=== PATIENT | female | born 1945 | race American Indian/Alaskan Native ===

== ENCOUNTER 2017-08-16 11:35 | Emergency (ER) | payer OTHER, MEDICARE ==
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
[2017-08-16 12:22] LABS: CHLORIDE,CL 106 mmol/L (101-111); SODIUM,NA 135 mmol/L (135-145)
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
== END 2017-08-16 13:22 | disposition home or self-care (01) ==
LOC: DL.ED 11:35
DX: S60.211A Contusion of right wrist, initial encounter (principal); S80.211A Abrasion, right knee, initial encounter; I10 Essential (primary) hypertension; I25.10 Atherosclerotic heart disease of native coronary artery without angina pectoris; E78.00 Pure hypercholesterolemia, unspecified; E11.42 Type 2 diabetes mellitus with diabetic polyneuropathy; Z79.4 Long term (current) use of insulin; Z79.82 Long term (current) use of aspirin; Z79.02 Long term (current) use of antithrombotics/antiplatelets; Z79.899 Other long term (current) drug therapy; Z88.0 Allergy status to penicillin; Z88.5 Allergy status to narcotic agent; Z88.8 Allergy status to other drugs, medicaments and biological substances; V43.53XA Car driver injured in collision with pick-up truck in traffic accident, initial encounter; Y92.410 Unspecified street and highway as the place of occurrence of the external cause
CPT/HCPCS: 36415; 73110; 80053; 80305; 81001; 85025; 87086; 99291; 99292; G0480

== ENCOUNTER 2017-12-01 16:43 | Emergency (ER) | payer MEDICARE, OTHER ==
[2017-12-01 18:04] LABS: CHLORIDE,CL 108 mmol/L (101-111); SODIUM,NA 133 mmol/L (135-145)
[2017-12-01] MEDS ORDERED: Fluconazole 100 MG Tab PO ONE (19:03)
[2017-12-01] MEDS ORDERED: Nitrofurantoin Monohydrate/Macrocrystalline 100 MG Cap PO ONE (19:03)
[2017-12-01] MEDS ORDERED: Fluconazole 100 MG Tab ONE ×2 (19:28→19:29)
[2017-12-01 19:47] VITALS: BP 126/62
[2017-12-02] MEDS ORDERED: Fluconazole 100 MG Tab PO SCH (09:00)
--- NOTE | 2017-12-02 13:59 | EDM.PDOC ---
Scribed by Isabel Wilson 12/01/[id number] for Jennifer Vallejo NP ED HPI GENERAL MEDICAL PROBLEM - General Chief Complaint: General Stated Complaint: [id number] DIZZY FOR 3 DAYS-GETTING WORSE Time Seen by Provider: 12/01/17 17:23 Source of Information: Reports: Patient, RN, RN Notes Reviewed History Limitations: Reports: No Limitations - History of Present Illness INITIAL COMMENTS - FREE TEXT/NARRATIVE: Patient presents to ER with complaint of dizziness which began 4 days ago. Yesterday she had visual disturbance--more blurred than usual. Denies ringing in her ears or ear pain. She is taking Claritin for sinuses. She has sinus congestion and nausea. She denies cough, fever, chills, vomiting, diarrhea, sore throat, headache, chest pains, palpitations or shortness of breath. Onset: Gradual Location: Reports: Head Quality: Reports: Ache Severity: Moderate Improves with: Reports: None Worsens with: Reports: None Associated Symptoms: Reports: No Other Symptoms - Related Data Allergies Allergy/AdvReac Type Severity Reaction Status Date / Time amitriptyline HCl Allergy Cannot Verified 12/01/17 16:58 [From Elavil] Remember amlodipine besylate Allergy Dizziness Verified 12/01/17 16:58 [From Norvasc] codeine Allergy Irritabilit Verified 12/01/17 16:58 y gemfibrozil [From Lopid] Allergy Cannot Verified 12/01/17 16:58 Remember metformin Allergy Shaking Verified 12/01/17 16:58 Penicillins Allergy Rash Verified 12/01/17 16:58 propranolol HCl Allergy Cannot Verified 12/01/17 16:58 [From Inderal LA] Remember Home Meds: Home Meds Acetaminophen 650 mg PO Q4HR PRN 09/21/14 [History] Aspirin [Ecotrin] 81 mg PO DAILY 09/21/14 [History] Furosemide [Furosemide] 1 tab PO DAILY 09/21/14 [History] Insulin Aspart [NovoLOG] 20 unit SQ TID 09/21/14 [History] Insulin Detemir [Levemir] 75 unit SQ BEDTIME 09/21/14 [History] Lisinopril [Prinivil] 20 mg PO DAILY 09/21/14 [History] Loratadine 10 mg PO DAILY 09/21/14 [History] Metoprolol Succinate [Toprol XL] 50 mg PO DAILY 09/21/14 [History] amLODIPine Besylate [Amlodipine Besylate] 10 mg PO DAILY 09/21/14 [History] Ibuprofen [Motrin] 800 mg PO Q6H PRN 06/16/15 [History] Clopidogrel [Plavix] 75 mg PO DAILY 11/22/15 [History] Pioglitazone [Actos] 30 mg PO DAILY 12/01/17 [History] glipiZIDE [Glucotrol] 10 mg PO BID 12/01/17 [History] Past Medical History HEENT History: Reports: Impaired Vision Other HEENT History: wears glasses Cardiovascular History: Reports: CAD, High Cholesterol, Hypertension, [place] Musculoskeletal History: Reports: Osteoarthritis Neurological History: Reports: Neuropathy, Diabetic Endocrine/Metabolic History: Reports: Diabetes, Type II, Obesity/BMI 30+ - Past Surgical History HEENT Surgical History: Reports: Cataract Surgery Cardiovascular Surgical History: Reports: Coronary Artery Bypass Musculoskeletal Surgical History: Reports: Other (See Below) Social & Family History - Family History Family Medical History: Noncontributory - Tobacco Use Smoking Status *Q: Never Smoker Second Hand Smoke Exposure: No - Caffeine Use Caffeine Use: Reports: Coffee - Alcohol Use Days Per Week of Alcohol Use: 0 - Recreational Drug Use Recreational Drug Use: No - Living Situation & Occupation Living situation: Reports: Occupation: Retired ED ROS GENERAL - Review of Systems Review Of Systems: ROS reveals no pertinent complaints other than HPI. ED EXAM, GENERAL - Physical Exam Exam: See Below Exam Limited By: No Limitations General Appearance: Alert, WD/WN, No Apparent Distress Eye Exam: Bilateral Eye: Other (pupils -3 sluggish. ) Ears: Normal External Exam, Normal Canal, Hearing Grossly Normal, Normal TMs Nose: Other (maxillary sinus tenderness.) Throat/Mouth: Other (erythematous oropharynx) Head: Atraumatic, Normocephalic Neck: Normal Inspection, Supple, Non-Tender, Full Range of Motion Respiratory/Chest: Crackles (bases bilateral) Cardiovascular: Regular Rate, Rhythm GI/Abdominal: Normal Bowel Sounds, Soft, Non-Tender, No Organomegaly, No Distention, No Abnormal Bruit, No Mass (Female) Exam: Deferred Rectal (Female) Exam: Deferred Back Exam: Normal Inspection, Full Range of Motion, NT Extremities: Normal Inspection, Normal Range of Motion, Non-Tender, Normal Capillary Refill, No Pedal Edema Neurological: Alert, Oriented, CN II-XII Intact, Normal Cognition, Normal Gait, Normal Reflexes, No Motor/Sensory Deficits Psychiatric: Normal Affect, Normal Mood Skin Exam: Warm, Dry, Intact, Normal Color, No Rash Lymphatic: No Adenopathy EKG INTERPRETATION EKG Date: 12/01/17 Time: 17:35 Rhythm: Other (sinus bradycardia) Rate (Beats/Min): 57 Comparison: Change From Previous EKG Course - Vital Signs Last Recorded V/S: Last Vital Signs Temp 97.8 F 12/01/17 19:40 Pulse 57 L 12/01/17 19:40 Resp 16 12/01/17 19:40 BP 126/62 12/01/17 19:40 Pulse Ox 100 12/01/17 19:40 - Orders/Labs/Meds Orders: Active Orders 24 hr Category Date Time Status EKG Documentation Completion [RC] STAT Care 12/01/17 17:32 Active CULTURE URINE [RM] Stat Lab 12/01/17 18:13 Received Labs: Laboratory Tests 12/01/17 12/01/17 12/01/17 Range/Units 17:40 17:40 17:40 WBC 7.3 (5.0-10.0) 10^3/uL RBC 3.38 L (4.2-5.4) 10^6/uL Hgb 9.3 L D (12.0-16.0) g/dL Hct 29.4 L (37.0-47.0) % MCV 87.0 (80-100) fL MCH 27.5 (27.0-34.0) pg MCHC 31.6 L (33.0-35.0) g/dL Plt Count 416 (150-450) 10^3/uL Neut % (Auto) 47.3 (42.2-75.2) % Lymph % (Auto) 33.7 (20.5-50.1) % [place] % (Auto) 13.9 H (2-8) % Eos % (Auto) 4.4 H (1.0-3.0) % Baso % (Auto) 0.7 (0.0-1.0) % Sodium 133 L (135-145) mmol/L Potassium 4.9 (3.6-5.0) mmol/L Chloride 108 (101-111) mmol/L Carbon Dioxide 17.0 L (21.0-31.0) mmol/L Anion Gap 12.9 BUN 36 H (7-18) mg/dL Creatinine 1.3 (0.6-1.3) mg/dL Est Cr Clr Drug Dosing TNP Estimated GFR (MDRD) 40 BUN/Creatinine Ratio 27.69 Glucose 243 H (74-105) mg/dL Calcium 8.8 (8.4-10.2) mg/dl Total Bilirubin 0.2 (0.2-1.0) mg/dL AST 13 (10-42) IU/L ALT 11 (10-60) IU/L Alkaline Phosphatase 83 (42-121) IU/L Creatine Kinase 32 (26-174) IU/L Creatine Kinase Index 6.3 H (0-2.4) % CK-MB (CK-2) 2.00 (0.4-4.7) ng/mL Troponin I (0.00-0.02) ng/ml Total Protein 7.0 (6.7-8.2) g/dl Albumin 2.8 L (3.2-5.5) g/dl Globulin 4.2 Albumin/Globulin Ratio 0.67 Urine Color (YELLOW) Urine Appearance (CLEAR) Urine pH (5.0-9.0) Ur Specific [place] (1.005-1.030) Urine Protein (NEGATIVE) Urine Glucose (UA) (NEGATIVE) Urine Ketones (NEGATIVE) Urine Occult Blood (NEGATIVE) Urine Nitrite (NEGATIVE) Urine Bilirubin (NEGATIVE) Urine Urobilinogen (0.2-1.0) mg/dL Ur Leukocyte Esterase (NEGATIVE) Urine RBC /HPF Urine WBC (0-5/HPF) /HPF Ur Epithelial Cells /HPF Amorphous Sediment (0/HPF) /HPF Urine Bacteria (0-FEW/HPF) /HPF Urine Mucus /LPF Urine Yeast (0/HPF) /HPF 12/01/17 12/01/17 Range/Units 17:40 18:13 WBC (5.0-10.0) 10^3/uL RBC (4.2-5.4) 10^6/uL Hgb (12.0-16.0) g/dL Hct (37.0-47.0) % MCV (80-100) fL MCH (27.0-34.0) pg MCHC (33.0-35.0) g/dL Plt Count (150-450) 10^3/uL Neut % (Auto) (42.2-75.2) % Lymph % (Auto) (20.5-50.1) % [place] % (Auto) (2-8) % Eos % (Auto) (1.0-3.0) % Baso % (Auto) (0.0-1.0) % Sodium (135-145) mmol/L Potassium (3.6-5.0) mmol/L Chloride (101-111) mmol/L Carbon Dioxide (21.0-31.0) mmol/L Anion Gap BUN (7-18) mg/dL Creatinine (0.6-1.3) mg/dL Est Cr Clr Drug Dosing Estimated GFR (MDRD) BUN/Creatinine Ratio Glucose (74-105) mg/dL Calcium (8.4-10.2) mg/dl Total Bilirubin (0.2-1.0) mg/dL AST (10-42) IU/L ALT (10-60) IU/L Alkaline Phosphatase (42-121) IU/L Creatine Kinase (26-174) IU/L Creatine Kinase Index (0-2.4) % CK-MB (CK-2) (0.4-4.7) ng/mL Troponin I < 0.02 (0.00-0.02) ng/ml Total Protein (6.7-8.2) g/dl Albumin (3.2-5.5) g/dl Globulin Albumin/Globulin Ratio Urine Color Yellow (YELLOW) Urine Appearance Turbid (CLEAR) Urine pH 5.0 (5.0-9.0) Ur Specific [place] 1.015 (1.005-1.030) Urine Protein 100 H (NEGATIVE) Urine Glucose (UA) 500 H (NEGATIVE) Urine Ketones Negative (NEGATIVE) Urine Occult Blood Moderate H (NEGATIVE) Urine Nitrite Negative (NEGATIVE) Urine Bilirubin Negative (NEGATIVE) Urine Urobilinogen 0.2 (0.2-1.0) mg/dL Ur Leukocyte Esterase Large H (NEGATIVE) Urine RBC 50-75 H /HPF Urine WBC >100 H (0-5/HPF) /HPF Ur Epithelial Cells Many H /HPF Amorphous Sediment Many H (0/HPF) /HPF Urine Bacteria Many H (0-FEW/HPF) /HPF Urine Mucus Many H /LPF Urine Yeast Moderate H (0/HPF) /HPF Meds: Medications Discontinued Medications Generic Name Dose Route Start Last Admin Trade Name Az PRN Reason Stop Dose Admin Fluconazole 150 mg 12/01/17 19:03 12/01/17 19:32 Diflucan PO 12/01/17 19:04 Not Given ONETIME ONE Fluconazole 200 mg 12/02/17 09:00 Diflucan PO DAILY ARIELLE Fluconazole Confirm 12/01/17 19:28 12/01/17 19:33 Diflucan Administered 12/01/17 19:29 Not Given Dose 100 mg .ROUTE .STK-MED ONE Fluconazole Confirm 12/01/17 19:29 12/01/17 19:33 Diflucan Administered 12/01/17 19:30 Not Given Dose 100 mg .ROUTE .STK-MED ONE Nitrofurantoin Macrocrystals 100 mg 12/01/17 19:03 12/01/17 19:32 Macrobid PO 12/01/17 19:04 100 mg ONETIME ONE Administration Departure - Departure Time of Disposition: 19:07 Disposition: Home, Self-Care 01 Condition: Fair Clinical Impression: Candidiasis of urogenital site UTI (urinary tract infection) Qualifiers: Urinary tract infection type: site unspecified Hematuria presence: without hematuria Qualified Code(s): N39.0 - Urinary tract infection, site not specified - Discharge Information Instructions: Vaginal Yeast Infection, Adult, Urinary Tract Infection, Adult Forms: ED Department Discharge Additional Instructions: RX: Diflucan, Macrobid Drink plenty of water Follow up with your primary care facility, urology consult - My Orders Last 24 Hours: My Active Orders 12/01/17 17:32 EKG Documentation Completion [RC] STAT 12/01/17 18:13 CULTURE URINE [RM] Stat - Assessment/Plan Last 24 Hours: My Active Orders 12/01/17 17:32 EKG Documentation Completion [RC] STAT 12/01/17 18:13 CULTURE URINE [RM] Stat I have read and agree with the documentation that has been completed regarding this visit. By signing this record, I attest that the documentation was completed in my physical presence and is an accurate record of the encounter.
--- NOTE | 2017-12-04 12:25 | EKG ---
12/01/2017- OSWALD HOWELL - EKG per my reading shows sinus rhythm at the rate of 57 with inferior Q-waves. [facility] /[id number]
== END 2017-12-01 19:43 | disposition home or self-care (01) ==
LOC: DL.ED 16:43
DX: B37.49 Other urogenital candidiasis (principal); I10 Essential (primary) hypertension; I25.10 Atherosclerotic heart disease of native coronary artery without angina pectoris; E78.00 Pure hypercholesterolemia, unspecified; E11.40 Type 2 diabetes mellitus with diabetic neuropathy, unspecified; Z95.1 Presence of aortocoronary bypass graft; Z79.82 Long term (current) use of aspirin; Z79.4 Long term (current) use of insulin; Z79.02 Long term (current) use of antithrombotics/antiplatelets; Z79.899 Other long term (current) drug therapy; Z88.0 Allergy status to penicillin; Z88.8 Allergy status to other drugs, medicaments and biological substances; Z88.5 Allergy status to narcotic agent
CPT/HCPCS: 36415; 80053; 81001; 82272; 82550; 82553; 84484; 85025; 87086; 93005; 93010; 99284; A9270

== ENCOUNTER 2018-01-22 13:45 | Emergency (ER) | payer MEDICARE, OTHER ==
--- NOTE | 2018-01-22 13:52 | EDM.PDOC ---
ED HPI GENERAL MEDICAL PROBLEM - General Stated Complaint: POTASSIUM Time Seen by Provider: 01/22/18 13:50 Source of Information: Reports: Patient, RN, RN Notes Reviewed History Limitations: Reports: No Limitations - History of Present Illness INITIAL COMMENTS - FREE TEXT/NARRATIVE: Pt presents to the ER from [facility]. She was referred to the ER by Dr. Beltran. Report from Dr. Beltran was that the patient had labs completed at the clinic and her Potassium was 5.9 with a Bicarb of 14. Patient is to be taking oral Sodium Bicarb but has not been taking her medications as prescribed. Dr. Beltran would like her further evaluated here. Pt. states she was seeing Dr. Beltran for a diabetic follow up appointment today when she was told her labs were abnormal and that she needed to come to the ER. Patient denies any palpitations, chest pain, SOB, fever, chills, N/V/D. She states she has had somewhat of a cough for the past week. Pt states she has not been taking her medications as prescribed. Onset: Gradual - Related Data Allergies Allergy/AdvReac Type Severity Reaction Status Date / Time amitriptyline HCl Allergy Cannot Verified 12/01/17 16:58 [From Elavil] Remember amlodipine besylate Allergy Dizziness Verified 12/01/17 16:58 [From Norvasc] codeine Allergy Irritabilit Verified 12/01/17 16:58 y gemfibrozil [From Lopid] Allergy Cannot Verified 12/01/17 16:58 Remember metformin Allergy Shaking Verified 12/01/17 16:58 Penicillins Allergy Rash Verified 12/01/17 16:58 propranolol HCl Allergy Cannot Verified 12/01/17 16:58 [From Inderal LA] Remember Home Meds: Home Meds Acetaminophen 650 mg PO Q4HR PRN 09/21/14 [History] Aspirin [Ecotrin] 81 mg PO DAILY 09/21/14 [History] Furosemide 1 tab PO DAILY 09/21/14 [History] Insulin Aspart [NovoLOG] 20 unit SQ TID 09/21/14 [History] Insulin Detemir [Levemir] 75 unit SQ BEDTIME 09/21/14 [History] Metoprolol Succinate [Toprol XL] 50 mg PO DAILY 09/21/14 [History] Ibuprofen [Motrin] 800 mg PO Q6H PRN 06/16/15 [History] Clopidogrel [Plavix] 75 mg PO DAILY 11/22/15 [History] Pioglitazone [Actos] 30 mg PO DAILY 12/01/17 [History] glipiZIDE [Glucotrol] 10 mg PO BID 12/01/17 [History] Docusate Sodium [Colace] 1 tab PO BID PRN 01/22/18 [History] Ferrous Sulfate [Iron] 1 tab PO DAILY 01/22/18 [History] Sodium Bicarbonate 1 tab PO BID 01/22/18 [History] atorvaSTATin [Lipitor] 1 tab PO DAILY 01/22/18 [History] Past Medical History HEENT History: Reports: Impaired Vision Other HEENT History: wears glasses Cardiovascular History: Reports: CAD, High Cholesterol, Hypertension, [place] Musculoskeletal History: Reports: Osteoarthritis Neurological History: Reports: Neuropathy, Diabetic Endocrine/Metabolic History: Reports: Diabetes, Type II, Obesity/BMI 30+ - Past Surgical History HEENT Surgical History: Reports: Cataract Surgery Cardiovascular Surgical History: Reports: Coronary Artery Bypass Musculoskeletal Surgical History: Reports: Other (See Below) Social & Family History - Family History Family Medical History: Noncontributory - Tobacco Use Smoking Status *Q: Never Smoker Second Hand Smoke Exposure: No - Caffeine Use Caffeine Use: Reports: Coffee - Alcohol Use Days Per Week of Alcohol Use: 0 - Recreational Drug Use Recreational Drug Use: No - Living Situation & Occupation Living situation: Reports: Occupation: Retired ED ROS GENERAL - Review of Systems Review Of Systems: ROS reveals no pertinent complaints other than HPI. ED EXAM, GENERAL - Physical Exam Exam: See Below Exam Limited By: No Limitations General Appearance: Alert, WD/WN, No Apparent Distress Eye Exam: Bilateral Eye: EOMI, Normal Inspection Ears: Normal External Exam, Hearing Grossly Normal Nose: Normal Inspection Throat/Mouth: Normal Inspection, Normal Voice, No Airway Compromise Head: Atraumatic, Normocephalic Neck: Normal Inspection Respiratory/Chest: No Respiratory Distress, Lungs Clear, Normal Breath Sounds, No Accessory Muscle Use, Chest Non-Tender Cardiovascular: Normal Peripheral Pulses, Regular Rate, Rhythm, No Edema, No Gallop, No JVD, No Murmur, No Rub Peripheral Pulses: 2+: Radial (L), Radial (R) GI/Abdominal: Normal Bowel Sounds, Soft, Non-Tender, No Organomegaly, No Distention, No Abnormal Bruit, No Mass (Female) Exam: Deferred Rectal (Female) Exam: Deferred Back Exam: Normal Inspection, Full Range of Motion, NT Extremities: Normal Inspection, Normal Range of Motion, Non-Tender, Normal Capillary Refill, No Pedal Edema Neurological: Alert, Oriented, CN II-XII Intact, Normal Cognition, Normal Gait, Normal Reflexes, No Motor/Sensory Deficits Psychiatric: Normal Affect, Normal Mood Skin Exam: Warm, Dry, Intact, Normal Color, No Rash Lymphatic: No Adenopathy EKG INTERPRETATION EKG Date: 01/22/18 Time: 14:11 Rhythm: NSR (PAC) Rate (Beats/Min): 61 [place]: Normal P-Wave: Present QRS: Wide ST-T: Normal QT: Normal Comparison: Change From Previous EKG Course - Vital Signs Last Recorded V/S: Last Vital Signs Temp 98.4 F 01/22/18 15:20 Pulse 67 01/22/18 15:20 Resp 18 01/22/18 15:20 BP 151/65 H 01/22/18 15:20 Pulse Ox 100 01/22/18 15:20 - Orders/Labs/Meds Orders: Active Orders 24 hr Category Date Time Status Blood Glucose Check, Bedside [RC] ONETIME Care 01/22/18 15:15 Active EKG Documentation Completion [RC] STAT Care 01/22/18 13:52 Active Sodium Bicarbonate Med 01/22/18 14:35 Active 650 mg PO DAILY Medication Orders Sodium Bicarbonate (Sodium Bicarbonate) 650 mg PO DAILY [facility] Last Admin: 01/22/18 14:47 Dose: 650 mg Labs: Laboratory Tests 01/22/18 01/22/18 01/22/18 Range/Units 14:00 14:00 15:15 WBC 7.7 (5.0-10.0) 10^3/uL RBC 3.67 L (4.2-5.4) 10^6/uL Hgb 10.3 L (12.0-16.0) g/dL Hct 32.2 L (37.0-47.0) % MCV 87.7 (80-100) fL MCH 28.1 (27.0-34.0) pg MCHC 32.0 L (33.0-35.0) g/dL Plt Count 388 (150-450) 10^3/uL Neut % (Auto) 52.5 (42.2-75.2) % Lymph % (Auto) 36.7 (20.5-50.1) % [place] % (Auto) 8.2 H (2-8) % Eos % (Auto) 2.3 (1.0-3.0) % Baso % (Auto) 0.3 (0.0-1.0) % Sodium 131 L (135-145) mmol/L Potassium 6.2 H (3.6-5.0) mmol/L Chloride 109 (101-111) mmol/L Carbon Dioxide 15.0 L (21.0-31.0) mmol/L Anion Gap 13.2 BUN 63 H D (7-18) mg/dL Creatinine 1.6 H (0.6-1.3) mg/dL Est Cr Clr Drug Dosing 24.77 mL/min Estimated GFR (MDRD) 32 BUN/Creatinine Ratio 39.37 Glucose 296 H (74-105) mg/dL POC Glucose 278 H (83-110) mg/dl Calcium 9.0 (8.4-10.2) mg/dl Magnesium 2.1 (1.8-2.5) mg/dL Total Bilirubin 0.4 (0.2-1.0) mg/dL AST 15 (10-42) IU/L ALT 13 (10-60) IU/L Alkaline Phosphatase 99 (42-121) IU/L Total Protein 7.8 (6.7-8.2) g/dl Albumin 3.3 (3.2-5.5) g/dl Globulin 4.5 Albumin/Globulin Ratio 0.73 Meds: Medications Generic Name Dose Route Start Last Admin Trade Name Freq PRN Reason Stop Dose Admin Sodium Bicarbonate 650 mg 01/22/18 14:35 01/22/18 14:47 Sodium Bicarbonate PO 650 mg DAILY ARIELLE Administration Discontinued Medications Generic Name Dose Route Start Last Admin Trade Name Freq PRN Reason Stop Dose Admin Insulin Human Regular 20 unit 01/22/18 14:37 01/22/18 14:45 Humulin R SUBCUT 01/22/18 14:38 20 unit ONETIME ONE Administration Sodium Polystyrene Sulfonate 15 gm 01/22/18 14:33 01/22/18 14:47 Kayexalate PO 01/22/18 14:34 15 gm ONETIME ONE Administration Departure - Departure Time of Disposition: 15:29 Disposition: Home, Self-Care 01 Condition: Fair Clinical Impression: Hyperkalemia, Hyperglycemia - Discharge Information Instructions: Hyperglycemia, [id number], Hyperkalemia, Ulno-ly-Hiar Forms: ED Department Discharge Additional Instructions: Follow up with Dr. Beltran at [facility] tomorrow for a recheck of labs. Take your insulin and other medications as prescribed. - My Orders Last 24 Hours: My Active Orders 01/22/18 13:52 EKG Documentation Completion [RC] STAT 01/22/18 14:35 Sodium Bicarbonate 650 mg PO DAILY 01/22/18 15:15 Blood Glucose Check, Bedside [RC] ONETIME - Assessment/Plan Last 24 Hours: My Active Orders 01/22/18 13:52 EKG Documentation Completion [RC] STAT 01/22/18 14:35 Sodium Bicarbonate 650 mg PO DAILY 01/22/18 15:15 Blood Glucose Check, Bedside [RC] ONETIME
[2018-01-22 14:27] LABS: ANION GAP 13.2
[2018-01-22] MEDS ORDERED: Sodium Polystyrene Sulfonate 15 GM/60 ML Susp 60 ML Bot PO ONE (14:33)
[2018-01-22] MEDS ORDERED: Sodium Bicarbonate 650 MG Tab PO SCH (14:35)
[2018-01-22] MEDS ORDERED: Insulin Regular, Human 100 Units/ML 3 ML Vial SUBCUT ONE (14:37)
[2018-01-22 15:21] VITALS: BP 151/65
--- NOTE | 2018-01-27 09:59 | EKG ---
01/22/2018- OSWALD HOWELL - EKG, per my reading, shows sinus rhythm at a rate of 61. [facility] /[id number]
== END 2018-01-22 15:40 | disposition home or self-care (01) ==
LOC: DL.ED 13:45
DX: E11.65 Type 2 diabetes mellitus with hyperglycemia (principal); E87.5 Hyperkalemia; Z79.82 Long term (current) use of aspirin; Z79.4 Long term (current) use of insulin; I10 Essential (primary) hypertension; I25.2 Old myocardial infarction; Z79.899 Other long term (current) drug therapy; Z88.8 Allergy status to other drugs, medicaments and biological substances; Z88.0 Allergy status to penicillin
CPT/HCPCS: 36415; 80053; 82962; 83735; 85025; 93005; 93010; 96372; 99285; A9270; J1815; 99284

== ENCOUNTER 2018-04-27 11:35 | Emergency (ER) | payer MEDICARE, OTHER ==
[2018-04-27 11:52] VITALS: BP 144/68
== END 2018-04-27 12:12 | disposition left against medical advice (07) ==
LOC: DL.ED 11:35
DX: Z53.21 Procedure and treatment not carried out due to patient leaving prior to being seen by health care provider (principal)

== ENCOUNTER 2019-10-07 17:28 | Emergency (ER) | payer MEDICARE, OTHER ==
[2019-10-07] MEDS ORDERED: Sodium Chloride 0.9% 10 ML Syringe FLUSH PRN (17:49)
[2019-10-07 18:02] VITALS: BP 149/64; PULSE 64
[2019-10-07 18:18] LABS: ANION GAP 14.5; CHLORIDE,CL 104 mmol/L (101-111); SODIUM,NA 133 mmol/L (135-145)
[2019-10-07] MEDS ORDERED: Ciprofloxacin 500 MG Tab PO ONE (19:06)
--- NOTE | 2019-10-07 19:14 | EDM.PDOC ---
"Scribed by Isabel Wilson 10/07/19 7280 for Avi Murray MD ED HPI GENERAL MEDICAL PROBLEM - General Chief Complaint: Neurological Problem Stated Complaint: SLURRING/MOUTH IS DROOPING Time Seen by Provider: 10/07/19 17:30 Source of Information: Reports: Patient, RN, RN Notes Reviewed History Limitations: Reports: No Limitations - History of Present Illness INITIAL COMMENTS - FREE TEXT/NARRATIVE: Patient presents to ER with daughter stating that at 1500 today she had left side facial droop and slurring of words. She said that it happened once yesterday also. She thinks her blood sugars are high, and her mouth feels dry. Denies headache, visual changes, slurred speech, or motor weakness. Also reports a few days of dysuria. Denies fever, chills, or flank pain. Onset: Today Duration: Resolved Prior to Arrival Location: Reports: Face Severity: Severe Improves with: Reports: None Worsens with: Reports: None Associated Symptoms: Reports: No Other Symptoms - Related Data Allergies Allergy/AdvReac Type Severity Reaction Status Date / Time gemfibrozil [From Lopid] Allergy Cannot Verified 12/05/18 14:50 Remember Penicillins Allergy Rash Verified 12/05/18 14:50 propranolol HCl Allergy Cannot Verified 12/05/18 14:50 [From Inderal LA] Remember codeine AdvReac Irritabilit Verified 12/05/18 14:50 y metformin AdvReac Shaking Verified 12/05/18 14:50 Home Meds: Home Meds Insulin Aspart [NovoLOG] 20 unit SQ TID 09/21/14 [History] Metoprolol Succinate [Toprol XL] 75 mg PO BID 09/21/14 [History] Aspirin [Lo-Dose Aspirin EC] 81 mg PO DAILY 11/17/18 [History] Clopidogrel [Plavix] 75 mg PO DAILY 11/17/18 [History] Ergocalciferol (Vitamin D2) [Vitamin D2] 50,000 unit PO WEEKLY 11/17/18 [History ] Furosemide 40 mg PO DAILY 11/17/18 [History] Oxybutynin Chloride [Ditropan Xl] 20 mg PO DAILY 11/17/18 [History] Sodium Bicarbonate 650 mg PO BID 11/17/18 [History] atorvaSTATin [Lipitor] 20 mg PO BEDTIME 11/17/18 [History] Past Medical History HEENT History: Reports: Impaired Vision Other HEENT History: wears glasses Cardiovascular History: Reports: CAD, High Cholesterol, Hypertension, MA, Stents Gastrointestinal History: Reports: Chronic Constipation Genitourinary History: Reports: UTI, Recurrent 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: Musculoskeletal History: Reports: Osteoarthritis Neurological History: Reports: Neuropathy, Diabetic Endocrine/Metabolic History: Reports: Diabetes, Type II, Obesity/BMI 30+ Hematologic History: Reports: Anemia - Past Surgical History HEENT Surgical History: Reports: Cataract Surgery Cardiovascular Surgical History: Reports: Coronary Artery Bypass GI Surgical History: Reports: Hernia Repair/Other Female Surgical History: Reports: Other (See Below) Other Female Surgeries/Procedures: bladder surgery Social & Family History - Family History Family Medical History: Noncontributory - Caffeine Use Caffeine Use: Reports: None - Living Situation & Occupation Living situation: Reports: Occupation: Retired ED ROS GENERAL - Review of Systems Review Of Systems: Comprehensive ROS is negative, except as noted in HPI. ED EXAM, NEURO - Physical Exam Exam: See Below Exam Limited By: No Limitations General Appearance: Alert, WD/WN, No Apparent Distress Eye Exam: Bilateral Eye: EOMI, Normal Inspection, PERRL Ears: Normal External Exam, Normal Canal, Hearing Grossly Normal, Normal TMs Nose: Normal Inspection, Normal Mucosa, No Blood Throat/Mouth: Normal Inspection, Normal Lips, Normal Teeth, Normal Gums, Normal Oropharynx, Normal Voice, No Airway Compromise Head Exam: Atraumatic, Normocephalic Neck: Normal Inspection, Supple, Non-Tender, Full Range of Motion Respiratory/Chest: No Respiratory Distress, Lungs Clear, Normal Breath Sounds, No Accessory Muscle Use, Chest Non-Tender Cardiovascular: Normal Peripheral Pulses, Regular Rate, Rhythm, No Edema, No Gallop, No JVD, No Murmur, No Rub GI/Abdominal: Normal Bowel Sounds, Soft, Non-Tender, No Organomegaly, No Distention, No Abnormal Bruit, No Mass (Female) Exam: Deferred Rectal (Female) Exam: Deferred Neurological: Alert, Normal Mood/Affect, Normal Dorsiflexion, CN II-XII Intact, Normal Plantar Flexion, Normal Gait, Normal Reflexes, No Motor/Sensory Deficits , Oriented x 3, Other (NIH score 0.) Back Exam: Normal Inspection, Full Range of Motion, NT Extremities: Normal Inspection, Normal Range of Motion, Non-Tender, No Pedal Edema, Normal Capillary Refill Psychiatric: Normal Affect, Normal Mood Skin Exam: Warm, Dry, Intact, Normal Color, No Rash EKG INTERPRETATION EKG Date: 10/07/19 Time: 17:57 Rhythm: Other (sinus rhythm) Rate (Beats/Min): 63 Yoder: Normal P-Wave: Present QRS: Other (abnormal R wave progression in the anterior and lateral leads. Inferior Q waves.) ST-T: Normal QT: Normal Comparison: No Change Course - Vital Signs Last Recorded V/S: Last Vital Signs Temp 98.3 F 10/07/19 18:00 Pulse 64 10/07/19 18:00 Resp 26 H 10/07/19 18:00 BP 149/64 H 10/07/19 18:00 Pulse Ox 100 10/07/19 18:00 - Orders/Labs/Meds Orders: Active Orders 24 hr Category Date Time Status Blood Glucose Check, Bedside [RC] ONETIME Care 10/07/19 17:50 Active EKG 12 Lead [EKG Documentation Completion] [RC] STAT Care 10/07/19 17:50 Active NIH Stroke Scale [RC] ASDIRECTED Care 10/07/19 17:49 Active Peripheral IV Care [RC] . DIRECTED Care 10/07/19 17:50 Active Chest 1V Frontal [CR] Stat Exams 10/07/19 17:50 Taken Head wo Cont [CT] Stat Exams 10/07/19 17:48 Taken CULTURE URINE [RM] Stat Lab 10/07/19 18:29 Received Sodium Chloride 0.9% [Saline Flush] Med 10/07/19 17:49 Active 10 ml FLUSH ASDIRECTED PRN Peripheral IV Insertion Adult [OM.PC] Stat Oth 10/07/19 17:50 Ordered Medication Orders Sodium Chloride (Saline Flush) 10 ml FLUSH ASDIRECTED PRN PRN Reason: Keep Vein Open Last Admin: 10/07/19 18:11 Dose: 10 ml Labs: Laboratory Tests 10/07/19 10/07/19 10/07/19 Range/Units 17:38 17:46 17:46 WBC 7.3 (5.0-10.0) 10^3/uL RBC 3.65 L (4.2-5.4) 10^6/uL Hgb 10.3 L (12.0-16.0) g/dL Hct 31.9 L (37.0-47.0) % MCV 87.4 D (80-100) fL MCH 28.2 (27.0-34.0) pg MCHC 32.3 L (33.0-35.0) g/dL Plt Count 326 (150-450) 10^3/uL Neut % (Auto) 41.5 L (42.2-75.2) % Lymph % (Auto) 41.7 (20.5-50.1) % Bath % (Auto) 9.4 H (2-8) % Eos % (Auto) 6.7 H (1.0-3.0) % Baso % (Auto) 0.7 (0.0-1.0) % PT 9.5 (9.0-12.0) SEC INR 0.9 (0.9-1.2) APTT (22.0-34.0) SEC Sodium (135-145) mmol/L Potassium (3.6-5.0) mmol/L Chloride (101-111) mmol/L Carbon Dioxide (21.0-31.0) mmol/L Anion Gap BUN (7-18) mg/dL Creatinine (0.6-1.3) mg/dL Est Cr Clr Drug Dosing mL/min Estimated GFR (MDRD) BUN/Creatinine Ratio Glucose (74-105) mg/dL POC Glucose 235 H (83-110) mg/dl Calcium (8.4-10.2) mg/dl Total Bilirubin (0.2-1.0) mg/dL AST (10-42) IU/L ALT (10-60) IU/L Alkaline Phosphatase (42-121) IU/L Troponin I (0.00-0.02) ng/ml Total Protein (6.7-8.2) g/dl Albumin (3.2-5.5) g/dl Globulin Albumin/Globulin Ratio Urine Color (YELLOW) Urine Appearance (CLEAR) Urine pH (5.0-9.0) Ur Specific [place] (1.005-1.030) Urine Protein (NEGATIVE) Urine Glucose (UA) (NEGATIVE) Urine Ketones (NEGATIVE) Urine Occult Blood (NEGATIVE) Urine Nitrite (NEGATIVE) Urine Bilirubin (NEGATIVE) Urine Urobilinogen (0.2-1.0) mg/dL Ur Leukocyte Esterase (NEGATIVE) Urine RBC /HPF Urine WBC (0-5/HPF) /HPF Ur Epithelial Cells (NOT SEEN) /HPF Amorphous Sediment (NOT SEEN) /HPF Urine Bacteria (0-FEW/HPF) /HPF Urine Mucus (NOT SEEN) /LPF Urine Opiates Screen (NEGATIVE) Ur Oxycodone Screen (NEGATIVE) Urine Methadone Screen (NEGATIVE) Ur Barbiturates Screen (NEGATIVE) U Tricyclic Antidepress (NEGATIVE) Ur Phencyclidine Scrn (NEGATIVE) Ur Amphetamine Screen (NEGATIVE) U Methamphetamines Scrn (NEGATIVE) Urine MDMA Screen (NEGATIVE) U Benzodiazepines Scrn (NEGATIVE) Urine Cocaine Screen (NEGATIVE) U Marijuana (THC) Screen (NEGATIVE) Ethyl Alcohol mg/dL 10/07/19 10/07/19 10/07/19 Range/Units 17:46 17:46 18:29 WBC (5.0-10.0) 10^3/uL RBC (4.2-5.4) 10^6/uL Hgb (12.0-16.0) g/dL Hct (37.0-47.0) % MCV (80-100) fL MCH (27.0-34.0) pg MCHC (33.0-35.0) g/dL Plt Count (150-450) 10^3/uL Neut % (Auto) (42.2-75.2) % Lymph % (Auto) (20.5-50.1) % Bath % (Auto) (2-8) % Eos % (Auto) (1.0-3.0) % Baso % (Auto) (0.0-1.0) % PT (9.0-12.0) SEC INR (0.9-1.2) APTT 23.4 (22.0-34.0) SEC Sodium 133 L (135-145) mmol/L Potassium 4.5 (3.6-5.0) mmol/L Chloride 104 (101-111) mmol/L Carbon Dioxide 19.0 L (21.0-31.0) mmol/L Anion Gap 14.5 BUN 37 H (7-18) mg/dL Creatinine 1.5 H (0.6-1.3) mg/dL Est Cr Clr Drug Dosing 26.81 mL/min Estimated GFR (MDRD) 34 BUN/Creatinine Ratio 24.66 Glucose 252 H (74-105) mg/dL POC Glucose (83-110) mg/dl Calcium 8.8 (8.4-10.2) mg/dl Total Bilirubin 0.5 (0.2-1.0) mg/dL AST 13 (10-42) IU/L ALT 8 L (10-60) IU/L Alkaline Phosphatase 81 (42-121) IU/L Troponin I 0.02 (0.00-0.02) ng/ml Total Protein 7.0 (6.7-8.2) g/dl Albumin 3.3 (3.2-5.5) g/dl Globulin 3.7 Albumin/Globulin Ratio 0.89 Urine Color Dark yellow (YELLOW) Urine Appearance Cloudy (CLEAR) Urine pH 7.5 (5.0-9.0) Ur Specific [place] 1.020 (1.005-1.030) Urine Protein 100 H (NEGATIVE) Urine Glucose (UA) Negative (NEGATIVE) Urine Ketones Negative (NEGATIVE) Urine Occult Blood Moderate H (NEGATIVE) Urine Nitrite Negative (NEGATIVE) Urine Bilirubin Negative (NEGATIVE) Urine Urobilinogen 2.0 H (0.2-1.0) mg/dL Ur Leukocyte Esterase Large H (NEGATIVE) Urine RBC 10-20 H /HPF Urine WBC >100 H (0-5/HPF) /HPF Ur Epithelial Cells Few (NOT SEEN) /HPF Amorphous Sediment Few (NOT SEEN) /HPF Urine Bacteria Moderate H (0-FEW/HPF) /HPF Urine Mucus Few H (NOT SEEN) /LPF Urine Opiates Screen (NEGATIVE) Ur Oxycodone Screen (NEGATIVE) Urine Methadone Screen (NEGATIVE) Ur Barbiturates Screen (NEGATIVE) U Tricyclic Antidepress (NEGATIVE) Ur Phencyclidine Scrn (NEGATIVE) Ur Amphetamine Screen (NEGATIVE) U Methamphetamines Scrn (NEGATIVE) Urine MDMA Screen (NEGATIVE) U Benzodiazepines Scrn (NEGATIVE) Urine Cocaine Screen (NEGATIVE) U Marijuana (THC) Screen (NEGATIVE) Ethyl Alcohol < 5 mg/dL 10/07/19 Range/Units 18:29 WBC (5.0-10.0) 10^3/uL RBC (4.2-5.4) 10^6/uL Hgb (12.0-16.0) g/dL Hct (37.0-47.0) % MCV (80-100) fL MCH (27.0-34.0) pg MCHC (33.0-35.0) g/dL Plt Count (150-450) 10^3/uL Neut % (Auto) (42.2-75.2) % Lymph % (Auto) (20.5-50.1) % Bath % (Auto) (2-8) % Eos % (Auto) (1.0-3.0) % Baso % (Auto) (0.0-1.0) % PT (9.0-12.0) SEC INR (0.9-1.2) APTT (22.0-34.0) SEC Sodium (135-145) mmol/L Potassium (3.6-5.0) mmol/L Chloride (101-111) mmol/L Carbon Dioxide (21.0-31.0) mmol/L Anion Gap BUN (7-18) mg/dL Creatinine (0.6-1.3) mg/dL Est Cr Clr Drug Dosing mL/min Estimated GFR (MDRD) BUN/Creatinine Ratio Glucose (74-105) mg/dL POC Glucose (83-110) mg/dl Calcium (8.4-10.2) mg/dl Total Bilirubin (0.2-1.0) mg/dL AST (10-42) IU/L ALT (10-60) IU/L Alkaline Phosphatase (42-121) IU/L Troponin I (0.00-0.02) ng/ml Total Protein (6.7-8.2) g/dl Albumin (3.2-5.5) g/dl Globulin Albumin/Globulin Ratio Urine Color (YELLOW) Urine Appearance (CLEAR) Urine pH (5.0-9.0) Ur Specific [place] (1.005-1.030) Urine Protein (NEGATIVE) Urine Glucose (UA) (NEGATIVE) Urine Ketones (NEGATIVE) Urine Occult Blood (NEGATIVE) Urine Nitrite (NEGATIVE) Urine Bilirubin (NEGATIVE) Urine Urobilinogen (0.2-1.0) mg/dL Ur Leukocyte Esterase (NEGATIVE) Urine RBC /HPF Urine WBC (0-5/HPF) /HPF Ur Epithelial Cells (NOT SEEN) /HPF Amorphous Sediment (NOT SEEN) /HPF Urine Bacteria (0-FEW/HPF) /HPF Urine Mucus (NOT SEEN) /LPF Urine Opiates Screen Negative (NEGATIVE) Ur Oxycodone Screen Negative (NEGATIVE) Urine Methadone Screen Negative (NEGATIVE) Ur Barbiturates Screen Negative (NEGATIVE) U Tricyclic Antidepress Negative (NEGATIVE) Ur Phencyclidine Scrn Negative (NEGATIVE) Ur Amphetamine Screen Negative (NEGATIVE) U Methamphetamines Scrn Negative (NEGATIVE) Urine MDMA Screen Negative (NEGATIVE) U Benzodiazepines Scrn Negative (NEGATIVE) Urine Cocaine Screen Negative (NEGATIVE) U Marijuana (THC) Screen Negative (NEGATIVE) Ethyl Alcohol mg/dL Meds: Medications Generic Name Dose Route Start Last Admin Trade Name Freq PRN Reason Stop Dose Admin Sodium Chloride 10 ml 10/07/19 17:49 10/07/19 18:11 Saline Flush FLUSH 10 ml ASDIRECTED PRN Administration Keep Vein Open Discontinued Medications Generic Name Dose Route Start Last Admin Trade Name Freq PRN Reason Stop Dose Admin Ciprofloxacin 500 mg 10/07/19 19:06 Ciprofloxacin Hcl PO 10/07/19 19:07 ONETIME ONE - Radiology Interpretation Free Text/Narrative:: [facility] Final Radiology Report Call: [phone] assistance Online chat: [email or web address] Name: OSWALD HOWELL Age: 74Years F Date: 10/07/2019 SSN: -- : [id number] Study: CT HEAD WO Requesting Physician: AVI MURRAY Images: 145 Addl Studies: Provided Clinical History: Contrast: Without Contrast Medium: Contrast Amount: Contrast Method: Page 1 of 2 PROCEDURE INFORMATION: Exam: CT Head Without Contrast Exam date and time: 10/07/2019 5:40 PM Age: 74 years old Clinical indication: Other: Stroke code, left facial droop TECHNIQUE: Imaging protocol: Computed tomography of the head without contrast. Radiation optimization: All CT scans at this facility use at least one of these dose optimization techniques: automated exposure control; mA and/or kV adjustment per patient size (includes targeted exams where dose is matched to clinical indication); or iterative reconstruction. COMPARISON: No relevant prior studies available. FINDINGS: Brain: There is diffuse cerebral atrophy concordant with the patient's age. Chronic small vessel deep white matter ischemic disease is suggested by areas of patchy white matter low attenuation. No intracranial hemorrhage. No acute large territory CVA. No mass. No acute edema. No acute intracranial abnormality. Benign-appearing left basal gangliar region calcification. Ventricles: Normal. No ventriculomegaly. Bones/joints: Unremarkable. No acute fracture. Sinuses: Visualized sinuses are unremarkable. No fluid levels. Mastoid air cells: Visualized mastoid air cells are well aerated. Soft tissues: Unremarkable. IMPRESSION: 1. No acute intracranial abnormality. 2. No large territory acute CVA. 3. No intracranial hemorrhage. OSWALD HOWELL | Final Radiology Report CONFIDENTIALITY STATEMENT This report is intended only for use by the referring physician, and only in accordance with law. If you received this in error, call [phone]. Page 2 of 2 4. 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 Thank you for allowing us to participate in the care of your patient. Dictated and Authenticated by: Bar Liu, 10/07/2019 6:09 PM Central Time ([place] & [place]) [facility] Final Radiology Report Call: [phone] assistance Online chat: [email or web address] Name: OSWALD HOWELL Age: 74Years F Date: 10/07/2019 SSN: -- : 1945 Study: XR CHEST 1 VIEW FRONTAL Requesting Physician: AVI MURRAY Images: 1 Addl Studies: Provided Clinical History: Contrast: Contrast Medium: Contrast Amount: Contrast Method: CONFIDENTIALITY STATEMENT This report is intended only for use by the referring physician, and only in accordance with law. If you received this in error, call [phone]. Page 1 of 1 PROCEDURE INFORMATION: Exam: XR Chest, 1 View Exam date and time: 10/07/2019 6:03 PM Age: 74 years old Clinical indication: Other: Stroke code, possible aspiration TECHNIQUE: Imaging protocol: XR of the chest Views: 1 view. COMPARISON: CR Chest 1V Frontal 11/17/2018 1:31 PM FINDINGS: Lungs: Bibasilar atelectatic lung features. Some linear areas of opacification noted. This may represent scarring. There are similar features seen on prior study 11/17/2018. Pleural space: Unremarkable. No pleural effusion. No pneumothorax. Heart/Mediastinum: [id number] cardiac enlargement. Previous open-heart surgery. Bones/joints: Unremarkable. IMPRESSION: 1. Bibasilar linear scarring versus minor atelectasis. 2. [id number] cardiac enlargement. Previous open-heart surgery. 3. No acute edema or infiltrates. Thank you for allowing us to participate in the care of your patient. Dictated and Authenticated by: Bar Liu MD 10/07/2019 6:10 PM Central Time ([place] & [place]) Departure - Departure Time of Disposition: 19:12 Disposition: Home, Self-Care 01 Condition: Good Clinical Impression: UTI (urinary tract infection) Qualifiers: Urinary tract infection type: site unspecified Hematuria presence: without hematuria Qualified Code(s): N39.0 - Urinary tract infection, site not specified - Discharge Information *PRESCRIPTION DRUG MONITORING PROGRAM REVIEWED*: No *COPY OF PRESCRIPTION DRUG MONITORING REPORT IN PATIENT MALLORY: No Instructions: Urinary Tract Infection, Adult, Transient Ischemic Attack, Easy- to-Read Forms: ED Department Discharge Additional Instructions: Rx: Cipro 500mg Continue all your current medications as prescribed. Follow up in clinic next week for recheck. Return to ER if worse at any time. Sepsis Event Note - Focused Exam Vital Signs: Vital Signs Temp Pulse Resp BP Pulse Ox 10/07/19 18:00 98.3 F 64 26 H 149/64 H 100 Date Exam was Performed: 10/07/19 Time Exam was Performed: 19:11 - My Orders Last 24 Hours: My Active Orders 10/07/19 17:48 Head wo Cont [CT] Stat 10/07/19 17:49 NIH Stroke Scale [RC] ASDIRECTED Sodium Chloride 0.9% [Saline Flush] 10 ml FLUSH ASDIRECTED PRN 10/07/19 17:50 Blood Glucose Check, Bedside [RC] ONETIME EKG 12 Lead [EKG Documentation Completion] [RC] STAT Peripheral IV Care [RC] . DIRECTED Chest 1V Frontal [CR] Stat Peripheral IV Insertion Adult [OM.PC] Stat 10/07/19 18:29 CULTURE URINE [RM] Stat - Assessment/Plan Last 24 Hours: My Active Orders 10/07/19 17:48 Head wo Cont [CT] Stat 10/07/19 17:49 NIH Stroke Scale [RC] ASDIRECTED Sodium Chloride 0.9% [Saline Flush] 10 ml FLUSH ASDIRECTED PRN 10/07/19 17:50 Blood Glucose Check, Bedside [RC] ONETIME EKG 12 Lead [EKG Documentation Completion] [RC] STAT Peripheral IV Care [RC] . DIRECTED Chest 1V Frontal [CR] Stat Peripheral IV Insertion Adult [OM.PC] Stat 10/07/19 18:29 CULTURE URINE [RM] Stat I have read and agree with the documentation that has been completed regarding this visit. By signing this record, I attest that the documentation was completed in my physical presence and is an accurate record of the encounter."
== END 2019-10-07 19:17 | disposition home or self-care (01) ==
LOC: DL.ED 17:28
DX: N39.0 Urinary tract infection, site not specified (principal); I10 Essential (primary) hypertension; E78.00 Pure hypercholesterolemia, unspecified; I25.10 Atherosclerotic heart disease of native coronary artery without angina pectoris; E11.40 Type 2 diabetes mellitus with diabetic neuropathy, unspecified; E66.9 Obesity, unspecified; Z68.31 Body mass index [BMI] 31.0-31.9, adult; Z88.0 Allergy status to penicillin; Z88.8 Allergy status to other drugs, medicaments and biological substances; Z79.4 Long term (current) use of insulin; Z79.82 Long term (current) use of aspirin; Z79.899 Other long term (current) drug therapy; Z88.5 Allergy status to narcotic agent
CPT/HCPCS: 36415; 70450; 71045; 80053; 80305; 81001; 82962; 84484; 85025; 85610; 85730; 87086; 87088; 87186; 93005; 93010; 99284; 99285; A9270; G0480

== ENCOUNTER 2019-11-24 09:48 | Emergency (ER) | payer MEDICARE, OTHER ==
--- NOTE | 2019-11-24 10:22 | EDM.PDOC ---
<Melchor Guardado - Last Filed: 11/24/19 11:57> ED HPI GENERAL MEDICAL PROBLEM - General Chief Complaint: Neurological Problem Stated Complaint: LEFT SIDE WEAKNESS Time Seen by Provider: 11/24/19 10:19 Source of Information: Reports: Patient, RN, RN Notes Reviewed History Limitations: Reports: No Limitations - History of Present Illness INITIAL COMMENTS - FREE TEXT/NARRATIVE: Kaykay is brought into the ED by her daughter Kaykay for complaints of left arm weakness and slight left facial drooping, had same symptoms 3 days ago they resolved, then this am at 0800 while eating breakfast she lost control of her left arm, upon arrival to the ED symptoms subsided. Patient was in for same complaint last month and was found to have a UTI. She states today that she still as symptoms of a UTI and that it has not resolved. Onset: Today Location: Reports: Upper Extremity, Left, Lower Extremity, Left Severity: Mild Associated Symptoms: Reports: Weakness. Denies: Confusion, Fever/Chills, Headaches, Nausea/Vomiting, Shortness of Breath, Syncope - Related Data Allergies Allergy/AdvReac Type Severity Reaction Status Date / Time gemfibrozil [From Lopid] Allergy Cannot Verified 12/05/18 14:50 Remember Penicillins Allergy Rash Verified 12/05/18 14:50 propranolol HCl Allergy Cannot Verified 12/05/18 14:50 [From Inderal LA] Remember codeine AdvReac Irritabilit Verified 12/05/18 14:50 y metformin AdvReac Shaking Verified 12/05/18 14:50 Home Meds: Home Meds Insulin Aspart [NovoLOG] 20 unit SQ TID 09/21/14 [History] Metoprolol Succinate [Toprol XL] 75 mg PO BID 09/21/14 [History] Aspirin [Lo-Dose Aspirin EC] 81 mg PO DAILY 11/17/18 [History] Clopidogrel [Plavix] 75 mg PO DAILY 11/17/18 [History] Ergocalciferol (Vitamin D2) [Vitamin D2] 50,000 unit PO WEEKLY 11/17/18 [History ] Furosemide 40 mg PO DAILY 11/17/18 [History] Oxybutynin Chloride [Ditropan Xl] 20 mg PO DAILY 11/17/18 [History] Sodium Bicarbonate 650 mg PO BID 11/17/18 [History] atorvaSTATin [Lipitor] 20 mg PO BEDTIME 11/17/18 [History] Past Medical History HEENT History: Reports: Impaired Vision Other HEENT History: wears glasses Cardiovascular History: Reports: CAD, High Cholesterol, Hypertension, [place], Stents Respiratory History: Reports: None Gastrointestinal History: Reports: Chronic Constipation Genitourinary History: Reports: UTI, Recurrent 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: Musculoskeletal History: Reports: Osteoarthritis Neurological History: Reports: Neuropathy, Diabetic Psychiatric History: Reports: None Endocrine/Metabolic History: Reports: Diabetes, Type II, Obesity/BMI 30+ Hematologic History: Reports: Anemia Immunologic History: Reports: None Oncologic (Cancer) History: Reports: None Dermatologic History: Reports: None - Infectious Disease History Infectious Disease History: Reports: None - Past Surgical History HEENT Surgical History: Reports: Cataract Surgery Cardiovascular Surgical History: Reports: Coronary Artery Bypass GI Surgical History: Reports: Hernia Repair/Other Female Surgical History: Reports: Other (See Below) Other Female Surgeries/Procedures: bladder surgery Social & Family History - Family History Family Medical History: Noncontributory - Caffeine Use Caffeine Use: Reports: None - Living Situation & Occupation Living situation: Reports: Occupation: Retired ED ROS GENERAL - Review of Systems Review Of Systems: See Below Constitutional: Reports: Weakness. Denies: Fever, Chills HEENT: Reports: No Symptoms Respiratory: Reports: No Symptoms Cardiovascular: Reports: No Symptoms Endocrine: Reports: No Symptoms GI/Abdominal: Reports: No Symptoms : Reports: No Symptoms Musculoskeletal: Reports: No Symptoms Skin: Reports: No Symptoms Neurological: Reports: Numbness, Tingling (left side), Weakness (left sided). Denies: Confusion, Dizziness, Syncope Psychiatric: Reports: No Symptoms Hematologic/Lymphatic: Reports: No Symptoms Immunologic: Reports: No Symptoms ED EXAM, NEURO - Physical Exam Exam: See Below Exam Limited By: No Limitations General Appearance: Alert, WD/WN, No Apparent Distress Eye Exam: Bilateral Eye: EOMI, Normal Inspection, PERRL Ears: Normal External Exam, Normal Canal, Hearing Grossly Normal, Normal TMs Nose: Normal Inspection, Normal Mucosa, No Blood Throat/Mouth: Normal Inspection, Normal Lips, Normal Teeth, Normal Gums, Normal Oropharynx, Normal Voice, No Airway Compromise Head Exam: Atraumatic, Normocephalic Neck: Normal Inspection, Supple, Non-Tender, Full Range of Motion Respiratory/Chest: No Respiratory Distress, Lungs Clear, Normal Breath Sounds, No Accessory Muscle Use, Chest Non-Tender Cardiovascular: Normal Peripheral Pulses, Regular Rate, Rhythm, No Edema, No Gallop, No JVD, No Murmur, No Rub GI/Abdominal: Normal Bowel Sounds, Soft, Non-Tender, No Organomegaly, No Distention, No Abnormal Bruit, No Mass (Female) Exam: Deferred Rectal (Female) Exam: Deferred Neurological: Alert, Normal Mood/Affect, Normal Dorsiflexion, CN II-XII Intact, Normal Plantar Flexion, Normal Gait, Normal Reflexes, No Motor/Sensory Deficits , Oriented x 3 Extremities: Normal Inspection, Normal Range of Motion, Non-Tender, No Pedal Edema, Normal Capillary Refill Psychiatric: Normal Affect, Normal Mood Skin Exam: Warm, Dry, Intact, Normal Color, No Rash Course - Vital Signs Last Recorded V/S: Last Vital Signs Temp 36.9 C 11/24/19 10:11 Pulse 58 L 11/24/19 10:11 Resp 18 11/24/19 10:11 BP 150/59 H 11/24/19 10:11 Pulse Ox 100 11/24/19 10:11 - Orders/Labs/Meds Orders: Active Orders 24 hr Category Date Time Status EKG Documentation Completion [RC] URGENT Care 11/24/19 09:53 Active CULTURE URINE [RM] Urgent Lab 11/24/19 11:38 Received Labs: Laboratory Tests 11/24/19 11/24/19 11/24/19 Range/Units 09:57 09:57 10:06 WBC 8.0 (5.0-10.0) 10^3/uL RBC 3.79 L (4.2-5.4) 10^6/uL Hgb 10.6 L (12.0-16.0) g/dL Hct 33.1 L (37.0-47.0) % MCV 87.3 (80-100) fL MCH 28.0 (27.0-34.0) pg MCHC 32.0 L (33.0-35.0) g/dL Plt Count 378 (150-450) 10^3/uL Neut % (Auto) 48.9 (42.2-75.2) % Lymph % (Auto) 34.0 (20.5-50.1) % [place] % (Auto) 10.4 H (2-8) % Eos % (Auto) 5.9 H (1.0-3.0) % Baso % (Auto) 0.8 (0.0-1.0) % Sodium 136 (135-145) mmol/L Potassium 4.0 (3.6-5.0) mmol/L Chloride 107 (101-111) mmol/L Carbon Dioxide 22.0 (21.0-31.0) mmol/L Anion Gap 11.0 BUN 28 H (7-18) mg/dL Creatinine 1.1 (0.6-1.3) mg/dL Est Cr Clr Drug Dosing TNP Estimated GFR (MDRD) 48 BUN/Creatinine Ratio 25.45 Glucose 120 H (74-105) mg/dL POC Glucose 118 H (83-110) mg/dl Calcium 8.9 (8.4-10.2) mg/dl Total Bilirubin 0.6 (0.2-1.0) mg/dL AST 11 (10-42) IU/L ALT 9 L (10-60) IU/L Alkaline Phosphatase 79 (42-121) IU/L Troponin I 0.02 (0.00-0.02) ng/ml Total Protein 7.0 (6.7-8.2) g/dl Albumin 3.1 L (3.2-5.5) g/dl Globulin 3.9 Albumin/Globulin Ratio 0.79 Urine Color (YELLOW) Urine Appearance (CLEAR) Urine pH (5.0-9.0) Ur Specific [place] (1.005-1.030) Urine Protein (NEGATIVE) Urine Glucose (UA) (NEGATIVE) Urine Ketones (NEGATIVE) Urine Occult Blood (NEGATIVE) Urine Nitrite (NEGATIVE) Urine Bilirubin (NEGATIVE) Urine Urobilinogen (0.2-1.0) mg/dL Ur Leukocyte Esterase (NEGATIVE) Urine RBC /HPF Urine WBC (0-5/HPF) /HPF Ur Epithelial Cells (NOT SEEN) /HPF Amorphous Sediment (NOT SEEN) /HPF Urine Bacteria (0-FEW/HPF) /HPF Urine Mucus (NOT SEEN) /LPF 11/24/19 Range/Units 11:38 WBC (5.0-10.0) 10^3/uL RBC (4.2-5.4) 10^6/uL Hgb (12.0-16.0) g/dL Hct (37.0-47.0) % MCV (80-100) fL MCH (27.0-34.0) pg MCHC (33.0-35.0) g/dL Plt Count (150-450) 10^3/uL Neut % (Auto) (42.2-75.2) % Lymph % (Auto) (20.5-50.1) % [place] % (Auto) (2-8) % Eos % (Auto) (1.0-3.0) % Baso % (Auto) (0.0-1.0) % Sodium (135-145) mmol/L Potassium (3.6-5.0) mmol/L Chloride (101-111) mmol/L Carbon Dioxide (21.0-31.0) mmol/L Anion Gap BUN (7-18) mg/dL Creatinine (0.6-1.3) mg/dL Est Cr Clr Drug Dosing Estimated GFR (MDRD) BUN/Creatinine Ratio Glucose (74-105) mg/dL POC Glucose (83-110) mg/dl Calcium (8.4-10.2) mg/dl Total Bilirubin (0.2-1.0) mg/dL AST (10-42) IU/L ALT (10-60) IU/L Alkaline Phosphatase (42-121) IU/L Troponin I (0.00-0.02) ng/ml Total Protein (6.7-8.2) g/dl Albumin (3.2-5.5) g/dl Globulin Albumin/Globulin Ratio Urine Color Light yellow (YELLOW) Urine Appearance Turbid (CLEAR) Urine pH 5.0 (5.0-9.0) Ur Specific [place] 1.015 (1.005-1.030) Urine Protein >=300 H (NEGATIVE) Urine Glucose (UA) 100 H (NEGATIVE) Urine Ketones Negative (NEGATIVE) Urine Occult Blood Moderate H (NEGATIVE) Urine Nitrite Negative (NEGATIVE) Urine Bilirubin Negative (NEGATIVE) Urine Urobilinogen 0.2 (0.2-1.0) mg/dL Ur Leukocyte Esterase Small H (NEGATIVE) Urine RBC 10-20 H /HPF Urine WBC >100 H (0-5/HPF) /HPF Ur Epithelial Cells Few (NOT SEEN) /HPF Amorphous Sediment Few (NOT SEEN) /HPF Urine Bacteria Many H (0-FEW/HPF) /HPF Urine Mucus Few H (NOT SEEN) /LPF Departure - Departure Time of Disposition: 12:15 Disposition: Home, Self-Care 01 Condition: Good Clinical Impression: UTI (urinary tract infection) Qualifiers: Urinary tract infection type: site unspecified Hematuria presence: without hematuria Qualified Code(s): N39.0 - Urinary tract infection, site not specified - Discharge Information *PRESCRIPTION DRUG MONITORING PROGRAM REVIEWED*: Not Applicable *COPY OF PRESCRIPTION DRUG MONITORING REPORT IN PATIENT MALLORY: Not Applicable Instructions: Altered Mental Status, Urinary Tract Infection, Adult, Dehydration, Elderly, [id number] Forms: ED Department Discharge Additional Instructions: Rx: Keflex 500 mg Take the antibiotic Keflex as directed for urinary tract infection. Increase water intake to stay hydrated and to help with the UTI. Follow-up in clinic next week to have your urine retested to make sure the antibiotic is working or if a new antibiotic is needed at that time. Sepsis Event Note - Focused Exam Vital Signs: Vital Signs Temp Pulse Resp BP Pulse Ox 11/24/19 10:11 36.9 C 58 L 18 150/59 H 100 Date Exam was Performed: 11/24/19 Time Exam was Performed: 11:57 - My Orders Last 24 Hours: My Active Orders 11/24/19 09:53 EKG Documentation Completion [RC] URGENT 11/24/19 11:38 CULTURE URINE [RM] Urgent - Assessment/Plan Last 24 Hours: My Active Orders 11/24/19 09:53 EKG Documentation Completion [RC] URGENT 11/24/19 11:38 CULTURE URINE [RM] Urgent <Neri Logan - Last Filed: 11/24/19 12:09> Course - Re-Assessments/Exams Free Text/Narrative Re-Assessment/Exam: 11/24/19 12:08 I have examined the patient. I have discussed findings and treatment plan with the PA student. I agree with the assessment and plan in the following students note. Sepsis Event Note - Focused Exam Date Exam was Performed: 11/24/19 Time Exam was Performed: 12:08
[2019-11-24 10:23] LABS: CHLORIDE,CL 107 mmol/L (101-111); SODIUM,NA 136 mmol/L (135-145)
[2019-11-24 10:24] VITALS: BP 150/59; PULSE 58
== END 2019-11-24 12:25 | disposition home or self-care (01) ==
LOC: DL.ED 09:48
DX: N39.0 Urinary tract infection, site not specified (principal); I25.10 Atherosclerotic heart disease of native coronary artery without angina pectoris; E78.00 Pure hypercholesterolemia, unspecified; I10 Essential (primary) hypertension; I25.2 Old myocardial infarction; E66.9 Obesity, unspecified; E11.40 Type 2 diabetes mellitus with diabetic neuropathy, unspecified; Z88.8 Allergy status to other drugs, medicaments and biological substances; Z88.0 Allergy status to penicillin; Z88.5 Allergy status to narcotic agent; Z79.4 Long term (current) use of insulin; Z79.899 Other long term (current) drug therapy; Z79.82 Long term (current) use of aspirin; Z79.02 Long term (current) use of antithrombotics/antiplatelets; Z95.5 Presence of coronary angioplasty implant and graft; Z68.31 Body mass index [BMI] 31.0-31.9, adult; Z95.1 Presence of aortocoronary bypass graft; Z87.440 Personal history of urinary (tract) infections
CPT/HCPCS: 36415; 80053; 81001; 82962; 84484; 85025; 87086; 93005; 99283; 99285-25

== ENCOUNTER 2020-05-05 15:25 | Emergency (ER) | payer MEDICARE, OTHER ==
[2020-05-05 15:43] VITALS: BP 130/64; PULSE 58
--- NOTE | 2020-05-05 16:05 | EDM.PDOC ---
ED HPI GENERAL MEDICAL PROBLEM - General Chief Complaint: Genitourinary Problem Stated Complaint: UTI/BACK PAIN Time Seen by Provider: 05/05/20 15:45 Source of Information: Reports: Patient History Limitations: Reports: No Limitations - History of Present Illness INITIAL COMMENTS - FREE TEXT/NARRATIVE: This 74 yo female patient reports to the ED with a 2 week history of right sided back pain that has been getting worse. The patient has a history of pylonephritis and frequent urinary tract infections. The patient reported to the [facility] due to her UTI symptoms. The patient was sent to the ED for continued evaluation and treatment. Duration: Week(s):, Constant, Getting Worse Location: Reports: Back (right flank) Quality: Reports: Ache, Dull Severity: Moderate Improves with: Reports: None Worsens with: Reports: None Context: Reports: Other Associated Symptoms: Reports: No Other Symptoms Right Upper Back Pain Score (Numeric/FACES): 8 - Related Data Allergies Allergy/AdvReac Type Severity Reaction Status Date / Time gemfibrozil [From Lopid] Allergy Cannot Verified 05/05/20 15:43 Remember Penicillins Allergy Rash Verified 05/05/20 15:43 propranolol HCl Allergy Cannot Verified 05/05/20 15:43 [From Inderal LA] Remember codeine AdvReac Irritabilit Verified 05/05/20 15:43 y metformin AdvReac Shaking Verified 05/05/20 15:43 Home Meds: Home Meds Insulin Aspart [NovoLOG] 20 unit SQ TID 09/21/14 [History] Metoprolol Succinate [Toprol XL] 75 mg PO BID 09/21/14 [History] Aspirin [Lo-Dose Aspirin EC] 81 mg PO DAILY 11/17/18 [History] Clopidogrel [Plavix] 75 mg PO DAILY 11/17/18 [History] Ergocalciferol (Vitamin D2) [Vitamin D2] 50,000 unit PO WEEKLY 11/17/18 [History] Furosemide 40 mg PO DAILY 11/17/18 [History] Oxybutynin Chloride [Ditropan Xl] 20 mg PO DAILY 11/17/18 [History] Sodium Bicarbonate 650 mg PO BID 11/17/18 [History] atorvaSTATin [Lipitor] 20 mg PO BEDTIME 11/17/18 [History] Past Medical History HEENT History: Reports: Impaired Vision Other HEENT History: wears glasses Cardiovascular History: Reports: CAD, High Cholesterol, Hypertension, [place], Stents Respiratory History: Reports: None Gastrointestinal History: Reports: Chronic Constipation Genitourinary History: Reports: UTI, 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: Musculoskeletal History: Reports: Osteoarthritis Neurological History: Reports: Neuropathy, Diabetic Psychiatric History: Reports: None Endocrine/Metabolic History: Reports: Diabetes, Type II, Obesity/BMI 30+ Hematologic History: Reports: Anemia Immunologic History: Reports: None Oncologic (Cancer) History: Reports: None Dermatologic History: Reports: None - Infectious Disease History Infectious Disease History: Reports: None - Past Surgical History HEENT Surgical History: Reports: Cataract Surgery Cardiovascular Surgical History: Reports: Coronary Artery Bypass GI Surgical History: Reports: Hernia Repair/Other Female Surgical History: Reports: Other (See Below) Other Female Surgeries/Procedures: bladder surgery Social & Family History - Family History Family Medical History: Noncontributory - Tobacco Use Smoking Status *Q: Never Smoker Second Hand Smoke Exposure: No - Caffeine Use Caffeine Use: Reports: None - Recreational Drug Use Recreational Drug Use: No - Living Situation & Occupation Living situation: Reports: Occupation: Retired ED ROS GENERAL - Review of Systems Review Of Systems: Comprehensive ROS is negative, except as noted in HPI. ED EXAM, RENAL/ - Physical Exam Exam: See Below Exam Limited By: No Limitations General Appearance: WD/WN, Moderate Distress Eye Exam: Bilateral Eye: EOMI, Normal Inspection, PERRL Ears: Normal External Exam, Normal Canal, Hearing Grossly Normal, Normal TMs Nose: Normal Inspection, Normal Mucosa, No Blood Throat/Mouth: Normal Inspection, Normal Lips, Normal Teeth, Normal Gums, Normal Oropharynx, Normal Voice, No Airway Compromise Head: Atraumatic, Normocephalic Neck: Normal Inspection, Supple, Non-Tender, Full Range of Motion Respiratory/Chest: No Respiratory Distress, Lungs Clear, Normal Breath Sounds, No Accessory Muscle Use, Chest Non-Tender Cardiovascular: Normal Peripheral Pulses, Regular Rate, Rhythm, No Edema, No Gallop, No JVD, No Murmur, No Rub GI/Abdominal: Normal Bowel Sounds, Soft, Non-Tender, No Organomegaly, No Distention, No Abnormal Bruit, No Mass (Female) Exam: Deferred Rectal (Female) Exam: Deferred Back Exam: CVA Tenderness (R) Extremities: Normal Inspection, Normal Range of Motion, Non-Tender, Normal Capillary Refill, No Pedal Edema Neurological: Alert, Oriented, CN II-XII Intact, Normal Cognition, Normal Gait, Normal Reflexes, No Motor/Sensory Deficits Psychiatric: Normal Affect, Normal Mood Skin Exam: Warm, Dry, Intact, Normal Color, No Rash Lymphatic: No Adenopathy Course - Vital Signs Last Recorded V/S: Last Vital Signs Temp 36.3 C 05/05/20 15:38 Pulse 58 L 05/05/20 15:38 Resp 16 05/05/20 15:38 BP 130/64 05/05/20 15:38 Pulse Ox 100 05/05/20 15:38 - Orders/Labs/Meds Orders: Active Orders 24 hr Category Date Time Status EKG Documentation Completion [RC] STAT Care 05/05/20 16:51 Active CULTURE BLOOD [BC] Stat Lab 05/05/20 15:50 Received UA RFX YISEL AND CULT IF INDIC [URIN] Urgent Lab 05/05/20 15:59 Ordered Sodium Chloride 0.9% [Normal Saline] 1,000 ml Med 05/05/20 17:45 Ordered IV ASDIRECTED cefTRIAXone [Rocephin] 1 gm Med 05/05/20 17:37 Ordered Sodium Chloride 0.9% [Normal Saline] 50 ml IV ONETIME Medication Orders Ceftriaxone Sodium 1 gm/ (Sodium Chloride) 50 mls @ 100 mls/hr IV ONETIME ONE Stop: 05/05/20 18:06 Sodium Chloride (Normal Saline) 1,000 mls @ 500 mls/hr IV ASDIRECTED [facility] Labs: Laboratory Tests 05/05/20 05/05/20 05/05/20 Range/Units 15:50 15:50 15:50 WBC 15.5 H (5.0-10.0) 10^3/uL RBC 4.31 (4.2-5.4) 10^6/uL Hgb 12.2 D (12.0-16.0) g/dL Hct 36.6 L (37.0-47.0) % MCV 84.9 (80-100) fL MCH 28.3 (27.0-34.0) pg MCHC 33.3 (33.0-35.0) g/dL Plt Count 546 H D (150-450) 10^3/uL Neut % (Auto) 82.2 H (42.2-75.2) % Lymph % (Auto) 12.1 L (20.5-50.1) % [place] % (Auto) 5.5 (2-8) % Eos % (Auto) 0.1 L (1.0-3.0) % Baso % (Auto) 0.1 (0.0-1.0) % Sodium 128 L (136-145) mmol/L Potassium 6.2 H (3.5-5.1) mmol/L Chloride 99 (98-107) mmol/L Carbon Dioxide 12 L (21-32) mmol/L Anion Gap 23.2 H (7-13) mEq/L BUN 133 H (7-18) mg/dL Creatinine 3.41 H (0.55-1.02) mg/dL Est Cr Clr Drug Dosing 11.79 mL/min Estimated GFR (MDRD) 13 BUN/Creatinine Ratio 39.0 (No establ ref range) Glucose 256 H (74-99) mg/dL Lactic Acid 1.4 (0.4-2.0) mmol/L Calcium 9.1 (8.5-10.1) mg/dL Total Bilirubin 0.3 (0.2-1.0) mg/dL AST 9 L (15-37) U/L ALT 11 L (14-59) U/L Alkaline Phosphatase 127 H (46-116) U/L Total Protein 8.7 H (6.4-8.2) g/dL Albumin 2.9 L (3.4-5.0) g/dL Globulin 5.8 Albumin/Globulin Ratio 0.50 Meds: Medications Generic Name Dose Route Start Last Admin Trade Name Freq PRN Reason Stop Dose Admin Ceftriaxone Sodium 1 gm/ 50 mls @ 100 mls/hr 05/05/20 17:37 Sodium Chloride IV 05/05/20 18:06 ONETIME ONE Sodium Chloride 1,000 mls @ 500 mls/hr 05/05/20 17:45 Normal Saline IV ASDIRECTED [facility] Departure - Departure Time of Disposition: 17:43 Disposition: DC/Tfer to Acute Hospital 02 Condition: Serious Clinical Impression: Hyperkalemia, Hyponatremia Acute renal failure (ARF) Qualifiers: Acute renal failure type: unspecified Qualified Code(s): N17.9 - Acute kidney failure, unspecified Urinary tract infection Qualifiers: Urinary tract infection type: site unspecified Hematuria presence: without hematuria Qualified Code(s): N39.0 - Urinary tract infection, site not specified - Discharge Information *PRESCRIPTION DRUG MONITORING PROGRAM REVIEWED*: Not Applicable *COPY OF PRESCRIPTION DRUG MONITORING REPORT IN PATIENT MALLORY: Not Applicable Forms: Interfacility Transfer EMTALA Care Plan Goals: Discussed the patient's history, examination, lab results and treatments with Dr. Naranjo ([facility]). Dr. Naranjo accepted the patient for continued evaluation and further management as an inpatient at [facility] in [place]. The patient will be transported by [facility]. Sepsis Event Note (ED) - Evaluation Sepsis Screening Result: No Definite Risk - Focused Exam Vital Signs: Vital Signs Temp Pulse Resp BP Pulse Ox 05/05/20 15:38 36.3 C 58 L 16 130/64 100 - My Orders Last 24 Hours: My Active Orders 05/05/20 15:50 CULTURE BLOOD [BC] Stat 05/05/20 15:59 UA RFX YISEL AND CULT IF INDIC [URIN] Urgent 05/05/20 16:51 EKG Documentation Completion [RC] STAT 05/05/20 17:37 cefTRIAXone [Rocephin] 1 gm Sodium Chloride 0.9% [Normal Saline] 50 ml IV ONETIME 05/05/20 17:45 Sodium Chloride 0.9% [Normal Saline] 1,000 ml IV ASDIRECTED - Assessment/Plan Last 24 Hours: My Active Orders 05/05/20 15:50 CULTURE BLOOD [BC] Stat 05/05/20 15:59 UA RFX YISEL AND CULT IF INDIC [URIN] Urgent 05/05/20 16:51 EKG Documentation Completion [RC] STAT 05/05/20 17:37 cefTRIAXone [Rocephin] 1 gm Sodium Chloride 0.9% [Normal Saline] 50 ml IV ONETIME 05/05/20 17:45 Sodium Chloride 0.9% [Normal Saline] 1,000 ml IV ASDIRECTED
[2020-05-05 16:21] LABS: ANION GAP 23.2 mEq/L (7-13)
[2020-05-05] MEDS ORDERED: cefTRIAXone 1 GM in Sodium Chloride 0.9% 50 ML IV ONE (17:37)
[2020-05-05] MEDS ORDERED: Sodium Chloride 0.9% 1,000 ML IV SCH (17:45)
== END 2020-05-05 18:32 ==
LOC: DL.ED 15:25
DX: N39.0 Urinary tract infection, site not specified (principal); E87.5 Hyperkalemia; E87.1 Hypo-osmolality and hyponatremia; N17.9 Acute kidney failure, unspecified; I10 Essential (primary) hypertension; E78.00 Pure hypercholesterolemia, unspecified; I25.10 Atherosclerotic heart disease of native coronary artery without angina pectoris; M19.90 Unspecified osteoarthritis, unspecified site; E11.40 Type 2 diabetes mellitus with diabetic neuropathy, unspecified; E66.9 Obesity, unspecified; Z68.25 Body mass index [BMI] 25.0-25.9, adult; Z88.5 Allergy status to narcotic agent; Z88.8 Allergy status to other drugs, medicaments and biological substances; Z88.0 Allergy status to penicillin; Z79.4 Long term (current) use of insulin; Z79.82 Long term (current) use of aspirin; Z79.02 Long term (current) use of antithrombotics/antiplatelets; Z79.899 Other long term (current) drug therapy
CPT/HCPCS: 36415; 80053; 83605; 85025; 87040; 93005; 99283; 99285; J0696; J7030; J7050

== ENCOUNTER 2020-05-23 10:10 | Emergency (ER) | payer MEDICARE, OTHER ==
[2020-05-23 12:15] LABS: ANION GAP 14.8 mEq/L (7-13)
--- NOTE | 2020-05-23 12:57 | EDM.PDOC ---
ED HPI GENERAL MEDICAL PROBLEM - General Chief Complaint: Genitourinary Problem Stated Complaint: INFECTION Time Seen by Provider: 05/23/20 12:45 Source of Information: Reports: Patient History Limitations: Reports: No Limitations - History of Present Illness INITIAL COMMENTS - FREE TEXT/NARRATIVE: This 74 yo female patient reports to the ED with diffuse abdominal pain, vaginal itching/burning and bleeding. The patient was seen for a UTI on 05/05/20 and sent to [facility] for acute renal failure and a UTI. The patient did have a follow-up after discharge and the patient reports that visit went fine. The patient reports she started to notice some diffuse abdominal pain and bleeding that started this morning. The patient does not know where the blood is coming from, but feels the frequent need to urinate. Onset: Today Duration: Constant Location: Reports: Abdomen Quality: Reports: Ache, Dull Severity: Moderate Improves with: Reports: None Worsens with: Reports: None Context: Reports: Other Associated Symptoms: Reports: No Other Symptoms Vaginal Pain Score (Numeric/FACES): 7 - Related Data Allergies Allergy/AdvReac Type Severity Reaction Status Date / Time gemfibrozil [From Lopid] Allergy Cannot Verified 05/23/20 10:33 Remember Penicillins Allergy Rash Verified 05/23/20 10:33 propranolol HCl Allergy Cannot Verified 05/23/20 10:33 [From Inderal LA] Remember codeine AdvReac Irritabilit Verified 05/23/20 10:33 y metformin AdvReac Shaking Verified 05/23/20 10:33 Home Meds: Home Meds Insulin Aspart [NovoLOG] 20 unit SQ TID 09/21/14 [History] Metoprolol Succinate [Toprol XL] 75 mg PO BID 09/21/14 [History] Aspirin [Lo-Dose Aspirin EC] 81 mg PO DAILY 11/17/18 [History] Clopidogrel [Plavix] 75 mg PO DAILY 11/17/18 [History] Ergocalciferol (Vitamin D2) [Vitamin D2] 50,000 unit PO WEEKLY 11/17/18 [History] Furosemide 40 mg PO DAILY 11/17/18 [History] Oxybutynin Chloride [Ditropan Xl] 20 mg PO DAILY 11/17/18 [History] Sodium Bicarbonate 650 mg PO BID 11/17/18 [History] atorvaSTATin [Lipitor] 20 mg PO BEDTIME 11/17/18 [History] Past Medical History HEENT History: Reports: Impaired Vision Other HEENT History: wears glasses Cardiovascular History: Reports: CAD, High Cholesterol, Hypertension, [place], Stents Respiratory History: Reports: None Gastrointestinal History: Reports: Chronic Constipation Genitourinary History: Reports: UTI, Recurrent 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: Musculoskeletal History: Reports: Osteoarthritis Neurological History: Reports: Neuropathy, Diabetic Psychiatric History: Reports: None Endocrine/Metabolic History: Reports: Diabetes, Type II, Obesity/BMI 30+ Hematologic History: Reports: Anemia Immunologic History: Reports: None Oncologic (Cancer) History: Reports: None Dermatologic History: Reports: None - Infectious Disease History Infectious Disease History: Reports: None - Past Surgical History Head Surgeries/Procedures: Reports: None HEENT Surgical History: Reports: Cataract Surgery Cardiovascular Surgical History: Reports: Coronary Artery Bypass GI Surgical History: Reports: Hernia Repair/Other Female Surgical History: Reports: Other (See Below) Other Female Surgeries/Procedures: bladder surgery Social & Family History - Family History Family Medical History: Noncontributory - Tobacco Use Smoking Status *Q: Never Smoker - Caffeine Use Caffeine Use: Reports: Soda - Recreational Drug Use Recreational Drug Use: No - Living Situation & Occupation Living situation: Reports: Occupation: Retired ED ROS GENERAL - Review of Systems Review Of Systems: Comprehensive ROS is negative, except as noted in HPI. ED EXAM, GI/ABD - Physical Exam Exam: See Below Exam Limited By: No Limitations General Appearance: Alert, WD/WN, Mild Distress Eyes: Bilateral: Normal Appearance, EOMI Ears: Normal External Exam, Normal Canal, Hearing Grossly Normal, Normal TMs Nose: Normal Inspection, Normal Mucosa, No Blood Throat/Mouth: Normal Inspection, Normal Lips, Normal Teeth, Normal Gums, Normal Oropharynx, Normal Voice, No Airway Compromise Head: Atraumatic, Normocephalic Neck: Normal Inspection, Supple, Non-Tender, Full Range of Motion Respiratory/Chest: No Respiratory Distress, Lungs Clear, Normal Breath Sounds, No Accessory Muscle Use, Chest Non-Tender Cardiovascular: Normal Peripheral Pulses, Regular Rate, Rhythm, No Edema, No Gallop, No JVD, No Murmur, No Rub GI/Abdominal Exam: Normal Bowel Sounds, Soft, No Organomegaly, No Distention, No Abnormal Bruit, No Mass, Pelvis Stable, Tender (diffuse) Rectal (Female) Exam: Normal Rectal Tone, Heme + Stool, Hemorrhoids Back Exam: Normal Inspection, Full Range of Motion, NT Extremities: Normal Inspection, Normal Range of Motion, Non-Tender, Normal Capillary Refill, No Pedal Edema Neurological: Alert, Oriented, CN II-XII Intact, Normal Cognition, Normal Gait, Normal Reflexes, No Motor/Sensory Deficits Psychiatric: Normal Affect, Normal Mood Skin Exam: Warm, Dry, Intact, Normal Color, No Rash Lymphatic: No Adenopathy Course - Vital Signs Last Recorded V/S: Last Vital Signs Temp 36.0 C L 05/23/20 10:26 Pulse 57 L 05/23/20 10:26 Resp 16 05/23/20 10:26 BP 115/61 05/23/20 10:26 Pulse Ox 100 05/23/20 10:26 - Orders/Labs/Meds Orders: Active Orders 24 hr Category Date Time Status UA RFX YISEL AND CULT IF INDIC [URIN] Stat Lab 05/23/20 10:47 Ordered Labs: Laboratory Tests 05/23/20 05/23/20 Range/Units 11:50 11:50 WBC 7.7 (5.0-10.0) 10^3/uL RBC 3.05 L (4.2-5.4) 10^6/uL Hgb 8.5 L D (12.0-16.0) g/dL Hct 27.1 L (37.0-47.0) % MCV 88.9 D (80-100) fL MCH 27.9 (27.0-34.0) pg MCHC 31.4 L (33.0-35.0) g/dL Plt Count 404 D (150-450) 10^3/uL Neut % (Auto) 56.0 (42.2-75.2) % Lymph % (Auto) 27.8 (20.5-50.1) % [place] % (Auto) 11.1 H (2-8) % Eos % (Auto) 4.3 H (1.0-3.0) % Baso % (Auto) 0.8 (0.0-1.0) % Sodium 132 L (136-145) mmol/L Potassium 4.8 (3.5-5.1) mmol/L Chloride 102 (98-107) mmol/L Carbon Dioxide 20 L (21-32) mmol/L Anion Gap 14.8 H (7-13) mEq/L BUN 45 H D (7-18) mg/dL Creatinine 2.30 H (0.55-1.02) mg/dL Est Cr Clr Drug Dosing 16.71 mL/min Estimated GFR (MDRD) 21 BUN/Creatinine Ratio 19.6 (No establ ref range) Glucose 108 H (74-99) mg/dL Calcium 8.2 L (8.5-10.1) mg/dL Total Bilirubin 0.3 (0.2-1.0) mg/dL AST 11 L (15-37) U/L ALT 10 L (14-59) U/L Alkaline Phosphatase 123 H (46-116) U/L Total Protein 6.5 (6.4-8.2) g/dL Albumin 2.2 L (3.4-5.0) g/dL Globulin 4.3 Albumin/Globulin Ratio 0.51 Departure - Departure Time of Disposition: 17:48 Disposition: DC/Tfer to [facility] 02 Condition: Fair Clinical Impression: Gross hematuria Anemia Qualifiers: Anemia type: unspecified type Qualified Code(s): D64.9 - Anemia, unspecified - Discharge Information *PRESCRIPTION DRUG MONITORING PROGRAM REVIEWED*: Not Applicable *COPY OF PRESCRIPTION DRUG MONITORING REPORT IN PATIENT MALLORY: Not Applicable Forms: Interfacility Transfer EMTALA Care Plan Goals: Discussed the patient's history, examination, lab and treatments with Dr. Lundy. Dr. Lundy accepted the patient for continued evaluation and further management as an observation patient at [facility] in [place]. The patient will be transported by [facility]. Sepsis Event Note (ED) - Evaluation Sepsis Screening Result: No Definite Risk - Focused Exam Vital Signs: Vital Signs Temp Pulse Resp BP Pulse Ox 05/23/20 10:26 36.0 C L 57 L 16 115/61 100 - My Orders Last 24 Hours: My Active Orders 05/23/20 10:47 UA RFX YISEL AND CULT IF INDIC [URIN] Stat - Assessment/Plan Last 24 Hours: My Active Orders 05/23/20 10:47 UA RFX YISEL AND CULT IF INDIC [URIN] Stat
[2020-05-23 17:50] VITALS: BP 151/88; PULSE 79
== END 2020-05-23 18:25 ==
LOC: DL.ED 10:10
DX: D64.9 Anemia, unspecified (principal); R31.0 Gross hematuria; I25.10 Atherosclerotic heart disease of native coronary artery without angina pectoris; E78.00 Pure hypercholesterolemia, unspecified; I10 Essential (primary) hypertension; I25.2 Old myocardial infarction; Z95.5 Presence of coronary angioplasty implant and graft; E11.40 Type 2 diabetes mellitus with diabetic neuropathy, unspecified; M19.90 Unspecified osteoarthritis, unspecified site; E66.9 Obesity, unspecified; Z68.27 Body mass index [BMI] 27.0-27.9, adult; Z88.8 Allergy status to other drugs, medicaments and biological substances; Z88.0 Allergy status to penicillin; Z88.5 Allergy status to narcotic agent; Z79.4 Long term (current) use of insulin; Z79.82 Long term (current) use of aspirin; Z79.02 Long term (current) use of antithrombotics/antiplatelets
CPT/HCPCS: 36415; 80053; 81001; 82272; 85025; 87086; 99284

== ENCOUNTER 2020-08-13 08:52 | Emergency (ER) | payer MEDICARE, OTHER ==
[2020-08-13 09:22] VITALS: BP 158/69; PULSE 66
--- NOTE | 2020-08-13 09:44 | EDM.PDOC ---
ED HPI GENERAL MEDICAL PROBLEM - General Chief Complaint: Genitourinary Problem Stated Complaint: IRRITATION AFTER PROCEDURE 08/09/20 Time Seen by Provider: 08/13/20 09:25 Source of Information: Reports: Patient, Old Records, RN, RN Notes Reviewed History Limitations: Reports: No Limitations - History of Present Illness INITIAL COMMENTS - FREE TEXT/NARRATIVE: Pt had nephrostomy tube place left side two days ago in [place]. She states that she and her daughter are concerned that the right kidney is not making urine because there wasn't much in the Lu catheter this morning. In the ER now the Lu is draining some clear yellow urine but not as much as the nephrostomy, which contains dark nori urine. Denies fever or chills. Was COVID tested 2 weeks ago and was negative and denies any cough, sob, nausea, vomiting , diarrhea, or malaise. Onset: Today Location: Reports: Other (Urinary) Quality: Reports: Other (Denies pain) Associated Symptoms: Reports: No Other Symptoms - Related Data Allergies Allergy/AdvReac Type Severity Reaction Status Date / Time gemfibrozil [From Lopid] Allergy Cannot Verified 08/13/20 09:23 Remember Penicillins Allergy Rash Verified 08/13/20 09:23 propranolol HCl Allergy Cannot Verified 08/13/20 09:23 [From Inderal LA] Remember codeine AdvReac Irritabilit Verified 08/13/20 09:23 y metformin AdvReac Shaking Verified 08/13/20 09:23 Home Meds: Home Meds Insulin Aspart [NovoLOG] 20 unit SQ TID 09/21/14 [History] Metoprolol Succinate [Toprol XL] 75 mg PO BID 09/21/14 [History] Aspirin [Lo-Dose Aspirin EC] 81 mg PO DAILY 11/17/18 [History] Clopidogrel [Plavix] 75 mg PO DAILY 11/17/18 [History] Ergocalciferol (Vitamin D2) [Vitamin D2] 50,000 unit PO WEEKLY 11/17/18 [History] Furosemide 40 mg PO DAILY 11/17/18 [History] Oxybutynin Chloride [Ditropan Xl] 20 mg PO DAILY 11/17/18 [History] Sodium Bicarbonate 650 mg PO BID 11/17/18 [History] atorvaSTATin [Lipitor] 20 mg PO BEDTIME 11/17/18 [History] Past Medical History HEENT History: Reports: Impaired Vision Other HEENT History: wears glasses Cardiovascular History: Reports: CAD, High Cholesterol, Hypertension, [place], Stents Respiratory History: Reports: None Gastrointestinal History: Reports: Chronic Constipation Genitourinary History: Reports: UTI, Recurrent 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: Musculoskeletal History: Reports: Osteoarthritis Neurological History: Reports: Neuropathy, Diabetic Psychiatric History: Reports: None Endocrine/Metabolic History: Reports: Diabetes, Type II, Obesity/BMI 30+ Hematologic History: Reports: Anemia Immunologic History: Reports: None Oncologic (Cancer) History: Reports: None Dermatologic History: Reports: None - Infectious Disease History Infectious Disease History: Reports: None - Past Surgical History Head Surgeries/Procedures: Reports: None HEENT Surgical History: Reports: Cataract Surgery Cardiovascular Surgical History: Reports: Coronary Artery Bypass GI Surgical History: Reports: Hernia Repair/Other Female Surgical History: Reports: Other (See Below) Other Female Surgeries/Procedures: bladder surgery Social & Family History - Family History Family Medical History: Noncontributory - Tobacco Use Tobacco Use Status *Q: Never Tobacco User - Caffeine Use Caffeine Use: Reports: Soda - Recreational Drug Use Recreational Drug Use: No - Living Situation & Occupation Living situation: Reports: Occupation: Retired ED ROS GENERAL - Review of Systems Review Of Systems: Comprehensive ROS is negative, except as noted in HPI. ED EXAM, RENAL/ - Physical Exam Exam: See Below Exam Limited By: No Limitations General Appearance: Alert, WD/WN, No Apparent Distress Head: Atraumatic, Normocephalic Neck: Normal Inspection Respiratory/Chest: No Respiratory Distress, Lungs Clear, Normal Breath Sounds, No Accessory Muscle Use, Chest Non-Tender Cardiovascular: Regular Rate, Rhythm GI/Abdominal: Normal Bowel Sounds, Soft, Non-Tender, No Organomegaly, No Distention Back Exam: Normal Inspection, Other (Left nephrostomy tube with dark nori urine in bag, no visible blood, not cloudy). No: CVA Tenderness (L), CVA Tenderness (R) Extremities: Normal Inspection Neurological: Alert, Oriented, No Motor/Sensory Deficits Psychiatric: Normal Mood Skin Exam: Warm, Dry, Intact, Normal Color, No Rash Course - Vital Signs Last Recorded V/S: Last Vital Signs Temp 98.3 F 08/13/20 09:21 Pulse 66 08/13/20 09:21 Resp 14 08/13/20 09:21 BP 158/69 H 08/13/20 09:21 Pulse Ox 97 08/13/20 09:21 - Orders/Labs/Meds Orders: Active Orders 24 hr Category Date Time Status CULTURE URINE [RM] Stat Lab 08/13/20 09:40 Received Labs: Laboratory Tests 08/13/20 08/13/20 08/13/20 Range/Units 09:40 09:47 09:47 WBC 10.8 H (5.0-10.0) 10^3/uL RBC 3.73 L (4.2-5.4) 10^6/uL Hgb 10.4 L D (12.0-16.0) g/dL Hct 32.4 L (37.0-47.0) % MCV 86.9 (80-100) fL MCH 27.9 (27.0-34.0) pg MCHC 32.1 L (33.0-35.0) g/dL Plt Count 383 (150-450) 10^3/uL Neut % (Auto) 69.2 (42.2-75.2) % Lymph % (Auto) 17.4 L (20.5-50.1) % Cross % (Auto) 9.6 H (2-8) % Eos % (Auto) 3.6 H (1.0-3.0) % Baso % (Auto) 0.2 (0.0-1.0) % Sodium 134 L (136-145) mmol/L Potassium 3.1 L D (3.5-5.1) mmol/L Chloride 95 L (98-107) mmol/L Carbon Dioxide 33 H D (21-32) mmol/L Anion Gap 9.1 (7-13) mEq/L BUN 49 H (7-18) mg/dL Creatinine 2.02 H (0.55-1.02) mg/dL Est Cr Clr Drug Dosing 19.91 mL/min Estimated GFR (MDRD) 24 Glucose 202 H (74-99) mg/dL Calcium 9.1 (8.5-10.1) mg/dL Urine Color Nori (YELLOW) Urine Appearance Turbid (CLEAR) Urine pH 5.5 (5.0-9.0) Ur Specific [place]au 1.025 (1.005-1.030) Urine Protein >=300 H (NEGATIVE) Urine Glucose (UA) Negative (NEGATIVE) Urine Ketones Trace H (NEGATIVE) Urine Occult Blood Large H (NEGATIVE) Urine Nitrite Positive H (NEGATIVE) Urine Bilirubin Small H (NEGATIVE) Urine Urobilinogen 1.0 (0.2-1.0) mg/dL Ur Leukocyte Esterase Large H (NEGATIVE) Urine RBC Packed H /HPF Urine WBC 20-30 H (0-5/HPF) /HPF Ur Epithelial Cells Moderate H (NOT SEEN) /HPF Amorphous Sediment Moderate H (NOT SEEN) /HPF Urine Bacteria Many H (0-FEW/HPF) /HPF Urine Mucus Few H (NOT SEEN) /LPF Departure - Departure Time of Disposition: 10:29 Disposition: Home, Self-Care 01 Condition: Good Clinical Impression: Encounter for medical screening examination UTI (urinary tract infection) due to urinary indwelling catheter Qualifiers: Indwelling urinary catheter type: nephrostomy catheter Encounter type: initial encounter Qualified Code(s): T83.512A - Infection and inflammatory reaction due to nephrostomy catheter, initial encounter; N39.0 - Urinary tract infection, site not specified - Discharge Information *PRESCRIPTION DRUG MONITORING PROGRAM REVIEWED*: Not Applicable *COPY OF PRESCRIPTION DRUG MONITORING REPORT IN PATIENT MALLORY: Not Applicable Instructions: Urinary Tract Infection, Adult, [id number], Indwelling Urinary Catheter Care, Adult Forms: ED Department Discharge Additional Instructions: Rx: Cipro 500mg Follow up in clinic for urine recheck in 5 to 7 days. Sepsis Event Note (ED) - Evaluation Sepsis Screening Result: No Definite Risk - Focused Exam Vital Signs: Vital Signs Temp Pulse Resp BP Pulse Ox 08/13/20 09:21 98.3 F 66 14 158/69 H 97 - My Orders Last 24 Hours: My Active Orders 08/13/20 09:40 CULTURE URINE [RM] Stat - Assessment/Plan Last 24 Hours: My Active Orders 08/13/20 09:40 CULTURE URINE [RM] Stat
[2020-08-13 10:16] LABS: ANION GAP 9.1 mEq/L (7-13)
== END 2020-08-13 10:34 | disposition home or self-care (01) ==
LOC: DL.ED 08:52
DX: T83.512A Infection and inflammatory reaction due to nephrostomy catheter, initial encounter (principal); N39.0 Urinary tract infection, site not specified; I10 Essential (primary) hypertension; I25.2 Old myocardial infarction; E78.00 Pure hypercholesterolemia, unspecified; E11.40 Type 2 diabetes mellitus with diabetic neuropathy, unspecified; E66.9 Obesity, unspecified; Z88.0 Allergy status to penicillin; Z95.5 Presence of coronary angioplasty implant and graft; Z88.5 Allergy status to narcotic agent; Z88.8 Allergy status to other drugs, medicaments and biological substances; Z79.02 Long term (current) use of antithrombotics/antiplatelets; Z79.82 Long term (current) use of aspirin; Z79.4 Long term (current) use of insulin; Z79.899 Other long term (current) drug therapy; Z68.28 Body mass index [BMI] 28.0-28.9, adult
CPT/HCPCS: 36415; 80048; 81001; 85025; 87086; 87088; 87186; 99283

== ENCOUNTER 2020-12-14 09:59 | Inpatient (IN) | payer MEDICARE, OTHER ==
[2020-12-14] MEDS ORDERED: Acetaminophen 325 MG Tab PO PRN (15:14)
[2020-12-14] MEDS ORDERED: Lactulose Soln 10 GM/15 ML 30 ML UD Cup PO PRN (15:18)
--- NOTE | 2020-12-14 16:12 | PCM.HP ---
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 Pt is currently w/o any complaints apart from chronic constipation. - Related Data Allergies/Adverse Reactions: Allergies Allergy/AdvReac Type Severity Reaction Status Date / Time gemfibrozil [From Lopid] Allergy Cannot Verified 12/14/20 12:30 Remember Penicillins Allergy Rash Verified 12/14/20 12:30 propranolol HCl Allergy Cannot Verified 12/14/20 12:30 [From Inderal LA] Remember codeine AdvReac Irritabilit Verified 12/14/20 12:30 y metformin AdvReac Shaking Verified 12/14/20 12:30 Home Medications: Home Meds Aspirin [Lo-Dose Aspirin EC] 81 mg PO DAILY 11/17/18 [History] Clopidogrel [Plavix] 75 mg PO DAILY 11/17/18 [History] Oxybutynin Chloride [Ditropan Xl] 10 mg PO DAILY 11/17/18 [History] Sodium Bicarbonate 1,300 mg PO BID 11/17/18 [History] Acetaminophen 325 mg PO Q4HR PRN 12/14/20 [History] Ascorbic Acid 500 mg PO DAILY 12/14/20 [History] Brimonidine Tartrate/Timolol [Combigan 0.2%-0.5% Eye Drops] 1 drop EYEBOTH BID 12/14/20 [History] Bumetanide 1 mg PO DAILY 12/14/20 [History] Cholecalciferol (Vitamin D3) [Vitamin D3] 2,000 unit PO DAILY 12/14/20 [History] Furosemide [Lasix] 40 mg PO DAILY 12/14/20 [History] Lactulose 30 ml PO BID PRN 12/14/20 [History] Levofloxacin 500 mg PO .48HR 12/14/20 [History] Omeprazole 20 mg PO DAILY 12/14/20 [History] carvediloL [Carvedilol] 12.5 mg PO BID 12/14/20 [History] oxyCODONE 5 mg PO Q6HR 12/14/20 [History] Past Medical History HEENT History: Reports: Impaired Vision Other HEENT History: wears glasses Cardiovascular History: Reports: CAD, High Cholesterol, Hypertension, [place], Stents Respiratory History: Reports: None Gastrointestinal History: Reports: Chronic Constipation Genitourinary History: Reports: UTI, Recurrent 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: Musculoskeletal History: Reports: Osteoarthritis Neurological History: Reports: Neuropathy, Diabetic Psychiatric History: Reports: None Endocrine/Metabolic History: Reports: Diabetes, Type II, Obesity/BMI 30+ Hematologic History: Reports: Anemia Immunologic History: Reports: None Oncologic (Cancer) History: Reports: None Dermatologic History: Reports: None - Infectious Disease History Infectious Disease History: Reports: None - Past Surgical History Head Surgeries/Procedures: Reports: None HEENT Surgical History: Reports: Cataract Surgery Cardiovascular Surgical History: Reports: Coronary Artery Bypass GI Surgical History: Reports: Hernia Repair/Other Female Surgical History: Reports: Other (See Below) Other Female Surgeries/Procedures: bladder surgery Musculoskeletal Surgical History: Reports: Other (See Below) Other Musculoskeletal Surgeries/Procedures:: carpal tunnel surgery Social & Family History - Family History Family Medical History: No Pertinent Family History - Tobacco Use Tobacco Use Status *Q: Never Tobacco User Second Hand Smoke Exposure: No - Caffeine Use Caffeine Use: Reports: Soda, Tea - Recreational Drug Use Recreational Drug Use: No - Living Situation & Occupation Living situation: Reports: Occupation: Retired H&P Review of Systems - Review of Systems: Review Of Systems: See Below General: Denies: Fever, Chills HEENT: Denies: Headaches Pulmonary: Denies: Shortness of Breath, Wheezing Cardiovascular: Denies: Chest Pain Gastrointestinal: Reports: Constipation. Denies: Abdominal Pain Genitourinary: Denies: Dysuria Musculoskeletal: Denies: Neck Pain Skin: Denies: Jaundice Psychiatric: Denies: Confusion, Depression Neurological: Denies: Dizziness Hematologic/Lymphatic: Reports: Anemia. Denies: Easy Bleeding Exam - Exam Exam: See Below - Vital Signs Vital Signs: Last Vital Signs Temp 97.7 F 12/14/20 15:30 Pulse 64 12/14/20 15:30 Resp 20 12/14/20 15:30 BP 144/67 H 12/14/20 15:30 Pulse Ox 98 12/14/20 15:30 Weight: 160 lb 6.4 oz - Exam Quality Assessment: No: Supplemental Oxygen General: Alert, Oriented, Cooperative HEENT: Other (pale conjuctiva) Neck: Supple Lungs: Clear to Auscultation, Normal Respiratory Effort Cardiovascular: Regular Rate, Regular Rhythm GI/Abdominal Exam: Normal Bowel Sounds, Soft, Non-Tender, Other (mod distended) (Female) Exam: Other (well appearing left nephrostomy site) Back Exam: No: Vertebral Tenderness Extremities: No Pedal Edema Skin: Warm, Dry, Other (dressing clean over left BKA - was just changed - did not open) Neurological: Cranial Nerves Intact Neuro Extensive - Mental Status: Alert, Oriented x3, Normal Mood/Affect Problem List Initiated/Reviewed/Updated: No Orders Last 24hrs: Active Orders 24 hr Category Date Time Status Patient Status [ADT] Routine ADT 12/14/20 15:06 Active Oxygen Therapy [RC] .PRN Care 12/14/20 15:06 Active Up With Assistance [RC] ASDIRECTED Care 12/14/20 15:14 Active VTE/DVT Education [RC] PER UNIT ROUTINE Care 12/14/20 15:06 Active Vital Signs [RC] QSHIFT Care 12/14/20 15:06 Active Wound Care [RC] 08 Care 12/15/20 08:00 Active OT Evaluation and Treatment [CONS] Routine Cons 12/14/20 15:14 Active PT Evaluation and Treatment [CONS] Routine Cons 12/14/20 15:14 Active Heart Healthy Diet [DIET] Diet 12/14/20 Dinner Active BASIC METABOLIC PANEL,BMP [CHEM] AM Lab 12/15/20 05:11 Ordered CBC WITH AUTO DIFF [HEME] AM Lab 12/15/20 05:11 Ordered MAGNESIUM [CHEM] AM Lab 12/15/20 05:11 Ordered PHOSPHORUS [CHEM] AM Lab 12/15/20 05:11 Ordered Acetaminophen [TylenoL] Med 12/14/20 15:14 Ordered 650 mg PO Q4H PRN Ascorbic Acid [Vitamin C] Med 12/15/20 09:00 Ordered 500 mg PO DAILY Aspirin [Halfprin] Med 12/15/20 09:00 Ordered 81 mg PO DAILY Brimonidine Tartrate/Timolol [Combigan 0.2%-0.5% Eye Med 12/14/20 21:00 Ordered Drops] 1 drop EYEBOTH BID Bumetanide [Bumex] Med 12/15/20 09:00 Ordered 1 mg PO DAILY Cholecalciferol (Vitamin D3) [Vitamin D3] Med 12/15/20 09:00 Ordered 2,000 unit PO DAILY Clopidogrel [Plavix] Med 12/15/20 09:00 Ordered 75 mg PO DAILY Heparin Sodium Med 12/14/20 22:00 Ordered 5,000 units SUBCUT Q8HR Lactulose [Lactulose] Med 12/14/20 15:18 Ordered 30 ml PO BID PRN Omeprazole Med 12/15/20 09:00 Ordered 20 mg PO DAILY Oxybutynin Chloride [Ditropan Xl] Med 12/15/20 09:00 Ordered 10 mg PO DAILY Sodium Bicarbonate Med 12/14/20 21:00 Ordered 1,300 mg PO BID carvediloL [Carvedilol] Med 12/14/20 21:00 Ordered 12.5 mg PO BID levoFLOXacin [Levaquin] Med 12/15/20 09:00 Ordered 500 mg PO Q48H oxyCODONE Med 12/14/20 18:00 Ordered 5 mg PO Q6HR Resuscitation Status Routine Resus Stat 12/14/20 15:06 Ordered Assessment/Plan Comment:: #PVD s/p left BKA 3/2 - wound care and follow up per d/c instructions - will examine the leg at tomorrow's dressing change - PT/OT to evaluate and treat debility #possible pneumonia - will finish course of levofloxacin per d/c instructions #RIVAS on CKD4 s/p left nephrostomy - Cr noted rising 2.0 > 2.5 on day prior to discharge - will repeat tomorrow #CAD / chronic systolic CHF / pulm HT / hx SVT / HT - c/w transfer meds PPX - [facility] Full code
[2020-12-14] MEDS: Carvedilol 25 MG Tab PO SCH (17:15)
[2020-12-14] MEDS ORDERED: oxyCODONE 5 MG Tab PO SCH (18:00)
[2020-12-14] MEDS ORDERED: oxyCODONE 5 MG Tab PO PRN (18:09)
[2020-12-14] MEDS: Sodium Bicarbonate 650 MG Tab PO SCH (22:51)
[2020-12-14] MEDS: Acetaminophen 325 MG Tab PO SCH (22:52)
[2020-12-14] MEDS: Heparin Sodium 5,000 Units/ML Vial SUBCUT SCH (22:52)
[2020-12-15] MEDS: Heparin Sodium 5,000 Units/ML Vial SUBCUT SCH ×3 (06:30→21:50)
[2020-12-15] MEDS: Omeprazole 20 MG Cap.CR PO SCH (06:32)
[2020-12-15] MEDS: Acetaminophen 325 MG Tab PO SCH ×3 (06:32→22:05)
[2020-12-15 06:45] LABS: ANION GAP 15.4 mEq/L (7-13)
[2020-12-15] MEDS: Oxybutynin 5 MG Tab.ER PO SCH (09:03)
[2020-12-15] MEDS: Ascorbic Acid 500 MG Tab PO SCH (09:04)
[2020-12-15] MEDS: Bumetanide 1 MG Tab PO SCH (09:04)
[2020-12-15] MEDS: Levofloxacin 500 MG Tab PO SCH (09:04)
[2020-12-15] MEDS: Clopidogrel 75 MG Tab PO SCH (09:04)
[2020-12-15] MEDS: Cholecalciferol (Vitamin D3) 25 MCG Tab PO SCH (09:04)
[2020-12-15] MEDS: Aspirin 81 MG Tab.EC PO SCH (09:05)
[2020-12-15] MEDS: Sodium Bicarbonate 650 MG Tab PO SCH ×2 (09:05→21:50)
[2020-12-15] MEDS: Carvedilol 25 MG Tab PO SCH ×2 (09:05→17:57)
[2020-12-15] MEDS: EYE EYEBOTH SCH ×2 (14:36→21:51)
[2020-12-15] MEDS: TIMOLOL EYEBOTH SCH ×2 (14:36→21:51)
[2020-12-15] MEDS: BRIMONIDINE EYEBOTH SCH ×2 (14:36→21:51)
[2020-12-16] MEDS: Omeprazole 20 MG Cap.CR PO SCH ×2 (04:50→05:00)
[2020-12-16] MEDS: Heparin Sodium 5,000 Units/ML Vial SUBCUT SCH ×4 (04:50→22:34)
[2020-12-16] MEDS: Acetaminophen 325 MG Tab PO SCH ×3 (07:55→22:33)
[2020-12-16] MEDS: Carvedilol 25 MG Tab PO SCH ×2 (07:56→17:23)
[2020-12-16] MEDS: Cholecalciferol (Vitamin D3) 25 MCG Tab PO SCH (08:00)
[2020-12-16] MEDS: Clopidogrel 75 MG Tab PO SCH (08:00)
[2020-12-16] MEDS: Aspirin 81 MG Tab.EC PO SCH (08:00)
[2020-12-16] MEDS: Oxybutynin 5 MG Tab.ER PO SCH (08:00)
[2020-12-16] MEDS: BRIMONIDINE EYEBOTH SCH ×2 (08:01→20:43)
[2020-12-16] MEDS: Sodium Bicarbonate 650 MG Tab PO SCH ×2 (08:01→20:42)
[2020-12-16] MEDS: EYE EYEBOTH SCH ×2 (08:01→20:43)
[2020-12-16] MEDS: Bumetanide 1 MG Tab PO SCH (08:01)
[2020-12-16] MEDS: Ascorbic Acid 500 MG Tab PO SCH (08:01)
[2020-12-16] MEDS: TIMOLOL EYEBOTH SCH ×2 (08:01→20:43)
[2020-12-17] MEDS: Heparin Sodium 5,000 Units/ML Vial SUBCUT SCH ×3 (05:10→22:19)
[2020-12-17] MEDS: Omeprazole 20 MG Cap.CR PO SCH (05:10)
[2020-12-17] MEDS: Acetaminophen 325 MG Tab PO SCH ×3 (05:14→22:07)
[2020-12-17] MEDS: Carvedilol 25 MG Tab PO SCH ×2 (07:59→18:13)
[2020-12-17] MEDS: Levofloxacin 500 MG Tab PO SCH (11:05)
[2020-12-17] MEDS: Aspirin 81 MG Tab.EC PO SCH (11:05)
[2020-12-17] MEDS: Bumetanide 1 MG Tab PO SCH (11:05)
[2020-12-17] MEDS: Clopidogrel 75 MG Tab PO SCH (11:05)
[2020-12-17] MEDS: Ascorbic Acid 500 MG Tab PO SCH (11:06)
[2020-12-17] MEDS: Cholecalciferol (Vitamin D3) 25 MCG Tab PO SCH (11:06)
[2020-12-17] MEDS: Oxybutynin 5 MG Tab.ER PO SCH (11:06)
[2020-12-17] MEDS: BRIMONIDINE EYEBOTH SCH ×2 (11:07→22:18)
[2020-12-17] MEDS: EYE EYEBOTH SCH ×2 (11:07→22:18)
[2020-12-17] MEDS: TIMOLOL EYEBOTH SCH ×2 (11:07→22:18)
[2020-12-17] MEDS ORDERED: Sodium Bicarbonate 650 MG Tab PO ONE (12:30)
[2020-12-17] MEDS: Sodium Bicarbonate 650 MG Tab PO SCH ×2 (12:33→22:07)
[2020-12-18] MEDS: Heparin Sodium 5,000 Units/ML Vial SUBCUT SCH ×3 (06:27→22:58)
[2020-12-18] MEDS: Acetaminophen 325 MG Tab PO SCH ×3 (06:27→22:57)
[2020-12-18] MEDS: Omeprazole 20 MG Cap.CR PO SCH (06:28)
[2020-12-18] MEDS: Carvedilol 25 MG Tab PO SCH ×2 (08:52→17:52)
[2020-12-18] MEDS: Cholecalciferol (Vitamin D3) 25 MCG Tab PO SCH (08:54)
[2020-12-18] MEDS: Clopidogrel 75 MG Tab PO SCH (08:54)
[2020-12-18] MEDS: Aspirin 81 MG Tab.EC PO SCH (08:54)
[2020-12-18] MEDS: Oxybutynin 5 MG Tab.ER PO SCH (08:54)
[2020-12-18] MEDS: Ascorbic Acid 500 MG Tab PO SCH (08:55)
[2020-12-18] MEDS: Bumetanide 1 MG Tab PO SCH (08:55)
[2020-12-18] MEDS: Sodium Bicarbonate 650 MG Tab PO SCH ×2 (08:55→20:12)
[2020-12-18] MEDS: EYE EYEBOTH SCH ×2 (09:21→20:16)
[2020-12-18] MEDS: TIMOLOL EYEBOTH SCH ×2 (09:21→20:16)
[2020-12-18] MEDS: BRIMONIDINE EYEBOTH SCH ×2 (09:21→20:16)
[2020-12-19] MEDS: Acetaminophen 325 MG Tab PO SCH ×4 (06:20→22:10)
[2020-12-19] MEDS: Heparin Sodium 5,000 Units/ML Vial SUBCUT SCH ×4 (06:20→22:10)
[2020-12-19] MEDS: Omeprazole 20 MG Cap.CR PO SCH (06:20)
[2020-12-19] MEDS: Cholecalciferol (Vitamin D3) 25 MCG Tab PO SCH (08:46)
[2020-12-19] MEDS: TIMOLOL EYEBOTH SCH ×2 (08:46→20:48)
[2020-12-19] MEDS: Aspirin 81 MG Tab.EC PO SCH (08:46)
[2020-12-19] MEDS: Clopidogrel 75 MG Tab PO SCH (08:46)
[2020-12-19] MEDS: BRIMONIDINE EYEBOTH SCH ×2 (08:46→20:48)
[2020-12-19] MEDS: EYE EYEBOTH SCH ×2 (08:46→20:48)
[2020-12-19] MEDS: Bumetanide 1 MG Tab PO SCH (08:46)
[2020-12-19] MEDS: Oxybutynin 5 MG Tab.ER PO SCH (08:47)
[2020-12-19] MEDS: Ascorbic Acid 500 MG Tab PO SCH (08:47)
[2020-12-19] MEDS: Carvedilol 25 MG Tab PO SCH ×2 (08:47→17:25)
[2020-12-19] MEDS: Sodium Bicarbonate 650 MG Tab PO SCH ×2 (08:47→20:49)
--- NOTE | 2020-12-19 18:25 | PCM.PN ---
- General Info Date of Service: 12/19/20 Admission Dx/Problem (Free Text): Pt has no complaints. d/w pt at length regarding long-term goals of rehabilitating and eventually walking w/ prosthesis. She states she remains motivated to rehab but wants to do it on an outpatient basis. - Patient Data Vitals - Most Recent: Last Vital Signs Temp 97.3 F 12/19/20 08:05 Pulse 62 12/19/20 17:25 Resp 20 12/19/20 08:05 BP 142/68 H 12/19/20 17:25 Pulse Ox 98 12/19/20 08:05 Weight - Most Recent: 161 lb 6.4 oz I&O - Last 24 Hours: Intake & Output 12/19/20 12/19/20 12/19/20 06:59 14:59 22:59 Intake Total 330 240 300 Output Total 225 250 Balance 105 240 50 Med Orders - Current: Current Medications Acetaminophen (Acetaminophen 325 Mg Tab) 975 mg PO 0600,1400,2200 [facility] Last Admin: 12/19/20 13:12 Dose: 975 mg Documented by: Ascorbic Acid (Ascorbic Acid 500 Mg Tab) 500 mg PO DAILY [facility] Last Admin: 12/19/20 08:47 Dose: 500 mg Documented by: Aspirin (Aspirin 81 Mg Tab.Ec) 81 mg PO DAILY [facility] Last Admin: 12/19/20 08:46 Dose: 81 mg Documented by: Bumetanide (Bumetanide 1 Mg Tab) 1 mg PO DAILY [facility] Last Admin: 12/19/20 08:46 Dose: 1 mg Documented by: Carvedilol (Carvedilol 25 Mg Tab) 12.5 mg PO BIDMEALS [facility] Last Admin: 12/19/20 17:25 Dose: 12.5 mg Documented by: Cholecalciferol (Cholecalciferol (Vitamin D3) 25 Mcg Tab) 50 mcg PO DAILY [facility] Last Admin: 12/19/20 08:46 Dose: 50 mcg Documented by: Clopidogrel Bisulfate (Clopidogrel 75 Mg Tab) 75 mg PO DAILY [facility] Last Admin: 12/19/20 08:46 Dose: 75 mg Documented by: Heparin Sodium (Porcine) (Heparin Sodium 5,000 Units/Ml Vial) 5,000 units SUBCUT Q8HR [facility] Last Admin: 12/19/20 13:12 Dose: 5,000 units Documented by: Lactulose (Lactulose Soln 10 Gm/15 Ml 30 Ml Ud Cup) 20 gm PO BID PRN PRN Reason: Constipation Brimonidine/Timolol [Combigan 0.2%-0.5%] Eye DropOwn Med 1 drop EYEBOTH BID [facility] Last Admin: 12/19/20 08:46 Dose: 1 drop Documented by: Omeprazole (Omeprazole 20 Mg Cap.Cr) 20 mg PO ACBREAKFAST [facility] Last Admin: 12/19/20 06:20 Dose: 20 mg Documented by: Oxybutynin Chloride (Oxybutynin 5 Mg Tab.Er) 10 mg PO DAILY [facility] Last Admin: 12/19/20 08:47 Dose: 10 mg Documented by: Oxycodone HCl (Oxycodone 5 Mg Tab) 2.5 mg PO Q6HR PRN PRN Reason: Pain (severe 7-10) Sodium Bicarbonate (Sodium Bicarbonate 650 Mg Tab) 1,300 mg PO BID [facility] Last Admin: 12/19/20 08:47 Dose: 1,300 mg Documented by: Discontinued Medications Acetaminophen (Acetaminophen 325 Mg Tab) 650 mg PO Q4H PRN PRN Reason: Pain (Mild 1-3)/fever Last Admin: 12/14/20 17:11 Dose: 650 mg Documented by: Acetaminophen (Acetaminophen 325 Mg Tab) 975 mg PO Q8H [facility] Last Admin: 12/16/20 22:33 Dose: 975 mg Documented by: Levofloxacin (Levofloxacin 500 Mg Tab) 500 mg PO Q48H [facility] Stop: 12/17/20 09:01 Last Admin: 12/17/20 11:05 Dose: 500 mg Documented by: Oxycodone HCl (Oxycodone 5 Mg Tab) 5 mg PO Q6HR [facility] Last Admin: 12/14/20 19:32 Dose: Not Given Documented by: Sodium Bicarbonate (Sodium Bicarbonate 650 Mg Tab) 1,300 mg PO ONETIME ONE Stop: 12/17/20 12:31 Last Admin: 12/17/20 12:33 Dose: 1,300 mg Documented by: - Exam Quality Assessment: No: Supplemental Oxygen General: Alert, Oriented, Cooperative HEENT: Pupils Equal, Pupils Reactive Neck: Supple Lungs: Clear to Auscultation, Normal Respiratory Effort Cardiovascular: Regular Rate, Regular Rhythm, No Murmurs GI/Abdominal Exam: Normal Bowel Sounds, Soft, Non-Tender, No Distention Back Exam: Normal Inspection Extremities: No Pedal Edema, Other (s/p left BKA) Skin: Warm, Dry Wound/Incisions: Healing Well Neurological: No New Focal Deficit Psy/Mental Status: Alert, Normal Affect, Normal Mood - Patient Data Result Diagrams: 12/15/20 06:05 12/15/20 06:05 Sepsis Event Note - Evaluation Sepsis Screening Result: No Definite Risk - Focused Exam Vital Signs: Vital Signs Temp Pulse Pulse Resp BP BP Pulse Ox 12/19/20 17:25 62 142/68 H 12/19/20 08:47 60 137/60 12/19/20 08:05 97.3 F 60 20 137/60 98 - Problem List Review Problem List Initiated/Reviewed/Updated: No - Plan Plan:: #PVD s/p left BKA 12/06 - wound care and follow up per d/c instructions - surgical site healing well - pt is requesting d/c home w/ home services and PT #possible pneumonia - completed levofloxacin course as per d/c instructions #RIVAS on CKD4 s/p left nephrostomy - will repeat to re-asses prior to d/c #CAD / chronic systolic CHF / pulm HT / hx SVT / HT - c/w transfer meds PPX - [facility] Full code
[2020-12-20] MEDS: Acetaminophen 325 MG Tab PO SCH ×3 (06:24→21:09)
[2020-12-20] MEDS: Heparin Sodium 5,000 Units/ML Vial SUBCUT SCH ×3 (06:24→21:09)
[2020-12-20] MEDS: Omeprazole 20 MG Cap.CR PO SCH (06:24)
[2020-12-20 06:30] LABS: ANION GAP 14.1 mEq/L (7-13)
[2020-12-20] MEDS: Sodium Bicarbonate 650 MG Tab PO SCH ×2 (08:28→21:08)
[2020-12-20] MEDS: Bumetanide 1 MG Tab PO SCH (08:29)
[2020-12-20] MEDS: Aspirin 81 MG Tab.EC PO SCH (08:29)
[2020-12-20] MEDS: Oxybutynin 5 MG Tab.ER PO SCH (08:29)
[2020-12-20] MEDS: Cholecalciferol (Vitamin D3) 25 MCG Tab PO SCH (08:29)
[2020-12-20] MEDS: Clopidogrel 75 MG Tab PO SCH (08:29)
[2020-12-20] MEDS: TIMOLOL EYEBOTH SCH ×2 (08:30→21:13)
[2020-12-20] MEDS: BRIMONIDINE EYEBOTH SCH ×2 (08:30→21:13)
[2020-12-20] MEDS: EYE EYEBOTH SCH ×2 (08:30→21:13)
[2020-12-20] MEDS: Carvedilol 25 MG Tab PO SCH ×2 (08:31→17:35)
[2020-12-20] MEDS: Ascorbic Acid 500 MG Tab PO SCH (08:39)
[2020-12-21] MEDS ORDERED: Heparin Sodium 5,000 Units/ML Vial SUBCUT ONE (06:00)
[2020-12-21] MEDS ORDERED: Acetaminophen 325 MG Tab PO ONE (06:00)
[2020-12-21] MEDS ORDERED: Omeprazole 20 MG Cap.CR PO ONE (06:00)
[2020-12-21] MEDS: Heparin Sodium 5,000 Units/ML Vial SUBCUT SCH ×3 (06:38→21:14)
[2020-12-21] MEDS: Omeprazole 20 MG Cap.CR PO SCH (06:39)
[2020-12-21] MEDS: Acetaminophen 325 MG Tab PO SCH ×3 (06:39→21:12)
[2020-12-21] MEDS: Cholecalciferol (Vitamin D3) 25 MCG Tab PO SCH (08:34)
[2020-12-21] MEDS: Bumetanide 1 MG Tab PO SCH (08:34)
[2020-12-21] MEDS: Carvedilol 25 MG Tab PO SCH ×2 (08:35→17:16)
[2020-12-21] MEDS: Ascorbic Acid 500 MG Tab PO SCH (08:35)
[2020-12-21] MEDS: Clopidogrel 75 MG Tab PO SCH (08:35)
[2020-12-21] MEDS: Aspirin 81 MG Tab.EC PO SCH (08:35)
[2020-12-21] MEDS: Oxybutynin 5 MG Tab.ER PO SCH (08:36)
[2020-12-21] MEDS: Sodium Bicarbonate 650 MG Tab PO SCH ×2 (08:36→21:12)
[2020-12-21] MEDS: EYE EYEBOTH SCH ×2 (08:38→21:13)
[2020-12-21] MEDS: BRIMONIDINE EYEBOTH SCH ×2 (08:38→21:13)
[2020-12-21] MEDS: TIMOLOL EYEBOTH SCH ×2 (08:38→21:13)
[2020-12-22] MEDS: Acetaminophen 325 MG Tab PO SCH ×3 (06:11→21:52)
[2020-12-22] MEDS: Heparin Sodium 5,000 Units/ML Vial SUBCUT SCH ×3 (06:11→21:53)
[2020-12-22] MEDS: Omeprazole 20 MG Cap.CR PO SCH (06:11)
[2020-12-22] MEDS: EYE EYEBOTH SCH ×2 (08:09→21:59)
[2020-12-22] MEDS: TIMOLOL EYEBOTH SCH ×2 (08:09→21:59)
[2020-12-22] MEDS: BRIMONIDINE EYEBOTH SCH ×2 (08:09→21:59)
[2020-12-22] MEDS: Bumetanide 1 MG Tab PO SCH (08:10)
[2020-12-22] MEDS: Oxybutynin 5 MG Tab.ER PO SCH (08:10)
[2020-12-22] MEDS: Aspirin 81 MG Tab.EC PO SCH (08:10)
[2020-12-22] MEDS: Clopidogrel 75 MG Tab PO SCH (08:11)
[2020-12-22] MEDS: Sodium Bicarbonate 650 MG Tab PO SCH ×2 (08:11→21:53)
[2020-12-22] MEDS: Cholecalciferol (Vitamin D3) 25 MCG Tab PO SCH (08:12)
[2020-12-22] MEDS: Carvedilol 25 MG Tab PO SCH ×2 (08:12→18:31)
[2020-12-22] MEDS: Ascorbic Acid 500 MG Tab PO SCH (08:12)
[2020-12-23] MEDS: Acetaminophen 325 MG Tab PO SCH ×2 (06:37→13:44)
[2020-12-23] MEDS: Omeprazole 20 MG Cap.CR PO SCH (06:38)
[2020-12-23] MEDS: Heparin Sodium 5,000 Units/ML Vial SUBCUT SCH ×2 (06:38→13:44)
[2020-12-23 07:47] VITALS: BP 105/65; PULSE 78
[2020-12-23] MEDS: Cholecalciferol (Vitamin D3) 25 MCG Tab PO SCH (08:47)
[2020-12-23] MEDS: Carvedilol 25 MG Tab PO SCH (08:48)
[2020-12-23] MEDS: Bumetanide 1 MG Tab PO SCH (08:48)
[2020-12-23] MEDS: Sodium Bicarbonate 650 MG Tab PO SCH (08:48)
[2020-12-23] MEDS: Ascorbic Acid 500 MG Tab PO SCH (08:48)
[2020-12-23] MEDS: Clopidogrel 75 MG Tab PO SCH (08:48)
[2020-12-23] MEDS: Aspirin 81 MG Tab.EC PO SCH (08:48)
[2020-12-23] MEDS: Oxybutynin 5 MG Tab.ER PO SCH (08:48)
[2020-12-23] MEDS: EYE EYEBOTH SCH (08:52)
[2020-12-23] MEDS: BRIMONIDINE EYEBOTH SCH (08:52)
[2020-12-23] MEDS: TIMOLOL EYEBOTH SCH (08:52)
--- NOTE | 2020-12-23 17:52 | PCM.PN ---
- General Info Date of Service: 12/23/20 Admission Dx/Problem (Free Text): 75F w/ pmh systolic CHF EF 30-35%, CAD s/p CABG, mederate MR, pulmonary HT, SVT s/p ablation in 2019, DM2, CKD 4, HT, chronic b/l hydronephrosis s/p left nephrostomy in 2018 w/ chronic hematuria, anemia of chronic/renal disease, PVD c/b left heel non healing ulceration and now s/p left BKA on 12/06 c/b fluid overload, accelerated HT and possible pneumonia now transferred to for Swing Bed. The pt had uneventful stay. Despite her family claiming the home is not ready for her the pt insisted that she be discharged home. Similarly PT did not believe the pt is ready to go home and still needs help w/ transfers. I spoke w/ the pt several times warning her that the outcome may be that she will be left wheelchair bound and never walk w/ a prosthesis. She insisted on discharge. Daughter was instructed on wound care and transfers. - Patient Data Vitals - Most Recent: Last Vital Signs Temp 98.7 F 12/23/20 07:46 Pulse 78 12/23/20 08:48 Resp 16 12/23/20 07:46 BP 105/65 12/23/20 08:48 Pulse Ox 100 12/23/20 07:46 Weight - Most Recent: 161 lb I&O - Last 24 Hours: Intake & Output 12/23/20 12/23/20 12/23/20 06:59 14:59 22:59 Intake Total 575 Balance 575 Med Orders - Current: Current Medications Discontinued Medications Acetaminophen (Acetaminophen 325 Mg Tab) 650 mg PO Q4H PRN PRN Reason: Pain (Mild 1-3)/fever Last Admin: 12/14/20 17:11 Dose: 650 mg Documented by: Acetaminophen (Acetaminophen 325 Mg Tab) 975 mg PO Q8H [facility] Last Admin: 12/16/20 22:33 Dose: 975 mg Documented by: Acetaminophen (Acetaminophen 325 Mg Tab) 975 mg PO 0600,1400,2200 [facility] Last Admin: 12/23/20 13:44 Dose: 975 mg Documented by: Acetaminophen (Acetaminophen 325 Mg Tab) 975 mg PO .STK-MED ONE Stop: 12/21/20 06:01 Ascorbic Acid (Ascorbic Acid 500 Mg Tab) 500 mg PO DAILY [facility] Last Admin: 12/23/20 08:48 Dose: 500 mg Documented by: Aspirin (Aspirin 81 Mg Tab.Ec) 81 mg PO DAILY [facility] Last Admin: 12/23/20 08:48 Dose: 81 mg Documented by: Bumetanide (Bumetanide 1 Mg Tab) 1 mg PO DAILY [facility] Last Admin: 12/23/20 08:48 Dose: 1 mg Documented by: Carvedilol (Carvedilol 25 Mg Tab) 12.5 mg PO BIDMEALS [facility] Last Admin: 12/23/20 08:48 Dose: 12.5 mg Documented by: Cholecalciferol (Cholecalciferol (Vitamin D3) 25 Mcg Tab) 50 mcg PO DAILY [facility] Last Admin: 12/23/20 08:47 Dose: 50 mcg Documented by: Clopidogrel Bisulfate (Clopidogrel 75 Mg Tab) 75 mg PO DAILY [facility] Last Admin: 12/23/20 08:48 Dose: 75 mg Documented by: Heparin Sodium (Porcine) (Heparin Sodium 5,000 Units/Ml Vial) 5,000 units SUBCUT Q8HR [facility] Last Admin: 12/23/20 13:44 Dose: 5,000 units Documented by: Heparin Sodium (Porcine) (Heparin Sodium 5,000 Units/Ml Vial) 5,000 units SUBCUT .STK-MED ONE Stop: 12/21/20 06:01 Lactulose (Lactulose Soln 10 Gm/15 Ml 30 Ml Ud Cup) 20 gm PO BID PRN PRN Reason: Constipation Levofloxacin (Levofloxacin 500 Mg Tab) 500 mg PO Q48H [facility] Stop: 12/17/20 09:01 Last Admin: 12/17/20 11:05 Dose: 500 mg Documented by: Brimonidine/Timolol [Combigan 0.2%-0.5%] Eye DropOwn Med 1 drop EYEBOTH BID [facility] Last Admin: 12/23/20 08:52 Dose: 1 drop Documented by: Omeprazole (Omeprazole 20 Mg Cap.Cr) 20 mg PO ACBREAKFAST [facility] Last Admin: 12/23/20 06:38 Dose: 20 mg Documented by: Omeprazole (Omeprazole 20 Mg Cap.Cr) 20 mg PO .STK-MED ONE Stop: 12/21/20 06:01 Oxybutynin Chloride (Oxybutynin 5 Mg Tab.Er) 10 mg PO DAILY [facility] Last Admin: 12/23/20 08:48 Dose: 10 mg Documented by: Oxycodone HCl (Oxycodone 5 Mg Tab) 5 mg PO Q6HR [facility] Last Admin: 12/14/20 19:32 Dose: Not Given Documented by: Oxycodone HCl (Oxycodone 5 Mg Tab) 2.5 mg PO Q6HR PRN PRN Reason: Pain (severe 7-10) Sodium Bicarbonate (Sodium Bicarbonate 650 Mg Tab) 1,300 mg PO BID [facility] Last Admin: 12/23/20 08:48 Dose: 1,300 mg Documented by: Sodium Bicarbonate (Sodium Bicarbonate 650 Mg Tab) 1,300 mg PO ONETIME ONE Stop: 12/17/20 12:31 Last Admin: 12/17/20 12:33 Dose: 1,300 mg Documented by: - Patient Data Result Diagrams: 12/15/20 06:05 12/20/20 05:54 Sepsis Event Note - Evaluation Sepsis Screening Result: No Definite Risk - Focused Exam Vital Signs: Vital Signs Temp Pulse Pulse Resp BP BP Pulse Ox 12/23/20 08:48 78 105/65 12/23/20 07:46 98.7 F 78 16 105/65 100 - Problem List Review Problem List Initiated/Reviewed/Updated: No - Plan Plan:: #PVD s/p left BKA 3/ - wound care and follow up per d/c instructions - surgical site healing well - pt is requesting d/c home w/ home services and PT #possible pneumonia - completed levofloxacin course as per d/c instructions #RIVAS on CKD4 s/p left nephrostomy - will repeat to re-asses prior to d/c #CAD / chronic systolic CHF / pulm HT / hx SVT / HT - c/w transfer meds PPX - [facility] Full code
--- NOTE | 2020-12-23 17:54 | PCM.DCSUM1 ---
Discharge Summary - Hospital Course Free Text/Narrative:: 75F w/ pmh systolic CHF EF 30-35%, CAD s/p CABG, mederate MR, pulmonary HT, SVT s/p ablation in 2019, DM2, CKD 4, HT, chronic b/l hydronephrosis s/p left nephrostomy in 2018 w/ chronic hematuria, anemia of chronic/renal disease, PVD c/b left heel non healing ulceration and now s/p left BKA on 12/06 c/b fluid overload, accelerated HT and possible pneumonia now transferred to for Swing Bed. The pt had uneventful stay. Despite her family claiming the home is not ready for her the pt insisted that she be discharged home. Similarly PT did not believe the pt is ready to go home and still needs help w/ transfers. I spoke w/ the pt several times warning her that the outcome may be that she will be left wheelchair bound and never walk w/ a prosthesis. She insisted on discharge. Daughter was instructed on wound care and transfers. - Discharge Data Discharge Date: 12/23/20 Discharge Disposition: Home, Self-Care 01 Condition: Good - Referral to Home Health Primary Care Physician: Maite Baeza NP - Patient Summary/Data Consults: Consultations 12/14/20 15:14 OT Evaluation and Treatment [CONS] Routine PT Evaluation and Treatment [CONS] Routine - Discharge Plan *PRESCRIPTION DRUG MONITORING PROGRAM REVIEWED*: Not Applicable *COPY OF PRESCRIPTION DRUG MONITORING REPORT IN PATIENT MALLORY: Not Applicable Prescriptions/Med Rec: Bumetanide [Bumex] 1 mg PO DAILY #30 tablet carvediloL [Coreg] 12.5 mg PO BIDMEALS #30 tablet Home Medications: Home Meds Aspirin [Lo-Dose Aspirin EC] 81 mg PO DAILY 11/17/18 [History] Clopidogrel [Plavix] 75 mg PO DAILY 11/17/18 [History] Oxybutynin Chloride [Ditropan Xl] 10 mg PO DAILY 11/17/18 [History] Ascorbic Acid 500 mg PO DAILY 12/14/20 [History] Brimonidine Tartrate/Timolol [Combigan 0.2%-0.5% Eye Drops] 1 drop EYEBOTH BID 12/14/20 [History] Bumetanide 1 mg PO DAILY 12/14/20 [History] Cholecalciferol (Vitamin D3) [Vitamin D3] 2,000 unit PO DAILY 12/14/20 [History] Lactulose 30 ml PO BID PRN 12/14/20 [History] Omeprazole 20 mg PO DAILY 12/14/20 [History] Bumetanide [Bumex] 1 mg PO DAILY #30 tablet 12/23/20 [Rx] carvediloL [Coreg] 12.5 mg PO BIDMEALS #30 tablet 12/23/20 [Rx] Patient Handouts: Fall Prevention in the Home, Adult, [id number], Stump and Prosthesis Care, Living With an Amputation, Weakness, [id number], Bumetanide Oral Tablets, Carvedilol Tablets, How to Change Your Wound Dressing, [id number], Leg Amputation, Care After - Discharge Summary/Plan Comment DC Time >30 min.: Yes (35 min) - Patient Data Vitals - Most Recent: Last Vital Signs Temp 98.7 F 12/23/20 07:46 Pulse 78 12/23/20 08:48 Resp 16 12/23/20 07:46 BP 105/65 12/23/20 08:48 Pulse Ox 100 12/23/20 07:46 Weight - Most Recent: 161 lb I&O - Last 24 hours: Intake & Output 12/23/20 12/23/20 12/23/20 06:59 14:59 22:59 Intake Total 575 Balance 575 Med Orders - Current: Current Medications Discontinued Medications Acetaminophen (Acetaminophen 325 Mg Tab) 650 mg PO Q4H PRN PRN Reason: Pain (Mild 1-3)/fever Last Admin: 12/14/20 17:11 Dose: 650 mg Documented by: Acetaminophen (Acetaminophen 325 Mg Tab) 975 mg PO Q8H [facility] Last Admin: 12/16/20 22:33 Dose: 975 mg Documented by: Acetaminophen (Acetaminophen 325 Mg Tab) 975 mg PO 0600,1400,2200 [facility] Last Admin: 12/23/20 13:44 Dose: 975 mg Documented by: Acetaminophen (Acetaminophen 325 Mg Tab) 975 mg PO .STK-MED ONE Stop: 12/21/20 06:01 Ascorbic Acid (Ascorbic Acid 500 Mg Tab) 500 mg PO DAILY [facility] Last Admin: 12/23/20 08:48 Dose: 500 mg Documented by: Aspirin (Aspirin 81 Mg Tab.Ec) 81 mg PO DAILY [facility] Last Admin: 12/23/20 08:48 Dose: 81 mg Documented by: Bumetanide (Bumetanide 1 Mg Tab) 1 mg PO DAILY [facility] Last Admin: 12/23/20 08:48 Dose: 1 mg Documented by: Carvedilol (Carvedilol 25 Mg Tab) 12.5 mg PO BIDMEALS [facility] Last Admin: 12/23/20 08:48 Dose: 12.5 mg Documented by: Cholecalciferol (Cholecalciferol (Vitamin D3) 25 Mcg Tab) 50 mcg PO DAILY [facility] Last Admin: 12/23/20 08:47 Dose: 50 mcg Documented by: Clopidogrel Bisulfate (Clopidogrel 75 Mg Tab) 75 mg PO DAILY [facility] Last Admin: 12/23/20 08:48 Dose: 75 mg Documented by: Heparin Sodium (Porcine) (Heparin Sodium 5,000 Units/Ml Vial) 5,000 units SUBCUT Q8HR [facility] Last Admin: 12/23/20 13:44 Dose: 5,000 units Documented by: Heparin Sodium (Porcine) (Heparin Sodium 5,000 Units/Ml Vial) 5,000 units SUBCUT .STK-MED ONE Stop: 12/21/20 06:01 Lactulose (Lactulose Soln 10 Gm/15 Ml 30 Ml Ud Cup) 20 gm PO BID PRN PRN Reason: Constipation Levofloxacin (Levofloxacin 500 Mg Tab) 500 mg PO Q48H [facility] Stop: 12/17/20 09:01 Last Admin: 12/17/20 11:05 Dose: 500 mg Documented by: Brimonidine/Timolol [Combigan 0.2%-0.5%] Eye DropOwn Med 1 drop EYEBOTH BID [facility] Last Admin: 12/23/20 08:52 Dose: 1 drop Documented by: Omeprazole (Omeprazole 20 Mg Cap.Cr) 20 mg PO ACBREAKFAST [facility] Last Admin: 12/23/20 06:38 Dose: 20 mg Documented by: Omeprazole (Omeprazole 20 Mg Cap.Cr) 20 mg PO .STK-MED ONE Stop: 12/21/20 06:01 Oxybutynin Chloride (Oxybutynin 5 Mg Tab.Er) 10 mg PO DAILY [facility] Last Admin: 12/23/20 08:48 Dose: 10 mg Documented by: Oxycodone HCl (Oxycodone 5 Mg Tab) 5 mg PO Q6HR [facility] Last Admin: 12/14/20 19:32 Dose: Not Given Documented by: Oxycodone HCl (Oxycodone 5 Mg Tab) 2.5 mg PO Q6HR PRN PRN Reason: Pain (severe 7-10) Sodium Bicarbonate (Sodium Bicarbonate 650 Mg Tab) 1,300 mg PO BID [facility] Last Admin: 12/23/20 08:48 Dose: 1,300 mg Documented by: Sodium Bicarbonate (Sodium Bicarbonate 650 Mg Tab) 1,300 mg PO ONETIME ONE Stop: 12/17/20 12:31 Last Admin: 12/17/20 12:33 Dose: 1,300 mg Documented by: - Exam Quality Assessment: Denies: Supplemental Oxygen General: Reports: Alert, Oriented, Cooperative HEENT: Reports: Pupils Equal, Pupils Reactive Neck: Reports: Supple Lungs: Reports: Clear to Auscultation, Normal Respiratory Effort Cardiovascular: Reports: Regular Rate, Regular Rhythm, No Murmurs GI/Abdominal Exam: Normal Bowel Sounds, Soft, Non-Tender, No Distention Extremities: No Pedal Edema, Other (s/p left BKA) Skin: Reports: Warm, Dry, Intact Wound/Incisions: Reports: Healing Well Neurological: Reports: No New Focal Deficit Psy/Mental Status: Reports: Alert, Normal Affect, Normal Mood
== END 2020-12-23 17:00 | disposition home or self-care (01) | DRG 559 ==
LOC: DL.MS 12:10
PROVIDERS: ADMIT Internal Medicine; ATTEND Internal Medicine
DX: Z47.81 Encounter for orthopedic aftercare following surgical amputation (principal); J18.9 Pneumonia, unspecified organism; I13.0 Hypertensive heart and chronic kidney disease with heart failure and stage 1 through stage 4 chronic kidney disease, or unspecified chronic kidney disease; I50.22 Chronic systolic (congestive) heart failure; I47.1 Supraventricular tachycardia; N18.4 Chronic kidney disease, stage 4 (severe); L97.429 Non-pressure chronic ulcer of left heel and midfoot with unspecified severity; N17.9 Acute kidney failure, unspecified; R53.81 Other malaise; Z89.512 Acquired absence of left leg below knee; I25.10 Atherosclerotic heart disease of native coronary artery without angina pectoris; I27.20 Pulmonary hypertension, unspecified; E11.22 Type 2 diabetes mellitus with diabetic chronic kidney disease; D63.1 Anemia in chronic kidney disease; E11.51 Type 2 diabetes mellitus with diabetic peripheral angiopathy without gangrene; K59.09 Other constipation; E11.621 Type 2 diabetes mellitus with foot ulcer; H54.7 Unspecified visual loss; E78.00 Pure hypercholesterolemia, unspecified; M19.90 Unspecified osteoarthritis, unspecified site; E11.42 Type 2 diabetes mellitus with diabetic polyneuropathy; E66.9 Obesity, unspecified; Z88.0 Allergy status to penicillin; Z88.8 Allergy status to other drugs, medicaments and biological substances; Z88.5 Allergy status to narcotic agent; Z79.82 Long term (current) use of aspirin; Z79.899 Other long term (current) drug therapy; I25.2 Old myocardial infarction; Z95.5 Presence of coronary angioplasty implant and graft; Z98.49 Cataract extraction status, unspecified eye; Z68.29 Body mass index [BMI] 29.0-29.9, adult
CPT/HCPCS: 36415; 80048; 83735; 84100; 85025; 97110-GO; 97110-GP; 97162-GP; 97167-GO; 97530-GO; 97530-GP; 97535-GO; A9270-GY; J1644

== ENCOUNTER 2021-03-11 21:26 | Emergency (ER) | payer MEDICARE, OTHER ==
--- NOTE | 2021-03-12 01:13 | CT ---
PROCEDURE INFORMATION: Exam: CT Abdomen And Pelvis Without Contrast Exam date and time: 03/12/2021 12:36 AM Age: 75 years old Clinical indication: Other: Pain; Additional info: R/O kidney stones TECHNIQUE: Imaging protocol: Computed tomography of the abdomen and pelvis without contrast. Radiation optimization: All CT scans at this facility use at least one of these dose optimization techniques: automated exposure control; mA and/or kV adjustment per patient size (includes targeted exams where dose is matched to clinical indication); or iterative reconstruction. COMPARISON: CT Abdomen Pelvis wo Cont 12/30/2018 10:21 AM FINDINGS: Lungs: Multiple gallstones again noted new para cardiomegaly is noted new para linear bands of atelectasis in lung bases Liver: Normal. No mass. Gallbladder and bile ducts: Normal. No calcified stones. No ductal dilation. Pancreas: Normal. No ductal dilation. Spleen: Normal. No splenomegaly. Adrenal glands: Normal. No mass. Kidneys and ureters: There is now left percutaneous nephrostomy. Catheter is coiled in the proximal left ureter. There is air in the left renal pelvis. No nephrolithiasis. No hydronephrosis. Stomach and bowel: Unremarkable. No obstruction. No mucosal thickening. Appendix: No evidence of appendicitis. Intraperitoneal space: Unremarkable. No free air. No significant fluid collection. Vasculature: Unremarkable. No abdominal aortic aneurysm. Lymph nodes: Unremarkable. No enlarged lymph nodes. Urinary bladder: Questionable thickening in urinary bladder. Air in urinary bladder Reproductive: Unremarkable as visualized. Bones/joints: Unremarkable. No acute fracture. Soft tissues: Unremarkable. IMPRESSION: 1. Air in left renal system and urinary bladder most likely due to recent procedure. Infection not excluded. Correlate with urine analysis. 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 Note left percutaneous nephrostomy is coiled into the proximal left ureter 3. Cholelithiasis
--- NOTE | 2021-03-12 01:49 | EDM.PDOC ---
ED HPI GENERAL MEDICAL PROBLEM - General Chief Complaint: Genitourinary Problem Stated Complaint: POSSIBLE UTI Time Seen by Provider: 03/12/21 01:48 Source of Information: Reports: Patient, RN, RN Notes Reviewed History Limitations: Reports: No Limitations - History of Present Illness INITIAL COMMENTS - FREE TEXT/NARRATIVE: Kaykay is a 75 y/o female with history of CKD and s/p left nephrostomy tube placement (2019) who presents to the ED via personal vehicle with daughter for complaints of dysuria. The patient reports her symptoms began "..a few days ago" and have maintained in that time. She notes she became worried about infection when she noticed blood in her nephrostomy tube bag this morning. She denies fever, shaking chills, nausea, vomiting, abdominal pain, CVA tenderness, or diarrhea. The last time she was treated for UTI was approximately two moths ago. She has not taken any medication for these symptoms. - Related Data Allergies Allergy/AdvReac Type Severity Reaction Status Date / Time gemfibrozil [From Lopid] Allergy Cannot Verified 03/11/21 23:28 Remember Penicillins Allergy Rash Verified 03/11/21 23:28 propranolol HCl Allergy Cannot Verified 03/11/21 23:28 [From Inderal LA] Remember codeine AdvReac Irritabilit Verified 03/11/21 23:28 y metformin AdvReac Shaking Verified 03/11/21 23:28 Home Meds: Home Meds Aspirin [Lo-Dose Aspirin EC] 81 mg PO DAILY 11/17/18 [History] Clopidogrel [Plavix] 75 mg PO DAILY 11/17/18 [History] Oxybutynin Chloride [Ditropan Xl] 10 mg PO DAILY 11/17/18 [History] Ascorbic Acid 500 mg PO DAILY 12/14/20 [History] Brimonidine Tartrate/Timolol [Combigan 0.2%-0.5% Eye Drops] 1 drop EYEBOTH BID 12/14/20 [History] Bumetanide 1 mg PO DAILY 12/14/20 [History] Cholecalciferol (Vitamin D3) [Vitamin D3] 2,000 unit PO DAILY 12/14/20 [History] Lactulose 30 ml PO BID PRN 12/14/20 [History] Omeprazole 20 mg PO DAILY 12/14/20 [History] Bumetanide [Bumex] 1 mg PO DAILY #30 tablet 12/23/20 [Rx] carvediloL [Coreg] 12.5 mg PO BIDMEALS #30 tablet 12/23/20 [Rx] Past Medical History HEENT History: Reports: Impaired Vision Other HEENT History: wears glasses Cardiovascular History: Reports: CAD, High Cholesterol, Hypertension, IA, Stents Respiratory History: Reports: None Gastrointestinal History: Reports: Chronic Constipation Genitourinary History: Reports: UTI, Recurrent [employer]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: Musculoskeletal History: Reports: Osteoarthritis Neurological History: Reports: Neuropathy, Diabetic Psychiatric History: Reports: None Endocrine/Metabolic History: Reports: Diabetes, Type II, Obesity/BMI 30+ Hematologic History: Reports: Anemia Immunologic History: Reports: None Oncologic (Cancer) History: Reports: None Dermatologic History: Reports: None - Infectious Disease History Infectious Disease History: Reports: None - Past Surgical History Head Surgeries/Procedures: Reports: None HEENT Surgical History: Reports: Cataract Surgery Cardiovascular Surgical History: Reports: Coronary Artery Bypass GI Surgical History: Reports: Hernia Repair/Other Female Surgical History: Reports: Other (See Below) Other Female Surgeries/Procedures: bladder surgery Musculoskeletal Surgical History: Reports: Other (See Below) Other Musculoskeletal Surgeries/Procedures:: carpal tunnel surgery Social & Family History - Family History Family Medical History: No Pertinent Family History - Tobacco Use Tobacco Use Status *Q: Never Tobacco User Second Hand Smoke Exposure: No - Caffeine Use Caffeine Use: Reports: Coffee - Recreational Drug Use Recreational Drug Use: No - Living Situation & Occupation Living situation: Reports: Occupation: Retired ED ROS GENERAL - Review of Systems Review Of Systems: Comprehensive ROS is negative, except as noted in HPI. ED EXAM, RENAL/ - Physical Exam Exam: See Below Exam Limited By: No Limitations General Appearance: Alert, No Apparent Distress Throat/Mouth: Normal Inspection, Normal Oropharynx, Normal Voice, No Airway Compromise Head: Atraumatic, Normocephalic Neck: Normal Inspection, Supple, Non-Tender, Full Range of Motion Respiratory/Chest: No Respiratory Distress, Lungs Clear, Normal Breath Sounds, No Accessory Muscle Use, Chest Non-Tender Cardiovascular: Normal Peripheral Pulses, Regular Rate, Rhythm, No Edema, No Gal lop, No JVD, No Murmur, No Rub GI/Abdominal: Normal Bowel Sounds, Soft, Non-Tender, No Distention, No Abnormal Bruit, No Mass, Pelvis Stable (Female) Exam: Deferred Rectal (Female) Exam: Deferred Back Exam: Full Range of Motion, Other (Left nephrostomy tube). No: CVA Tenderness (L), CVA Tenderness (R) Extremities: Normal Inspection, Normal Range of Motion, Non-Tender, No Pedal Edema, Normal Capillary Refill Neurological: Alert, Oriented, CN II-XII Intact, Normal Cognition, Normal Gait, No Motor/Sensory Deficits Psychiatric: Normal Affect, Normal Mood Skin Exam: Warm, Dry, Intact, Normal Color, No Rash. No: Diaphoretic, Erythema, Jaundice, Mottled, Pallor, Petechiae Course - Vital Signs Last Recorded V/S: Last Vital Signs Temp 96.8 F L 03/12/21 03:17 Pulse 55 L 03/12/21 03:17 Resp 19 03/12/21 03:17 BP 134/73 03/12/21 03:17 Pulse Ox 100 03/12/21 03:17 - Orders/Labs/Meds Orders: Active Orders 24 hr Category Date Time Status CULTURE URINE [RM] Stat Lab 03/11/21 23:15 Received Labs: Laboratory Tests 03/11/21 03/12/21 03/12/21 Range/Units 23:15 01:07 01:07 WBC 11.0 H (5.0-10.0) 10^3/uL RBC 3.53 L (4.2-5.4) 10^6/uL Hgb 10.7 L D (12.0-16.0) g/dL Hct 32.9 L (37.0-47.0) % MCV 93.2 D (80-100) fL MCH 30.3 (27.0-34.0) pg MCHC 32.5 L (33.0-35.0) g/dL Plt Count 344 (150-450) 10^3/uL Neut % (Auto) 62.0 (42.2-75.2) % Lymph % (Auto) 24.1 (20.5-50.1) % [place] % (Auto) 9.6 H (2-8) % Eos % (Auto) 3.7 H (1.0-3.0) % Baso % (Auto) 0.6 (0.0-1.0) % Sodium 143 (136-145) mmol/L Potassium 3.1 L (3.5-5.1) mmol/L Chloride 109 H (98-107) mmol/L Carbon Dioxide 22 (21-32) mmol/L Anion Gap 15.1 H (7-13) mEq/L BUN 37 H (7-18) mg/dL Creatinine 1.66 H (0.55-1.02) mg/dL Est Cr Clr Drug Dosing TNP Estimated GFR (MDRD) 30 BUN/Creatinine Ratio 22.3 (No establ ref range) Glucose 156 H (70-99) mg/dL Lactic Acid (0.4-2.0) mmol/L Calcium 8.8 (8.5-10.1) mg/dL Total Bilirubin 0.3 (0.2-1.0) mg/dL AST 10 L (15-37) U/L ALT 16 (14-59) U/L Alkaline Phosphatase 101 (46-116) U/L Total Protein 6.7 (6.4-8.2) g/dL Albumin 2.4 L (3.4-5.0) g/dL Globulin 4.3 Albumin/Globulin Ratio 0.56 Urine Color [place] (YELLOW) Urine Appearance Turbid (CLEAR) Urine pH 5.0 (5.0-9.0) Ur Specific [place] 1.020 (1.005-1.030) Urine Protein >=300 H (NEGATIVE) Urine Glucose (UA) Negative (NEGATIVE) Urine Ketones Negative (NEGATIVE) Urine Occult Blood Large H (NEGATIVE) Urine Nitrite Negative (NEGATIVE) Urine Bilirubin Negative (NEGATIVE) Urine Urobilinogen 0.2 (0.2-1.0) mg/dL Ur Leukocyte Esterase Moderate H (NEGATIVE) Urine RBC >100 H /HPF Urine WBC >100 H (0-5/HPF) /HPF Ur Epithelial Cells Rare (NOT SEEN) /HPF Amorphous Sediment Moderate H (NOT SEEN) /HPF Urine Bacteria Many H (0-FEW/HPF) /HPF Urine Mucus Not seen (NOT SEEN) /LPF 03/12/21 Range/Units 01:07 WBC (5.0-10.0) 10^3/uL RBC (4.2-5.4) 10^6/uL Hgb (12.0-16.0) g/dL Hct (37.0-47.0) % MCV (80-100) fL MCH (27.0-34.0) pg MCHC (33.0-35.0) g/dL Plt Count (150-450) 10^3/uL Neut % (Auto) (42.2-75.2) % Lymph % (Auto) (20.5-50.1) % [place] % (Auto) (2-8) % Eos % (Auto) (1.0-3.0) % Baso % (Auto) (0.0-1.0) % Sodium (136-145) mmol/L Potassium (3.5-5.1) mmol/L Chloride (98-107) mmol/L Carbon Dioxide (21-32) mmol/L Anion Gap (7-13) mEq/L BUN (7-18) mg/dL Creatinine (0.55-1.02) mg/dL Est Cr Clr Drug Dosing Estimated GFR (MDRD) BUN/Creatinine Ratio (No establ ref range) Glucose (70-99) mg/dL Lactic Acid 0.5 (0.4-2.0) mmol/L Calcium (8.5-10.1) mg/dL Total Bilirubin (0.2-1.0) mg/dL AST (15-37) U/L ALT (14-59) U/L Alkaline Phosphatase (46-116) U/L Total Protein (6.4-8.2) g/dL Albumin (3.4-5.0) g/dL Globulin Albumin/Globulin Ratio Urine Color (YELLOW) Urine Appearance (CLEAR) Urine pH (5.0-9.0) Ur Specific [place] (1.005-1.030) Urine Protein (NEGATIVE) Urine Glucose (UA) (NEGATIVE) Urine Ketones (NEGATIVE) Urine Occult Blood (NEGATIVE) Urine Nitrite (NEGATIVE) Urine Bilirubin (NEGATIVE) Urine Urobilinogen (0.2-1.0) mg/dL Ur Leukocyte Esterase (NEGATIVE) Urine RBC /HPF Urine WBC (0-5/HPF) /HPF Ur Epithelial Cells (NOT SEEN) /HPF Amorphous Sediment (NOT SEEN) /HPF Urine Bacteria (0-FEW/HPF) /HPF Urine Mucus (NOT SEEN) /LPF Meds: Medications Discontinued Medications Generic Name Dose Route Start Last Admin Trade Name Freq PRN Reason Stop Dose Admin Cephalexin 500 mg 03/12/21 03:11 03/12/21 03:21 Cephalexin 500 Mg Cap PO 03/12/21 03:12 500 mg ONETIME ONE Administration - Radiology Interpretation Free Text/Narrative:: [facility] [place] [facility] Final Radiology Report Call: [phone] assistance Online chat: [email or web address] Name: KAYKAY HOWELL Age: 75Years F Date: 03/12/2021 SSN: -- : [id number] Study: CT ABDOMEN PELVIS WO CONT Requesting Physician: Danita Morrison Images: [id number] Addl Studies: Provided Clinical History: r/o kidney stones Contrast: Without Contrast Medium: Contrast Amount: Contrast Method: Page 1 of 2 PROCEDURE INFORMATION: Exam: CT Abdomen And Pelvis Without Contrast Exam date and time: 03/12/2021 12:36 AM Age: 75 years old Clinical indication: Other: Pain; Additional info: R/O kidney stones TECHNIQUE: Imaging protocol: Computed tomography of the abdomen and pelvis without contrast. Radiation optimization: All CT scans at this facility use at least one of these dose optimization techniques: automated exposure control; mA and/or kV adjustment per patient size (includes targeted exams where dose is matched to clinical indication); or iterative reconstruction. COMPARISON: CT Abdomen Pelvis wo Cont 12/30/2018 10:21 AM FINDINGS: Lungs: Multiple gallstones again noted new para cardiomegaly is noted new para linear bands of atelectasis in lung bases Liver: Normal. No mass. Gallbladder and bile ducts: Normal. No calcified stones. No ductal dilation. Pancreas: Normal. No ductal dilation. Spleen: Normal. No splenomegaly. Adrenal glands: Normal. No mass. Kidneys and ureters: There is now left percutaneous nephrostomy. Catheter is coiled in the proximal left ureter. There is air in the left renal pelvis. No nephrolithiasis. No hydronephrosis. Stomach and bowel: Unremarkable. No obstruction. No mucosal thickening. Appendix: No evidence of appendicitis. Intraperitoneal space: Unremarkable. No free air. No significant fluid collection. Vasculature: Unremarkable. No abdominal aortic aneurysm. Lymph nodes: Unremarkable. No enlarged lymph nodes. Urinary bladder: Questionable thickening in urinary bladder. Air in urinary bladder Reproductive: Unremarkable as visualized. Bones/joints: Unremarkable. No acute fracture. Soft tissues: Unremarkable. IMPRESSION: 1. Air in left renal system and urinary bladder most likely due to recent procedure. Infection not excluded. Correlate with urine analysis. 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 Note left percutaneous nephrostomy is coiled into the proximal left ureter 3. Cholelithiasis Thank you for allowing us to participate in the care of your patient. Dictated and Authenticated by: Jose Oneal MD 03/12/2021 1:13 AM Central Time ([place] & [place]) - Re-Assessments/Exams Free Text/Narrative Re-Assessment/Exam: 03/12/21 UA positive for WBC and RBC, amorphous sediment, and leukocyte esterase. Will obtain CT abdomen/pelvis. CT reveals coiled nephrostomy tube, as well as air in bladder and left kidney. Case discussed with Dr. Fisher, urologist at [facility] in [place], due to concern for emphysematous cystitis/pyelonephritis. Given lack of systemic symptoms and limited evidence for significant infection via lab work, Dr. Fisher states the air in kidney and bladder likely due to malpositioned nephrostomy tube. Patient to follow up with IR on Saturday (in two days) for correction of tube placement. Findings of examination, lab work, imaging, and discussion with Dr. Fisher reviewed with patient and her daughter. Will treat UTI with cephalexin empirically based on alex cultures. Red flag signs and symptoms which would warrant immediate reevaluation reviewed. Patient and daughter verbalized understanding and agreement with the plan of care. Departure - Departure Time of Disposition: 03:05 Disposition: Home, Self-Care 01 Condition: Good Clinical Impression: Acute cystitis with hematuria, Malfunction of nephrostomy tube, Nephrostomy tube displaced - Discharge Information *PRESCRIPTION DRUG MONITORING PROGRAM REVIEWED*: Not Applicable *COPY OF PRESCRIPTION DRUG MONITORING REPORT IN PATIENT MALLORY: Not Applicable Instructions: Urinary Tract Infection, Adult, [id number] Referrals: PCP,None [Primary Care Provider] - Forms: ED Department Discharge Additional Instructions: Rx: cephalexin 1.) Follow up with interventional radiology at [facility] on Saturday to schedule reposition of nephrostomy tube. 2.) Take all of you antibiotic until it is gone, even as symptoms improve. 3.) Follow up with primary care provider, or return to the emergency department, should symptoms persist or worsen. Sepsis Event Note (ED) - Evaluation Sepsis Screening Result: No Definite Risk - Focused Exam Vital Signs: Vital Signs Temp Pulse Resp BP Pulse Ox 03/12/21 03:17 96.8 F L 55 L 19 134/73 100 03/11/21 22:52 97.7 F 57 L 18 152/52 H 100 - My Orders Last 24 Hours: My Active Orders 03/11/21 23:15 CULTURE URINE [RM] Stat - Assessment/Plan Last 24 Hours: My Active Orders 03/11/21 23:15 CULTURE URINE [RM] Stat
[2021-03-12] MEDS ORDERED: Cephalexin 500 MG Cap PO ONE (03:11)
[2021-03-12 03:17] VITALS: BP 134/73; PULSE 55
[2021-03-12 03:50] LABS: ANION GAP 15.1 mEq/L (7-13); CHLORIDE,CL 109 mmol/L (98-107); SODIUM,NA 143 mmol/L (136-145)
== END 2021-03-12 03:30 | disposition home or self-care (01) ==
LOC: DL.ED 21:26
DX: N30.00 Acute cystitis without hematuria (principal); N99.522 Malfunction of incontinent external stoma of urinary tract; I25.10 Atherosclerotic heart disease of native coronary artery without angina pectoris; E78.00 Pure hypercholesterolemia, unspecified; I25.2 Old myocardial infarction; I12.9 Hypertensive chronic kidney disease with stage 1 through stage 4 chronic kidney disease, or unspecified chronic kidney disease; E11.22 Type 2 diabetes mellitus with diabetic chronic kidney disease; N18.9 Chronic kidney disease, unspecified; Z88.0 Allergy status to penicillin; Z88.5 Allergy status to narcotic agent; Z88.8 Allergy status to other drugs, medicaments and biological substances
CPT/HCPCS: 36415; 74176; 80053; 81001; 83605; 85025; 87086; 87088; 87186; 99284; 99284-25; A9270-GY

== ENCOUNTER 2021-04-14 16:32 | Inpatient (IN) | payer MEDICARE, OTHER ==
[2021-04-14 19:52] LABS: ANION GAP 20.9 mEq/L (7-13); CHLORIDE,CL 111 mmol/L (98-107); SODIUM,NA 145 mmol/L (136-145)
[2021-04-14] MEDS ORDERED: Pantoprazole 40 MG Vial IVPUSH ONE (20:26)
[2021-04-14] MEDS ORDERED: Ondansetron 4 MG/2 ML SDV IVPUSH ONE (20:26)
--- NOTE | 2021-04-14 20:29 | EDM.PDOC ---
ED HPI GENERAL MEDICAL PROBLEM - General Chief Complaint: Gastrointestinal Problem Stated Complaint: ULCER IS ACTING UP, THROWING UP, DHIREA Time Seen by Provider: 04/14/21 19:40 Source of Information: Reports: Patient, Family History Limitations: Reports: No Limitations, Language Barrier - History of Present Illness INITIAL COMMENTS - FREE TEXT/NARRATIVE: ED with c/o abdominal pain bloating, nausea vomiting and diarrhea, 2 days prior black tinged watery stools. Emesis yellow watery. Mid abdominal pain, decreased appetite. No fever or chills. No prior hx abdominal surgeries. 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 no drainage, Nephrostomy left, no change in urine, clear, no change in odor. Abdomen Pain Score (Numeric/FACES): 5 - Related Data Allergies Allergy/AdvReac Type Severity Reaction Status Date / Time gemfibrozil [From Lopid] Allergy Cannot Verified 04/14/21 23:59 Remember Penicillins Allergy Rash Verified 04/14/21 23:59 propranolol HCl Allergy Cannot Verified 04/14/21 23:59 [From Inderal LA] Remember codeine AdvReac Irritabilit Verified 04/14/21 23:59 y metformin AdvReac Shaking Verified 04/14/21 23:59 Home Meds: Home Meds Aspirin [Lo-Dose Aspirin EC] 81 mg PO DAILY 11/17/18 [History] Clopidogrel [Plavix] 75 mg PO DAILY 11/17/18 [History] Oxybutynin Chloride [Ditropan Xl] 10 mg PO BEDTIME 11/17/18 [History] Ascorbic Acid 500 mg PO BIDMEALS 12/14/20 [History] Brimonidine Tartrate/Timolol [Combigan 0.2%-0.5% Eye Drops] 1 drop EYELF BID 12/14/20 [History] Lactulose 30 ml PO BID PRN 12/14/20 [History] Omeprazole 20 mg PO DAILY 12/14/20 [History] Bumetanide [Bumex] 1 mg PO DAILY #30 tablet 12/23/20 [Rx] Multivitamin with Minerals [Multiple Vitamin] 1 tab PO WITHBREAKFAST 04/14/21 [History] Potassium Chloride 15 ml PO DAILY 04/14/21 [History] carvediloL [Carvedilol] 6.25 mg PO BIDMEALS 04/14/21 [History] Past Medical History HEENT History: Reports: Impaired Vision Other HEENT History: wears glasses Cardiovascular History: Reports: CAD, High Cholesterol, Hypertension, DE, Stents Respiratory History: Reports: None Gastrointestinal History: Reports: Chronic Constipation Genitourinary History: Reports: UTI, Recurrent [employer] History: Reports: Musculoskeletal History: Reports: Osteoarthritis Neurological History: Reports: Neuropathy, Diabetic Psychiatric History: Reports: None Endocrine/Metabolic History: Reports: Diabetes, Type II, Obesity/BMI 30+ Hematologic History: Reports: Anemia Immunologic History: Reports: None Oncologic (Cancer) History: Reports: None Dermatologic History: Reports: None - Infectious Disease History Infectious Disease History: Reports: None - Past Surgical History Head Surgeries/Procedures: Reports: None HEENT Surgical History: Reports: Cataract Surgery Cardiovascular Surgical History: Reports: Coronary Artery Bypass GI Surgical History: Reports: Hernia Repair/Other Female Surgical History: Reports: Other (See Below) Other Female Surgeries/Procedures: bladder surgery Musculoskeletal Surgical History: Reports: Amputation, Other (See Below) Other Musculoskeletal Surgeries/Procedures:: carpal tunnel surgery, amputation December 06 left leg and March 16 right leg Social & Family History - Family History Family Medical History: No Pertinent Family History - Tobacco Use Tobacco Use Status *Q: Never Tobacco User Second Hand Smoke Exposure: No - Caffeine Use Caffeine Use: Reports: None - Recreational Drug Use Recreational Drug Use: No - Living Situation & Occupation Living situation: Reports: Occupation: Retired ED ROS GENERAL - Review of Systems Review Of Systems: Comprehensive ROS is negative, except as noted in HPI. ED EXAM, GI/ABD - Physical Exam Exam: See Below Exam Limited By: No Limitations General Appearance: Alert, Mild Distress Ears: Normal External Exam, Hearing Grossly Normal Nose: Normal Inspection Throat/Mouth: Normal Inspection Head: Atraumatic, Normocephalic Neck: Normal Inspection Respiratory/Chest: No Respiratory Distress, Lungs Clear Cardiovascular: Normal Peripheral Pulses, Regular Rate, Rhythm GI/Abdominal Exam: Distended, Tender (mid), Abnormal Bowel Sounds (tympanic URQ decreased lower) Extremities: Other (bilateral lower extremity amputation) Neurological: Alert, Oriented, Normal Cognition Psychiatric: Normal Affect Skin Exam: Warm, Dry, Wound/Incision (left BKA wound distal stump chronic since december. dry, beefy base, lateral wound scant green crust.) Course - Vital Signs Last Recorded V/S: Last Vital Signs Temp 98.7 F 04/16/21 04:00 Pulse 64 04/16/21 04:00 Resp 16 04/16/21 04:00 BP 135/54 L 04/16/21 04:00 Pulse Ox 99 04/16/21 04:00 - Orders/Labs/Meds Orders: Medication Orders Acetaminophen (Acetaminophen 325 Mg Tab) 650 mg PO Q4H PRN PRN Reason: Pain (Mild 1-3)/fever Aspirin (Aspirin 81 Mg Tab.Ec) 81 mg PO DAILY [facility] Last Admin: 04/15/21 08:19 Dose: 81 mg Documented by: SCHUYLER Carvedilol (Carvedilol 6.25 Mg Tab) 6.25 mg PO BIDMEALS [facility] Last Admin: 04/15/21 17:33 Dose: Not Given Documented by: Admin: 04/15/21 08:21 Dose: 6.25 mg Documented by: SCHUYLER Clopidogrel Bisulfate (Clopidogrel 75 Mg Tab) 75 mg PO DAILY [facility] Last Admin: 04/15/21 08:21 Dose: 75 mg Documented by: SCHUYLER Dextrose/Water (50% Dextrose In Water 50 Ml Syringe) 50 ml IVPUSH Q15M PRN PRN Reason: Hypoglycemia Glucagon (Glucagon,Human Recombinant 1 Mg Vial) 1 mg IM Q15M PRN PRN Reason: Hypoglycemia Heparin Sodium (Porcine) (Heparin Sodium 5,000 Units/Ml Vial) 5,000 units SUBCUT Q12H [facility] Last Admin: 04/15/21 20:43 Dose: 5,000 units Documented by: Admin: 04/15/21 08:22 Dose: 5,000 units Documented by: SCHUYLER Ceftriaxone Sodium 1 gm/ (Sodium Chloride) 50 mls @ 100 mls/hr IV Q24H [facility] Last Admin: 04/16/21 01:18 Dose: 100 mls/hr Documented by: Infusion: 04/15/21 01:48 Dose: 100 mls/hr Documented by: Admin: 04/15/21 01:18 Dose: 100 mls/hr Documented by: DONNA Sodium Chloride (Normal Saline) 1,000 mls @ 75 mls/hr IV ASDIRECTED [facility] Last Admin: 04/15/21 22:26 Dose: 75 mls/hr Documented by: JAROD Insulin Human Lispro (Insulin Lispro 100 Units/Ml 3 Ml Vial) 0 unit SUBCUT Q6H [facility]; Protocol Last Admin: 04/16/21 04:43 Dose: Not Given Documented by: Admin: 04/15/21 22:24 Dose: Not Given Documented by: JAROD Brimonidine Tartrate /Timolol (Combigan) 0.2%-0.5% Eye Drops Own Med 1 drop EYELF BID [facility] Last Admin: 04/15/21 20:44 Dose: 1 drop Documented by: JAROD Omeprazole (Omeprazole 20 Mg Cap.Cr) 20 mg PO ACBREAKFAST [facility] Last Admin: 04/16/21 06:10 Dose: 20 mg Documented by: Admin: 04/15/21 08:22 Dose: 20 mg Documented by: SCHUYLER Ondansetron HCl (Ondansetron 4 Mg/2 Ml Sdv) 4 mg IVPUSH Q4H PRN PRN Reason: Nausea/Vomiting Oxybutynin Chloride (Oxybutynin 5 Mg Tab.Er) 10 mg PO BEDTIME [facility] Last Admin: 04/15/21 20:42 Dose: 10 mg Documented by: JAROD Senna/Docusate Sodium (Docusate Sodium/Sennosides 50-8.6 Mg Tab) 2 tab PO BID [facility] Last Admin: 04/15/21 20:42 Dose: 2 tab Documented by: Admin: 04/15/21 08:21 Dose: 2 tab Documented by: Admin: 04/15/21 01:22 Dose: Not Given Documented by: DONNA Sodium Bicarbonate (Sodium Bicarbonate 650 Mg Tab) 650 mg PO TID [facility] Sodium Chloride (Sodium Chloride 0.9% 10 Ml Syringe) 10 ml FLUSH ASDIRECTED PRN PRN Reason: Keep Vein Open Labs: Laboratory Tests 04/14/21 04/14/21 04/14/21 Range/Units 19:25 19:25 19:25 WBC 10.9 H (5.0-10.0) 10^3/uL RBC 3.39 L (4.2-5.4) 10^6/uL Hgb 10.3 L (12.0-16.0) g/dL Hct 32.6 L (37.0-47.0) % MCV 96.2 D (80-100) fL MCH 30.4 (27.0-34.0) pg MCHC 31.6 L (33.0-35.0) g/dL Plt Count 394 (150-450) 10^3/uL Neut % (Auto) 84.0 H (42.2-75.2) % Lymph % (Auto) 11.8 L (20.5-50.1) % Kidder % (Auto) 3.7 (2-8) % Eos % (Auto) 0.2 L (1.0-3.0) % Baso % (Auto) 0.3 (0.0-1.0) % PT 10.6 (9.0-12.0) SEC INR 1.1 (0.9-1.2) Sodium 145 (136-145) mmol/L Potassium 2.9 L (3.5-5.1) mmol/L Chloride 111 H (98-107) mmol/L Carbon Dioxide 16 L (21-32) mmol/L Anion Gap 20.9 H (7-13) mEq/L BUN 39 H (7-18) mg/dL Creatinine 1.94 H (0.55-1.02) mg/dL Est Cr Clr Drug Dosing TNP Estimated GFR (MDRD) 25 BUN/Creatinine Ratio 20.1 (No establ ref range) Glucose 133 H (70-99) mg/dL Lactic Acid (0.4-2.0) mmol/L Calcium 9.1 (8.5-10.1) mg/dL Magnesium 2.3 (1.8-2.4) mg/dL Iron (50-175) ug/dL TIBC (250-450) ug/dL % Saturation (20.0-50.0) % Ferritin (8-252) mg/mL Total Bilirubin 0.4 (0.2-1.0) mg/dL AST 17 (15-37) U/L ALT 12 L (14-59) U/L Alkaline Phosphatase 106 (46-116) U/L Troponin I High Sens (<=51) pg/mL Total Protein 6.8 (6.4-8.2) g/dL Albumin 2.7 L (3.4-5.0) g/dL Globulin 4.1 Albumin/Globulin Ratio 0.66 Amylase 21 L (25-115) U/L Lipase 69 L (73-393) U/L Urine Color (YELLOW) Urine Appearance (CLEAR) Urine pH (5.0-9.0) Ur Specific [place] (1.005-1.030) Urine Protein (NEGATIVE) Urine Glucose (UA) (NEGATIVE) Urine Ketones (NEGATIVE) Urine Occult Blood (NEGATIVE) Urine Nitrite (NEGATIVE) Urine Bilirubin (NEGATIVE) Urine Urobilinogen (0.2-1.0) mg/dL Ur Leukocyte Esterase (NEGATIVE) Urine RBC /HPF Urine WBC (0-5/HPF) /HPF Ur Epithelial Cells (NOT SEEN) /HPF Urine Bacteria (0-FEW/HPF) /HPF Ketones SARS-CoV-2 RNA (CATA) (NEGATIVE) 04/14/21 04/14/21 04/14/21 Range/Units 19:25 19:25 19:25 WBC (5.0-10.0) 10^3/uL RBC (4.2-5.4) 10^6/uL Hgb (12.0-16.0) g/dL Hct (37.0-47.0) % MCV (80-100) fL MCH (27.0-34.0) pg MCHC (33.0-35.0) g/dL Plt Count (150-450) 10^3/uL Neut % (Auto) (42.2-75.2) % Lymph % (Auto) (20.5-50.1) % Kidder % (Auto) (2-8) % Eos % (Auto) (1.0-3.0) % Baso % (Auto) (0.0-1.0) % PT (9.0-12.0) SEC INR (0.9-1.2) Sodium (136-145) mmol/L Potassium (3.5-5.1) mmol/L Chloride (98-107) mmol/L Carbon Dioxide (21-32) mmol/L Anion Gap (7-13) mEq/L BUN (7-18) mg/dL Creatinine (0.55-1.02) mg/dL Est Cr Clr Drug Dosing Estimated GFR (MDRD) BUN/Creatinine Ratio (No establ ref range) Glucose (70-99) mg/dL Lactic Acid 0.6 (0.4-2.0) mmol/L Calcium (8.5-10.1) mg/dL Magnesium (1.8-2.4) mg/dL Iron 27 L (50-175) ug/dL TIBC 172 L (250-450) ug/dL % Saturation 15.7 L (20.0-50.0) % Ferritin 981 H (8-252) mg/mL Total Bilirubin (0.2-1.0) mg/dL AST (15-37) U/L ALT (14-59) U/L Alkaline Phosphatase (46-116) U/L Troponin I High Sens 22 (<=51) pg/mL Total Protein (6.4-8.2) g/dL Albumin (3.4-5.0) g/dL Globulin Albumin/Globulin Ratio Amylase (25-115) U/L Lipase (73-393) U/L Urine Color (YELLOW) Urine Appearance (CLEAR) Urine pH (5.0-9.0) Ur Specific [place] (1.005-1.030) Urine Protein (NEGATIVE) Urine Glucose (UA) (NEGATIVE) Urine Ketones (NEGATIVE) Urine Occult Blood (NEGATIVE) Urine Nitrite (NEGATIVE) Urine Bilirubin (NEGATIVE) Urine Urobilinogen (0.2-1.0) mg/dL Ur Leukocyte Esterase (NEGATIVE) Urine RBC /HPF Urine WBC (0-5/HPF) /HPF Ur Epithelial Cells (NOT SEEN) /HPF Urine Bacteria (0-FEW/HPF) /HPF Ketones SARS-CoV-2 RNA (CATA) (NEGATIVE) 04/14/21 04/14/21 04/14/21 Range/Units 19:25 21:41 22:48 WBC (5.0-10.0) 10^3/uL RBC (4.2-5.4) 10^6/uL Hgb (12.0-16.0) g/dL Hct (37.0-47.0) % MCV (80-100) fL MCH (27.0-34.0) pg MCHC (33.0-35.0) g/dL Plt Count (150-450) 10^3/uL Neut % (Auto) (42.2-75.2) % Lymph % (Auto) (20.5-50.1) % Kidder % (Auto) (2-8) % Eos % (Auto) (1.0-3.0) % Baso % (Auto) (0.0-1.0) % PT (9.0-12.0) SEC INR (0.9-1.2) Sodium (136-145) mmol/L Potassium (3.5-5.1) mmol/L Chloride (98-107) mmol/L Carbon Dioxide (21-32) mmol/L Anion Gap (7-13) mEq/L BUN (7-18) mg/dL Creatinine (0.55-1.02) mg/dL Est Cr Clr Drug Dosing Estimated GFR (MDRD) BUN/Creatinine Ratio (No establ ref range) Glucose (70-99) mg/dL Lactic Acid (0.4-2.0) mmol/L Calcium (8.5-10.1) mg/dL Magnesium (1.8-2.4) mg/dL Iron (50-175) ug/dL TIBC (250-450) ug/dL % Saturation (20.0-50.0) % Ferritin (8-252) mg/mL Total Bilirubin (0.2-1.0) mg/dL AST (15-37) U/L ALT (14-59) U/L Alkaline Phosphatase (46-116) U/L Troponin I High Sens (<=51) pg/mL Total Protein (6.4-8.2) g/dL Albumin (3.4-5.0) g/dL Globulin Albumin/Globulin Ratio Amylase (25-115) U/L Lipase (73-393) U/L Urine Color Yellow (YELLOW) Urine Appearance Turbid (CLEAR) Urine pH 5.5 (5.0-9.0) Ur Specific [place] >= 1.030 (1.005-1.030) Urine Protein 100 H (NEGATIVE) Urine Glucose (UA) Negative (NEGATIVE) Urine Ketones Negative (NEGATIVE) Urine Occult Blood Trace-intact H (NEGATIVE) Urine Nitrite Negative (NEGATIVE) Urine Bilirubin Negative (NEGATIVE) Urine Urobilinogen 0.2 (0.2-1.0) mg/dL Ur Leukocyte Esterase Large H (NEGATIVE) Urine RBC Not seen /HPF Urine WBC Packed H (0-5/HPF) /HPF Ur Epithelial Cells Occasional (NOT SEEN) /HPF Urine Bacteria Many H (0-FEW/HPF) /HPF Ketones Small-20 mg/dl SARS-CoV-2 RNA (CATA) Negative (NEGATIVE) Meds: Medications Generic Name Dose Route Start Last Admin Trade Name Az PRN Reason Stop Dose Admin Acetaminophen 650 mg 04/15/21 00:43 Acetaminophen 325 Mg Tab PO Q4H PRN Pain (Mild 1-3)/fever Aspirin 81 mg 04/15/21 09:00 04/15/21 08:19 Aspirin 81 Mg Tab.Ec PO 81 mg DAILY ARIELLE Administration Carvedilol 6.25 mg 04/15/21 08:00 04/15/21 17:33 Carvedilol 6.25 Mg Tab PO Not Given BIDMEALS ARIELLE Clopidogrel Bisulfate 75 mg 04/15/21 09:00 04/15/21 08:21 Clopidogrel 75 Mg Tab PO 75 mg DAILY ARIELLE Administration Dextrose/Water 50 ml 04/15/21 22:00 50% Dextrose In Water 50 Ml Syringe IVPUSH Q15M PRN Hypoglycemia Glucagon 1 mg 04/15/21 22:00 Glucagon,Human Recombinant 1 Mg Vial IM Q15M PRN Hypoglycemia Heparin Sodium (Porcine) 5,000 units 04/15/21 09:00 04/15/21 20:43 Heparin Sodium 5,000 Units/Ml Vial SUBCUT 5,000 units Q12H ARIELLE Administration Ceftriaxone Sodium 1 gm/ 50 mls @ 100 mls/hr 04/15/21 01:00 04/16/21 01:18 Sodium Chloride IV 100 mls/hr Q24H ARIELLE Administration Sodium Chloride 1,000 mls @ 75 mls/hr 04/15/21 22:00 04/15/21 22:26 Normal Saline IV 75 mls/hr ASDIRECTED ARIELLE Administration Insulin Human Lispro 0 unit 04/15/21 22:00 04/16/21 04:43 Insulin Lispro 100 Units/Ml 3 Ml Vial SUBCUT Not Given Q6H [facility] Protocol Brimonidine Tartrate 1 drop 04/15/21 21:00 04/15/21 20:44 /Timolol (Combigan) EYELF 1 drop 0.2%-0.5% Eye Drops BID ARIELLE Administration Own Med Omeprazole 20 mg 04/15/21 08:00 04/16/21 06:10 Omeprazole 20 Mg Cap.Cr PO 20 mg ACBREAKFAST ARIELLE Administration Ondansetron HCl 4 mg 04/15/21 00:43 Ondansetron 4 Mg/2 Ml Sdv IVPUSH Q4H PRN Nausea/Vomiting Oxybutynin Chloride 10 mg 04/15/21 21:00 04/15/21 20:42 Oxybutynin 5 Mg Tab.Er PO 10 mg BEDTIME ARIELLE Administration Senna/Docusate Sodium 2 tab 04/15/21 01:00 04/15/21 20:42 Docusate Sodium/Sennosides 50-8.6 Mg Tab PO 2 tab BID ARIELLE Administration Sodium Bicarbonate 650 mg 04/16/21 09:00 Sodium Bicarbonate 650 Mg Tab PO TID ARIELLE Sodium Chloride 10 ml 04/15/21 00:43 Sodium Chloride 0.9% 10 Ml Syringe FLUSH ASDIRECTED PRN Keep Vein Open Discontinued Medications Generic Name Dose Route Start Last Admin Trade Name Freq PRN Reason Stop Dose Admin Dextrose/Water 100 ml 04/15/21 08:29 04/15/21 09:22 50% Dextrose In Water 50 Ml Syringe IVPUSH 04/15/21 08:30 100 ml ONETIME ONE Administration Dextrose/Water 50 ml 04/15/21 21:23 04/15/21 21:30 50% Dextrose In Water 50 Ml Syringe IVPUSH 04/15/21 21:24 50 ml ONETIME ONE Administration Dextrose/Water Confirm 04/15/21 21:22 04/15/21 21:37 50% Dextrose In Water 50 Ml Syringe Administered 04/15/21 21:23 Not Given Dose 50 ml .ROUTE .STK-MED ONE Heparin Sodium (Porcine) 5,000 units 04/15/21 00:45 04/15/21 02:10 Heparin Sodium 5,000 Units/Ml Vial SUBCUT Not Given Q12H ARIELLE Potassium Chloride 10 meq/ 100 mls @ 100 mls/hr 04/14/21 21:36 04/14/21 21:44 Premix IV 04/14/21 22:35 100 mls/hr ONETIME ONE Administration Sodium Chloride 1,000 mls @ 50 mls/hr 04/14/21 21:36 04/15/21 08:09 Normal Saline IV 04/15/21 17:35 75 mls/hr .BOLUS ONE Infusion Sodium Chloride 1,000 mls @ 75 mls/hr 04/15/21 00:45 Normal Saline IV ASDIRECTED ARIELLE Potassium Chloride 20 meq/ 100 mls @ 50 mls/hr 04/15/21 01:00 04/15/21 06:06 Premix IV 04/15/21 06:59 50 mls/hr Q2H ARIELLE Administration Insulin Regular in 0.9 % NACL 100 unit in 100 mls @ 2.5 drops/hr 04/15/21 01:00 Myxredlin In Ns 100 Unit/100 Ml IV CONTINUOUS ARIELLE Protocol Sodium Chloride 1,000 mls @ 50 mls/hr 04/15/21 07:45 Sodium Chloride 0.45% IV ASDIRECTED ARIELLE Insulin Regular in 0.9 % NACL 100 unit in 100 mls @ 2.5 mls/hr 04/15/21 07:45 04/15/21 21:24 Myxredlin In Ns 100 Unit/100 Ml IV 0 mls/hr CONTINUOUS ARIELLE 0 mls/hr Titration Protocol Dextrose/Sodium Chloride 1,000 mls @ 75 mls/hr 04/15/21 08:00 04/15/21 20:41 Dextrose 5%-1/2 Ns IV 75 mls/hr ASDIRECTED [facility]ELLE Administration Potassium Chloride 20 meq/ 100 mls @ 50 mls/hr 04/15/21 17:00 04/15/21 20:02 Premix IV 04/15/21 20:59 50 mls/hr Q2H [facility]ELLE Administration Ondansetron HCl 4 mg 04/14/21 20:26 04/14/21 20:40 Ondansetron 4 Mg/2 Ml Sdv IVPUSH 04/14/21 20:27 4 mg ONETIME ONE Administration Pantoprazole Sodium 40 mg 04/14/21 20:26 04/14/21 20:43 Pantoprazole 40 Mg Vial IVPUSH 04/14/21 20:27 40 mg ONETIME ONE Administration Potassium Chloride 40 meq 04/15/21 13:00 04/15/21 18:19 Potassium Chloride 10 Meq Tab.Er PO 04/15/21 15:01 Not Given Q1H ARIELLE Potassium Chloride 40 meq 04/15/21 18:00 04/15/21 18:19 Potassium Chloride 10 Meq Tab.Er PO 04/15/21 18:01 40 meq Q1H ARIELLE Administration Sodium Bicarbonate 650 mg 04/15/21 13:00 04/15/21 20:42 Sodium Bicarbonate 650 Mg Tab PO 650 mg BID ARIELLE Administration - Re-Assessments/Exams Free Text/Narrative Re-Assessment/Exam: 04/14/21 22:08 large explosive watery brown stool with rectal exam. no stool in vault, Stool Hemoccult negative. Pain improved. 2250 BS hyperactive, upper quads, distended. mild mid epigastric tenderness with palpation. Departure - Departure Time of Disposition: 23:00 Disposition: Admitted As Inpatient 65 Condition: Fair Clinical Impression: SBO (small bowel obstruction), Hyperglycemia, Hypokalemia Abdominal pain Qualifiers: Abdominal location: generalized Qualified Code(s): R10.84 - Generalized abdominal pain - Discharge Information *PRESCRIPTION DRUG MONITORING PROGRAM REVIEWED*: No *COPY OF PRESCRIPTION DRUG MONITORING REPORT IN PATIENT MALLORY: No Sepsis Event Note (ED) - Evaluation Sepsis Screening Result: No Definite Risk
[2021-04-14] MEDS ORDERED: Sodium Chloride 0.9% 1,000 ML IV ONE (21:36)
[2021-04-14] MEDS ORDERED: Potassium Chloride 10 MEQ in Premix Bag 1 BAG IV ONE (21:36)
--- NOTE | 2021-04-14 22:31 | CT ---
PROCEDURE INFORMATION: Exam: CT Abdomen And Pelvis Without Contrast Exam date and time: 04/14/2021 9:05 PM Age: 75 years old Clinical indication: Nausea and vomiting; Additional info: Pain, nvd, distension TECHNIQUE: Imaging protocol: Computed tomography of the abdomen and pelvis without contrast. Radiation optimization: All CT scans at this facility use at least one of these dose optimization techniques: automated exposure control; mA and/or kV adjustment per patient size (includes targeted exams where dose is matched to clinical indication); or iterative reconstruction. COMPARISON: CT Abdomen Pelvis wo Cont 03/12/2021 12:36 AM FINDINGS: Lungs: There are strandy and patchy opacities in the lung bases bilaterally, left more prominent than right compatible with atelectasis. Bilateral basilar infiltrates and pneumonia cannot be entirely excluded. Pleural spaces: A tiny left pleural effusion is seen. Liver: Normal. No mass. Gallbladder and bile ducts: Calcifications are seen layering within the dependent portion of the gallbladder compatible with gallstones. Pancreas: Normal. No ductal dilation. Spleen: Normal. No splenomegaly. Adrenal glands: Normal. No mass. Kidneys and ureters: Patient is status post a left percutaneous nephrostomy. Catheter appears unchanged in position compared with 03/12/2020. Some gas densities persist within the left renal pelvis. There are some hazy opacity seen surrounding the renal calices and renal pelvis on the left likely representing mild inflammatory changes. Stomach and bowel: Dilated small bowel loops containing fluid and air fluid levels are seen with less dilated small bowel loops present distally, findings that could represent partial small bowel obstruction. Air-fluid levels are seen within the colon as well and fluid-filled rectal vault is seen. Diffuse large and small bowel enteritis is another possibility. Appendix: The appendix is visualized and is normal configuration. Intraperitoneal space: A trace volume of ascites is seen adjacent to the liver tip within the right pericolic gutter. Vasculature: Prominent calcifications are seen within the coronary arteries. Calcifications are present within the thoracic and abdominal aorta, iliac arteries and femoral arteries bilaterally as well as within the branches of the celiac, superior and inferior mesenteric arteries and renal arteries. Lymph nodes: Unremarkable. No enlarged lymph nodes. Urinary bladder: Prominent volume air is seen intraluminally within the bladder. This may be secondary to prior instrumentation. There is mild bladder wall thickening present. Chronic cystitis could have this appearance. Reproductive: Unremarkable as visualized. Bones/joints: Unremarkable. No acute fracture. Soft tissues: Unremarkable. IMPRESSION: 1. The patient is status post a left percutaneous nephrostomy. There are persistent gas densities present within the left renal pelvis. Hazy opacities surround the renal calices and renal pelvis on the left possibly representing mild inflammatory changes. Pyelonephritis and ureteritis cannot be entirely excluded. 2. Dilated small bowel loops containing fluid and air fluid levels are seen . There is no definite transition although a partial small bowel obstruction cannot be entirely excluded. However, the colon contains fluid and air fluid levels as well and a diffuse small and large bowel enteritis is a possibility. 3. Normal appendix 4. No evidence for ureteral obstruction 5. There is mild bladder wall thickening and moderate intraluminal air present within the bladder possibly secondary to instrumentation although chronic cystitis could have this appearance. 6. Multiple gallstones 7. Strandy and patchy opacities are present the lung bases bilaterally, left prominent than right, likely representing atelectasis although a bilateral basilar pneumonia cannot be entirely excluded. COMMENTS: Consistent with the [employer]'s Incidental Findings Committee white paper (J Am Juany Radiol 2018): Any incidental renal lesion less than 1 cm or classified as too small to characterize, or any incidental cystic renal lesion characterized as simple-appearing, is likely benign. No follow-up imaging is recommended for these lesions per consensus recommendations based on imaging criteria.
--- NOTE | 2021-04-14 23:39 | CR ---
PROCEDURE INFORMATION: Exam: XR Chest Exam date and time: 04/14/2021 11:15 PM Age: 75 years old Clinical indication: Other: Tube placement TECHNIQUE: Imaging protocol: XR of the chest. Views: 1 view. COMPARISON: CR Chest 1V Frontal 10/07/2019 6:03 PM FINDINGS: Tubes, catheters and devices: A nasogastric tube is been placed with its tip coiled in the proximal stomach. The distal tip is near the level the gastroesophageal junction. Percutaneous nephrostomy seen on the left. Lungs: There are strandy opacities present in the lung bases bilaterally compatible with atelectasis although a bilateral basilar pneumonia cannot be excluded. Pleural spaces: Unremarkable. No pleural effusion. No pneumothorax. Heart/Mediastinum: Unremarkable. No cardiomegaly. Bones/joints: Unremarkable. IMPRESSION: 1. Nasogastric tube coiled in the proximal stomach the tip near the gastroesophageal junction. 2. Percutaneous nephrostomy seen on the left. 3. Strandy opacities present lung bases bilaterally likely represents atelectasis although bilateral basilar infiltrates and pneumonia cannot be excluded.
[2021-04-15] MEDS ORDERED: Sodium Chloride 0.9% 10 ML Syringe FLUSH PRN (00:43)
[2021-04-15] MEDS ORDERED: Ondansetron 4 MG/2 ML SDV IVPUSH PRN (00:43)
[2021-04-15] MEDS ORDERED: Acetaminophen 325 MG Tab PO PRN (00:43)
[2021-04-15] MEDS ORDERED: Sodium Chloride 0.9% 1,000 ML IV SCH ×2 (00:45→22:00)
[2021-04-15] MEDS ORDERED: Heparin Sodium 5,000 Units/ML Vial SUBCUT SCH (00:45)
--- NOTE | 2021-04-15 00:57 | PCM.HP ---
H&P History of Present Illness - General Date of Service: 04/15/21 Admit Problem/Dx: Admission Diagnosis/Problem Admission Diagnosis/Problem Small bowel obstruction - History of Present Illness Initial Comments - Free Text/Narative: Patient is a 75-year-old female who presents to plaint of abdominal distention and vomiting. She states she started being unwell approximately 12 hours prior to hospitalization. She does admit to onset of diarrhea. She denies fever, rigors, cough, wheeze, melena, hematochezia. She indicates her last bowel movement was on April 15, 2021 while she was in the emergency department. She presents for further evaluation Abdomen Pain Score (Numeric/FACES): 5 - Related Data Allergies/Adverse Reactions: Allergies Allergy/AdvReac Type Severity Reaction Status Date / Time gemfibrozil [From Lopid] Allergy Cannot Verified 04/14/21 23:59 Remember Penicillins Allergy Rash Verified 04/14/21 23:59 propranolol HCl Allergy Cannot Verified 04/14/21 23:59 [From Inderal LA] Remember codeine AdvReac Irritabilit Verified 04/14/21 23:59 y metformin AdvReac Shaking Verified 04/14/21 23:59 Home Medications: Home Meds Aspirin [Lo-Dose Aspirin EC] 81 mg PO DAILY 11/17/18 [History] Clopidogrel [Plavix] 75 mg PO DAILY 11/17/18 [History] Oxybutynin Chloride [Ditropan Xl] 10 mg PO BEDTIME 11/17/18 [History] Ascorbic Acid 500 mg PO BIDMEALS 12/14/20 [History] Brimonidine Tartrate/Timolol [Combigan 0.2%-0.5% Eye Drops] 1 drop EYERT BID 12/14/20 [History] Lactulose 30 ml PO BID PRN 12/14/20 [History] Omeprazole 20 mg PO DAILY 12/14/20 [History] Bumetanide [Bumex] 1 mg PO DAILY #30 tablet 12/23/20 [Rx] Multivitamin with Minerals [Multiple Vitamin] 1 tab PO WITHBREAKFAST 04/14/21 [History] Potassium Chloride 15 ml PO DAILY 04/14/21 [History] carvediloL [Carvedilol] 6.25 mg PO BIDMEALS 04/14/21 [History] Past Medical History HEENT History: Reports: Cataract, Impaired Vision Other HEENT History: wears glasses Cardiovascular History: Reports: CAD, High Cholesterol, Hypertension, HI, Stents Respiratory History: Reports: None Gastrointestinal History: Reports: Chronic Constipation Genitourinary History: Reports: UTI, Recurrent [employer] History: Reports: Musculoskeletal History: Reports: Osteoarthritis Neurological History: Reports: Neuropathy, Diabetic, Other (See Below) Other Neuro History: 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 Psychiatric History: Reports: None Endocrine/Metabolic History: Reports: Diabetes, Type II Hematologic History: Reports: Anemia, Blood Transfusion(s) Immunologic History: Reports: None Oncologic (Cancer) History: Reports: None Dermatologic History: Reports: None - Infectious Disease History Infectious Disease History: Reports: None - Past Surgical History Head Surgeries/Procedures: Reports: None HEENT Surgical History: Reports: Cataract Surgery Cardiovascular Surgical History: Reports: Coronary Artery Bypass GI Surgical History: Reports: Hernia Repair/Other Female Surgical History: Reports: Other (See Below) Other Female Surgeries/Procedures: bladder surgery Neurological Surgical History: Reports: None Musculoskeletal Surgical History: Reports: Amputation, Other (See Below) Other Musculoskeletal Surgeries/Procedures:: carpal tunnel surgery, amputation December 06 left bka and March 16 right aka Social & Family History - Family History Family Medical History: No Pertinent Family History - Tobacco Use Tobacco Use Status *Q: Never Tobacco User Second Hand Smoke Exposure: No - Caffeine Use Caffeine Use: Reports: Coffee, Soda, Tea - Recreational Drug Use Recreational Drug Use: No - Living Situation & Occupation Living situation: Reports: Occupation: Retired H&P Review of Systems - Review of Systems: Review Of Systems: See Below General: Reports: No Symptoms HEENT: Reports: No Symptoms Pulmonary: Reports: No Symptoms Cardiovascular: Reports: No Symptoms Gastrointestinal: Reports: Abdominal Pain, Diarrhea Genitourinary: Reports: No Symptoms Musculoskeletal: Reports: No Symptoms Skin: Reports: No Symptoms Psychiatric: Reports: No Symptoms Neurological: Reports: No Symptoms Hematologic/Lymphatic: Reports: No Symptoms Immunologic: Reports: No Symptoms Exam - Exam Exam: See Below - Vital Signs Vital Signs: Last Vital Signs Temp 97.0 F 04/14/21 23:44 Pulse 61 04/14/21 23:44 Resp 20 04/14/21 23:44 BP 130/62 04/14/21 23:44 Pulse Ox 100 04/14/21 23:44 Weight: 129 lb 6.4 oz - Exam General: Alert, Oriented, 4 HEENT: PERRLA, Hearing Intact, Mucosa Moist & Bostic, Nares Patent, Normal Nasal Septum, Posterior Pharynx Clear, Conjunctiva Clear, EOMI, EACs Clear, TMs Clear Neck: Supple, Trachea Midline, 2 Lungs: Clear to Auscultation, Normal Respiratory Effort Cardiovascular: Regular Rate, Regular Rhythm GI/Abdominal Exam: Normal Bowel Sounds, Soft, Non-Tender, No Organomegaly, No Distention, No Abnormal Bruit, No Mass, Pelvis Stable Back Exam: Normal Inspection, Full Range of Motion, NT Extremities: Other (Status post bilateral extremity amputation) Peripheral Pulses: 2+: Carotid (L), Carotid (R), Brachial (L), Brachial (R), Radial (L), Radial (R), Femoral (L), Femoral (R), Popliteal (L), Popliteal (R), Posterior Tibial (L), Posterior Tibial (R), Dorsalis Pedis (L), Dorsalis Pedis (R) Skin: Warm, Dry, Intact Neurological: Cranial Nerves Intact Neuro Extensive - Mental Status: Alert, Oriented x3, Normal Mood/Affect, Normal Cognition Neuro Extensive - Motor, Sensory, Reflexes: CN II-XII Intact DTR: 2+: Bicep (L), Bicep (R), Tricep (L), Tricep (R), Patella (L), Patella (R), Achilles (L), Achilles (R) Psychiatric: Alert, Normal Affect, Normal Mood - Patient Data Lab Results Last 24 hrs: Laboratory Results - last 24 hr 04/14/21 04/14/21 04/14/21 Range/Units 19:25 19:25 19:25 WBC 10.9 H (5.0-10.0) 10^3/uL RBC 3.39 L (4.2-5.4) 10^6/uL Hgb 10.3 L (12.0-16.0) g/dL Hct 32.6 L (37.0-47.0) % MCV 96.2 D (80-100) fL MCH 30.4 (27.0-34.0) pg MCHC 31.6 L (33.0-35.0) g/dL Plt Count 394 (150-450) 10^3/uL Neut % (Auto) 84.0 H (42.2-75.2) % Lymph % (Auto) 11.8 L (20.5-50.1) % [place] % (Auto) 3.7 (2-8) % Eos % (Auto) 0.2 L (1.0-3.0) % Baso % (Auto) 0.3 (0.0-1.0) % PT 10.6 (9.0-12.0) SEC INR 1.1 (0.9-1.2) Sodium 145 (136-145) mmol/L Potassium 2.9 L (3.5-5.1) mmol/L Chloride 111 H (98-107) mmol/L Carbon Dioxide 16 L (21-32) mmol/L Anion Gap 20.9 H (7-13) mEq/L BUN 39 H (7-18) mg/dL Creatinine 1.94 H (0.55-1.02) mg/dL Est Cr Clr Drug Dosing TNP Estimated GFR (MDRD) 25 BUN/Creatinine Ratio 20.1 (No establ ref range) Glucose 133 H (70-99) mg/dL Lactic Acid (0.4-2.0) mmol/L Calcium 9.1 (8.5-10.1) mg/dL Magnesium 2.3 (1.8-2.4) mg/dL Total Bilirubin 0.4 (0.2-1.0) mg/dL AST 17 (15-37) U/L ALT 12 L (14-59) U/L Alkaline Phosphatase 106 (46-116) U/L Troponin I High Sens (<=51) pg/mL Total Protein 6.8 (6.4-8.2) g/dL Albumin 2.7 L (3.4-5.0) g/dL Globulin 4.1 Albumin/Globulin Ratio 0.66 Amylase 21 L (25-115) U/L Lipase 69 L (73-393) U/L Urine Color (YELLOW) Urine Appearance (CLEAR) Urine pH (5.0-9.0) Ur Specific [place] (1.005-1.030) Urine Protein (NEGATIVE) Urine Glucose (UA) (NEGATIVE) Urine Ketones (NEGATIVE) Urine Occult Blood (NEGATIVE) Urine Nitrite (NEGATIVE) Urine Bilirubin (NEGATIVE) Urine Urobilinogen (0.2-1.0) mg/dL Ur Leukocyte Esterase (NEGATIVE) Urine RBC /HPF Urine WBC (0-5/HPF) /HPF Ur Epithelial Cells (NOT SEEN) /HPF Urine Bacteria (0-FEW/HPF) /HPF SARS-CoV-2 RNA (CATA) (NEGATIVE) 04/14/21 04/14/21 04/14/21 Range/Units 19:25 19:25 21:41 WBC (5.0-10.0) 10^3/uL RBC (4.2-5.4) 10^6/uL Hgb (12.0-16.0) g/dL Hct (37.0-47.0) % MCV (80-100) fL MCH (27.0-34.0) pg MCHC (33.0-35.0) g/dL Plt Count (150-450) 10^3/uL Neut % (Auto) (42.2-75.2) % Lymph % (Auto) (20.5-50.1) % [place] % (Auto) (2-8) % Eos % (Auto) (1.0-3.0) % Baso % (Auto) (0.0-1.0) % PT (9.0-12.0) SEC INR (0.9-1.2) Sodium (136-145) mmol/L Potassium (3.5-5.1) mmol/L Chloride (98-107) mmol/L Carbon Dioxide (21-32) mmol/L Anion Gap (7-13) mEq/L BUN (7-18) mg/dL Creatinine (0.55-1.02) mg/dL Est Cr Clr Drug Dosing Estimated GFR (MDRD) BUN/Creatinine Ratio (No establ ref range) Glucose (70-99) mg/dL Lactic Acid 0.6 (0.4-2.0) mmol/L Calcium (8.5-10.1) mg/dL Magnesium (1.8-2.4) mg/dL Total Bilirubin (0.2-1.0) mg/dL AST (15-37) U/L ALT (14-59) U/L Alkaline Phosphatase (46-116) U/L Troponin I High Sens 22 (<=51) pg/mL Total Protein (6.4-8.2) g/dL Albumin (3.4-5.0) g/dL Globulin Albumin/Globulin Ratio Amylase (25-115) U/L Lipase (73-393) U/L Urine Color Yellow (YELLOW) Urine Appearance Turbid (CLEAR) Urine pH 5.5 (5.0-9.0) Ur Specific [place] >= 1.030 (1.005-1.030) Urine Protein 100 H (NEGATIVE) Urine Glucose (UA) Negative (NEGATIVE) Urine Ketones Negative (NEGATIVE) Urine Occult Blood Trace-intact H (NEGATIVE) Urine Nitrite Negative (NEGATIVE) Urine Bilirubin Negative (NEGATIVE) Urine Urobilinogen 0.2 (0.2-1.0) mg/dL Ur Leukocyte Esterase Large H (NEGATIVE) Urine RBC Not seen /HPF Urine WBC Packed H (0-5/HPF) /HPF Ur Epithelial Cells Occasional (NOT SEEN) /HPF Urine Bacteria Many H (0-FEW/HPF) /HPF SARS-CoV-2 RNA (CATA) (NEGATIVE) 04/14/21 Range/Units 22:48 WBC (5.0-10.0) 10^3/uL RBC (4.2-5.4) 10^6/uL Hgb (12.0-16.0) g/dL Hct (37.0-47.0) % MCV (80-100) fL MCH (27.0-34.0) pg MCHC (33.0-35.0) g/dL Plt Count (150-450) 10^3/uL Neut % (Auto) (42.2-75.2) % Lymph % (Auto) (20.5-50.1) % [place] % (Auto) (2-8) % Eos % (Auto) (1.0-3.0) % Baso % (Auto) (0.0-1.0) % PT (9.0-12.0) SEC INR (0.9-1.2) Sodium (136-145) mmol/L Potassium (3.5-5.1) mmol/L Chloride (98-107) mmol/L Carbon Dioxide (21-32) mmol/L Anion Gap (7-13) mEq/L BUN (7-18) mg/dL Creatinine (0.55-1.02) mg/dL Est Cr Clr Drug Dosing Estimated GFR (MDRD) BUN/Creatinine Ratio (No establ ref range) Glucose (70-99) mg/dL Lactic Acid (0.4-2.0) mmol/L Calcium (8.5-10.1) mg/dL Magnesium (1.8-2.4) mg/dL Total Bilirubin (0.2-1.0) mg/dL AST (15-37) U/L ALT (14-59) U/L Alkaline Phosphatase (46-116) U/L Troponin I High Sens (<=51) pg/mL Total Protein (6.4-8.2) g/dL Albumin (3.4-5.0) g/dL Globulin Albumin/Globulin Ratio Amylase (25-115) U/L Lipase (73-393) U/L Urine Color (YELLOW) Urine Appearance (CLEAR) Urine pH (5.0-9.0) Ur Specific [place] (1.005-1.030) Urine Protein (NEGATIVE) Urine Glucose (UA) (NEGATIVE) Urine Ketones (NEGATIVE) Urine Occult Blood (NEGATIVE) Urine Nitrite (NEGATIVE) Urine Bilirubin (NEGATIVE) Urine Urobilinogen (0.2-1.0) mg/dL Ur Leukocyte Esterase (NEGATIVE) Urine RBC /HPF Urine WBC (0-5/HPF) /HPF Ur Epithelial Cells (NOT SEEN) /HPF Urine Bacteria (0-FEW/HPF) /HPF SARS-CoV-2 RNA (CATA) Negative (NEGATIVE) Result Diagrams: 04/14/21 19:25 04/14/21 19:25 Siddharth Results Last 24 hrs: Microbiology 04/14/21 20:15 Stool Occult Blood (SIDDHARTH) - Final Stool / Feces NEGATIVE OCCULT BLOOD REFERENCE RANGE: NEGATIVE 04/14/21 19:25 Anaerobic Blood Culture - Final Blood - Arm, Left Problem List Initiated/Reviewed/Updated: Yes Orders Last 24hrs: Active Orders 24 hr Category Date Time Status Admission Diagnosis [ADT] Stat ADT 04/14/21 23:07 Ordered Admission Status [Patient Status] [ADT] Stat ADT 04/14/21 23:07 Active Blood Glucose Check, Bedside [RC] Q1H Care 04/15/21 00:43 Ordered Communication Order [RC] 08,20 Care 04/15/21 00:50 Ordered Gastrointestinal Tube Mgmt [RC] ASDIRECTED Care 04/14/21 23:04 Active Nasogastric Tube Management [Gastrointestinal Tube Mgmt Care 04/15/21 00:46 Ordered ] [RC] ASDIRECTED Peripheral IV Care [RC] . DIRECTED Care 04/15/21 00:44 Ordered Up to Chair [RC] ASDIRECTED Care 04/15/21 00:43 Ordered Vital Signs [RC] Q4H Care 04/15/21 00:43 Ordered Nothing per Oral Now Diet [DIET] Diet 04/15/21 Breakfast Ordered Abdomen 1V Upright [CR] Stat Exams 04/14/21 23:04 Ordered Chest 1V Frontal [CR] Stat Exams 04/14/21 23:04 Ordered B-HYDROXYBUTYRATE [REF] Routine Lab 04/15/21 00:49 Ordered CBC WITH AUTO DIFF [HEME] Routine Lab 04/15/21 05:00 Ordered COMPREHENSIVE METABOLIC PN,CMP [CHEM] Routine Lab 04/15/21 05:00 Ordered CULTURE BLOOD [BC] Stat Lab 04/14/21 19:25 Results CULTURE URINE [RM] Stat Lab 04/14/21 21:41 Received FERRITIN [CHEM] Routine Lab 04/15/21 00:48 Ordered IRON/TIBC [CHEM] Routine Lab 04/15/21 00:48 Ordered KETONES,BLOOD [CHEM] Routine Lab 04/15/21 00:49 Ordered Acetaminophen [TylenoL] Med 04/15/21 00:43 Ordered 650 mg PO Q4H PRN Docusate Sodium/Sennosides [Senna Plus] Med 04/15/21 01:00 Ordered 2 tab PO BID Heparin Sodium Med 04/15/21 00:45 Ordered 5,000 units SUBCUT Q12H Insulin Regular in 0.9 % NACL [Myxredlin in NS 100 UNIT Med 04/15/21 01:00 Ordered /100 ML] 100 unit in 100 ml IV CONTINUOUS Ondansetron [Zofran] Med 04/15/21 00:43 Ordered 4 mg IVPUSH Q4H PRN Potassium Chloride [KCL in Water 20 MEQ/100 ML] 20 meq Med 04/15/21 01:00 Ordered Premix Bag 1 bag IV Q2H Sodium Chloride 0.9% [Normal Saline] 1,000 ml Med 04/14/21 21:36 Active IV .BOLUS Sodium Chloride 0.9% [Normal Saline] 1,000 ml Med 04/15/21 00:45 Ordered IV ASDIRECTED Sodium Chloride 0.9% [Saline Flush] Med 04/15/21 00:43 Ordered 10 ml FLUSH ASDIRECTED PRN cefTRIAXone [Rocephin] 1 gm Med 04/15/21 01:00 Ordered Sodium Chloride 0.9% [Normal Saline] 50 ml IV Q24H NG [Nasogastric Orogastric Tube Insertion] [OM.PC] Oth 04/14/21 23:04 Ordered Routine Peripheral IV Insertion Adult [OM.PC] Routine Oth 04/15/21 00:43 Ordered Resuscitation Status Routine Resus Stat 04/15/21 00:43 Ordered Medication Orders Acetaminophen (Acetaminophen 325 Mg Tab) 650 mg PO Q4H PRN PRN Reason: Pain (Mild 1-3)/fever Heparin Sodium (Porcine) (Heparin Sodium 5,000 Units/Ml Vial) 5,000 units SUBCUT Q12H ARIELLE Sodium Chloride (Normal Saline) 1,000 mls @ 50 mls/hr IV .BOLUS ONE Stop: 04/15/21 17:35 Last Admin: 04/14/21 21:43 Dose: 50 mls/hr Documented by: WILKJUL Sodium Chloride (Normal Saline) 1,000 mls @ 75 mls/hr IV ASDIRECTED ARIELLE Potassium Chloride 20 meq/ (Premix) 100 mls @ 50 mls/hr IV Q2H ARIELLE Stop: 04/15/21 06:59 Ceftriaxone Sodium 1 gm/ (Sodium Chloride) 50 mls @ 100 mls/hr IV Q24H ARIELLE Insulin Regular in 0.9 % NACL (Myxredlin In Ns 100 Unit/100 Ml) 100 unit in 100 mls @ 2.5 drops/hr IV CONTINUOUS ARIELLE; Protocol Ondansetron HCl (Ondansetron 4 Mg/2 Ml Sdv) 4 mg IVPUSH Q4H PRN PRN Reason: Nausea/Vomiting Senna/Docusate Sodium (Docusate Sodium/Sennosides 50-8.6 Mg Tab) 2 tab PO BID ARIELLE Sodium Chloride (Sodium Chloride 0.9% 10 Ml Syringe) 10 ml FLUSH ASDIRECTED PRN PRN Reason: Keep Vein Open Assessment/Plan Comment:: Surgical History: Previous documentation of herniorrhaphythe patient is uncertain of this, right carpal tunnel surgery, right [id number] amputation, previous documentation of bladder surgery of which the patient is uncertain, CABG, cardiac stent placement, left below-knee amputation, bilateral cataract surgery, cardiac ablation Family History: Cancer, stroke, diabetes, coronary artery disease, hypertension, hyperlipidemia Social History: Tobacco: Never Alcohol: Denies Caffeine: Cola Drugs: Never Allergies: Gemfibrozil, propanolol, codeine, Metformin, penicillin Code Status: Full Assessment / Plan: Query partial small bowel obstruction. N.p.o. Nasogastric tube set to low intermittent suction. IV normal saline 75 mL's per hour. Senna plus: 2 tabs NG twice daily Overactive bladder Chronic kidney disease, baseline creatinine approximately 2. Will monitor c reatinine level intermittently Hypokalemia. Will monitor potassium levels intermittently and supplement as necessary Urinary tract infection. Rocephin 1 g IV daily Glaucoma Cholelithiasis, asymptomatic Anemia. Will monitor hemoglobin level intermittently. Fecal occult blood negative. Check serum ferritin, iron panel CHF, ejection fraction 30 to 35% Moderate mitral regurgitation Pulmonary hypertension Coronary artery disease, status post HI, status post HI, status post CABG Diabetes/DKA. IV normal saline 75 mils per hour plus insulin drip at 2.5 units/h. Check fingerstick glucose hourly. CMP every [address]Mukesh To be notified when serum glucose is less than 110 GERD Hyperlipidemia Hypertension Osteoarthritis Neuropathy History of nephrolithiasis, status post left nephrostomy tube placement History of SVT, status post cardiac ablation Peripheral vascular disease Seasonal allergies Chronic pain DVT prophylaxis. Heparin 5000 units subcutaneously every 12 hours Disposition: Anticipate discharge within 40 hours. At the time of admission, the patient's home medications were pending input into the EMR/DHR system. Once their input, they will be reviewed and reconciled END OF DOCTOR EMAMIS HISTORY AND PHYSICAL / CONSULTATION NOTE
[2021-04-15] MEDS: cefTRIAXone 1 GM in Sodium Chloride 0.9% 50 ML IV SCH (01:18)
[2021-04-15] MEDS: Potassium Chloride 20 MEQ in Premix Bag 1 BAG IV SCH ×5 (01:59→20:02)
[2021-04-15 06:47] LABS: ANION GAP 19.6 mEq/L (7-13)
[2021-04-15] MEDS ORDERED: Sodium Chloride 0.45% 1,000 ML IV SCH (07:45)
--- NOTE | 2021-04-15 07:52 | PCM.PN ---
- General Info Date of Service: 04/15/21 Subjective Update: Patient endorses no complaints at this time. She denies fever, rigors, nausea, vomiting, cough, wheeze, abdominal pain, chest pain, dyspnea, or any other constitutional complaints. She indicates that she had a bowel movement after my encounter with her early this morning. She inquires about being able to drink water. I explained to the patient her current medical condition and plan of care and I have answered all of her questions Functional Status: Reports: Pain Controlled - Review of Systems General: Reports: No Symptoms HEENT: Reports: No Symptoms Pulmonary: Reports: No Symptoms Cardiovascular: Reports: No Symptoms Gastrointestinal: Reports: No Symptoms Genitourinary: Reports: No Symptoms Musculoskeletal: Reports: No Symptoms Skin: Reports: No Symptoms Neurological: Reports: No Symptoms Psychiatric: Reports: No Symptoms - Patient Data Vitals - Most Recent: Last Vital Signs Temp 97.5 F 04/15/21 04:00 Pulse 61 04/15/21 04:00 Resp 20 04/15/21 04:00 BP 122/58 L 04/15/21 04:00 Pulse Ox 100 04/15/21 04:00 Weight - Most Recent: 129 lb 6.4 oz I&O - Last 24 Hours: Intake & Output 04/14/21 04/15/21 04/15/21 22:59 06:59 14:59 Output Total 635 Balance -635 Lab Results Last 24 Hours: Laboratory Results - last 24 hr 04/14/21 04/14/21 04/14/21 Range/Units 19:25 19:25 19:25 WBC 10.9 H (5.0-10.0) 10^3/uL RBC 3.39 L (4.2-5.4) 10^6/uL Hgb 10.3 L (12.0-16.0) g/dL Hct 32.6 L (37.0-47.0) % MCV 96.2 D (80-100) fL MCH 30.4 (27.0-34.0) pg MCHC 31.6 L (33.0-35.0) g/dL Plt Count 394 (150-450) 10^3/uL Neut % (Auto) 84.0 H (42.2-75.2) % Lymph % (Auto) 11.8 L (20.5-50.1) % [place] % (Auto) 3.7 (2-8) % Eos % (Auto) 0.2 L (1.0-3.0) % Baso % (Auto) 0.3 (0.0-1.0) % PT 10.6 (9.0-12.0) SEC INR 1.1 (0.9-1.2) Sodium 145 (136-145) mmol/L Potassium 2.9 L (3.5-5.1) mmol/L Chloride 111 H (98-107) mmol/L Carbon Dioxide 16 L (21-32) mmol/L Anion Gap 20.9 H (7-13) mEq/L BUN 39 H (7-18) mg/dL Creatinine 1.94 H (0.55-1.02) mg/dL Est Cr Clr Drug Dosing TNP Estimated GFR (MDRD) 25 BUN/Creatinine Ratio 20.1 (No establ ref range) Glucose 133 H (70-99) mg/dL Lactic Acid (0.4-2.0) mmol/L Calcium 9.1 (8.5-10.1) mg/dL Magnesium 2.3 (1.8-2.4) mg/dL Iron (50-175) ug/dL TIBC (250-450) ug/dL % Saturation (20.0-50.0) % Ferritin (8-252) mg/mL Total Bilirubin 0.4 (0.2-1.0) mg/dL AST 17 (15-37) U/L ALT 12 L (14-59) U/L Alkaline Phosphatase 106 (46-116) U/L Troponin I High Sens (<=51) pg/mL Total Protein 6.8 (6.4-8.2) g/dL Albumin 2.7 L (3.4-5.0) g/dL Globulin 4.1 Albumin/Globulin Ratio 0.66 Amylase 21 L (25-115) U/L Lipase 69 L (73-393) U/L Urine Color (YELLOW) Urine Appearance (CLEAR) Urine pH (5.0-9.0) Ur Specific [place] (1.005-1.030) Urine Protein (NEGATIVE) Urine Glucose (UA) (NEGATIVE) Urine Ketones (NEGATIVE) Urine Occult Blood (NEGATIVE) Urine Nitrite (NEGATIVE) Urine Bilirubin (NEGATIVE) Urine Urobilinogen (0.2-1.0) mg/dL Ur Leukocyte Esterase (NEGATIVE) Urine RBC /HPF Urine WBC (0-5/HPF) /HPF Ur Epithelial Cells (NOT SEEN) /HPF Urine Bacteria (0-FEW/HPF) /HPF Ketones SARS-CoV-2 RNA (CATA) (NEGATIVE) 04/14/21 04/14/21 04/14/21 Range/Units 19:25 19:25 19:25 WBC (5.0-10.0) 10^3/uL RBC (4.2-5.4) 10^6/uL Hgb (12.0-16.0) g/dL Hct (37.0-47.0) % MCV (80-100) fL MCH (27.0-34.0) pg MCHC (33.0-35.0) g/dL Plt Count (150-450) 10^3/uL Neut % (Auto) (42.2-75.2) % Lymph % (Auto) (20.5-50.1) % [place] % (Auto) (2-8) % Eos % (Auto) (1.0-3.0) % Baso % (Auto) (0.0-1.0) % PT (9.0-12.0) SEC INR (0.9-1.2) Sodium (136-145) mmol/L Potassium (3.5-5.1) mmol/L Chloride (98-107) mmol/L Carbon Dioxide (21-32) mmol/L Anion Gap (7-13) mEq/L BUN (7-18) mg/dL Creatinine (0.55-1.02) mg/dL Est Cr Clr Drug Dosing Estimated GFR (MDRD) BUN/Creatinine Ratio (No establ ref range) Glucose (70-99) mg/dL Lactic Acid 0.6 (0.4-2.0) mmol/L Calcium (8.5-10.1) mg/dL Magnesium (1.8-2.4) mg/dL Iron 27 L (50-175) ug/dL TIBC 172 L (250-450) ug/dL % Saturation 15.7 L (20.0-50.0) % Ferritin 981 H (8-252) mg/mL Total Bilirubin (0.2-1.0) mg/dL AST (15-37) U/L ALT (14-59) U/L Alkaline Phosphatase (46-116) U/L Troponin I High Sens 22 (<=51) pg/mL Total Protein (6.4-8.2) g/dL Albumin (3.4-5.0) g/dL Globulin Albumin/Globulin Ratio Amylase (25-115) U/L Lipase (73-393) U/L Urine Color (YELLOW) Urine Appearance (CLEAR) Urine pH (5.0-9.0) Ur Specific [place] (1.005-1.030) Urine Protein (NEGATIVE) Urine Glucose (UA) (NEGATIVE) Urine Ketones (NEGATIVE) Urine Occult Blood (NEGATIVE) Urine Nitrite (NEGATIVE) Urine Bilirubin (NEGATIVE) Urine Urobilinogen (0.2-1.0) mg/dL Ur Leukocyte Esterase (NEGATIVE) Urine RBC /HPF Urine WBC (0-5/HPF) /HPF Ur Epithelial Cells (NOT SEEN) /HPF Urine Bacteria (0-FEW/HPF) /HPF Ketones SARS-CoV-2 RNA (CATA) (NEGATIVE) 04/14/21 04/14/21 04/14/21 Range/Units 19:25 21:41 22:48 WBC (5.0-10.0) 10^3/uL RBC (4.2-5.4) 10^6/uL Hgb (12.0-16.0) g/dL Hct (37.0-47.0) % MCV (80-100) fL MCH (27.0-34.0) pg MCHC (33.0-35.0) g/dL Plt Count (150-450) 10^3/uL Neut % (Auto) (42.2-75.2) % Lymph % (Auto) (20.5-50.1) % [place] % (Auto) (2-8) % Eos % (Auto) (1.0-3.0) % Baso % (Auto) (0.0-1.0) % PT (9.0-12.0) SEC INR (0.9-1.2) Sodium (136-145) mmol/L Potassium (3.5-5.1) mmol/L Chloride (98-107) mmol/L Carbon Dioxide (21-32) mmol/L Anion Gap (7-13) mEq/L BUN (7-18) mg/dL Creatinine (0.55-1.02) mg/dL Est Cr Clr Drug Dosing Estimated GFR (MDRD) BUN/Creatinine Ratio (No establ ref range) Glucose (70-99) mg/dL Lactic Acid (0.4-2.0) mmol/L Calcium (8.5-10.1) mg/dL Magnesium (1.8-2.4) mg/dL Iron (50-175) ug/dL TIBC (250-450) ug/dL % Saturation (20.0-50.0) % Ferritin (8-252) mg/mL Total Bilirubin (0.2-1.0) mg/dL AST (15-37) U/L ALT (14-59) U/L Alkaline Phosphatase (46-116) U/L Troponin I High Sens (<=51) pg/mL Total Protein (6.4-8.2) g/dL Albumin (3.4-5.0) g/dL Globulin Albumin/Globulin Ratio Amylase (25-115) U/L Lipase (73-393) U/L Urine Color Yellow (YELLOW) Urine Appearance Turbid (CLEAR) Urine pH 5.5 (5.0-9.0) Ur Specific [place] >= 1.030 (1.005-1.030) Urine Protein 100 H (NEGATIVE) Urine Glucose (UA) Negative (NEGATIVE) Urine Ketones Negative (NEGATIVE) Urine Occult Blood Trace-intact H (NEGATIVE) Urine Nitrite Negative (NEGATIVE) Urine Bilirubin Negative (NEGATIVE) Urine Urobilinogen 0.2 (0.2-1.0) mg/dL Ur Leukocyte Esterase Large H (NEGATIVE) Urine RBC Not seen /HPF Urine WBC Packed H (0-5/HPF) /HPF Ur Epithelial Cells Occasional (NOT SEEN) /HPF Urine Bacteria Many H (0-FEW/HPF) /HPF Ketones Small-20 mg/dl SARS-CoV-2 RNA (CATA) Negative (NEGATIVE) 04/15/21 04/15/21 Range/Units 06:20 06:20 WBC 12.4 H (5.0-10.0) 10^3/uL RBC 3.11 L (4.2-5.4) 10^6/uL Hgb 9.6 L (12.0-16.0) g/dL Hct 29.8 L (37.0-47.0) % MCV 95.8 (80-100) fL MCH 30.9 (27.0-34.0) pg MCHC 32.2 L (33.0-35.0) g/dL Plt Count 346 (150-450) 10^3/uL Neut % (Auto) 78.7 H (42.2-75.2) % Lymph % (Auto) 10.4 L (20.5-50.1) % [place] % (Auto) 10.3 H (2-8) % Eos % (Auto) 0.3 L (1.0-3.0) % Baso % (Auto) 0.3 (0.0-1.0) % PT (9.0-12.0) SEC INR (0.9-1.2) Sodium 146 H (136-145) mmol/L Potassium 3.6 (3.5-5.1) mmol/L Chloride 114 H (98-107) mmol/L Carbon Dioxide 16 L (21-32) mmol/L Anion Gap 19.6 H (7-13) mEq/L BUN 40 H (7-18) mg/dL Creatinine 1.94 H (0.55-1.02) mg/dL Est Cr Clr Drug Dosing 20.41 Estimated GFR (MDRD) 25 BUN/Creatinine Ratio 20.6 (No establ ref range) Glucose 81 (70-99) mg/dL Lactic Acid (0.4-2.0) mmol/L Calcium 8.4 L (8.5-10.1) mg/dL Magnesium (1.8-2.4) mg/dL Iron (50-175) ug/dL TIBC (250-450) ug/dL % Saturation (20.0-50.0) % Ferritin (8-252) mg/mL Total Bilirubin 0.3 (0.2-1.0) mg/dL AST 15 (15-37) U/L ALT 12 L (14-59) U/L Alkaline Phosphatase 90 (46-116) U/L Troponin I High Sens (<=51) pg/mL Total Protein 5.8 L (6.4-8.2) g/dL Albumin 2.1 L (3.4-5.0) g/dL Globulin 3.7 Albumin/Globulin Ratio 0.57 Amylase (25-115) U/L Lipase (73-393) U/L Urine Color (YELLOW) Urine Appearance (CLEAR) Urine pH (5.0-9.0) Ur Specific [place] (1.005-1.030) Urine Protein (NEGATIVE) Urine Glucose (UA) (NEGATIVE) Urine Ketones (NEGATIVE) Urine Occult Blood (NEGATIVE) Urine Nitrite (NEGATIVE) Urine Bilirubin (NEGATIVE) Urine Urobilinogen (0.2-1.0) mg/dL Ur Leukocyte Esterase (NEGATIVE) Urine RBC /HPF Urine WBC (0-5/HPF) /HPF Ur Epithelial Cells (NOT SEEN) /HPF Urine Bacteria (0-FEW/HPF) /HPF Ketones SARS-CoV-2 RNA (CATA) (NEGATIVE) Siddharth Results Last 24 Hours: Microbiology 04/14/21 20:15 Stool Occult Blood (SIDDHARTH) - Final Stool / Feces NEGATIVE OCCULT BLOOD REFERENCE RANGE: NEGATIVE 04/14/21 19:25 Anaerobic Blood Culture - Final Blood - Arm, Left Med Orders - Current: Current Medications Acetaminophen (Acetaminophen 325 Mg Tab) 650 mg PO Q4H PRN PRN Reason: Pain (Mild 1-3)/fever Aspirin (Aspirin 81 Mg Tab.Ec) 81 mg PO DAILY ARIELLE Clopidogrel Bisulfate (Clopidogrel 75 Mg Tab) 75 mg PO DAILY ARIELLE Heparin Sodium (Porcine) (Heparin Sodium 5,000 Units/Ml Vial) 5,000 units SUBCUT Q12H ARIELLE Sodium Chloride (Normal Saline) 1,000 mls @ 50 mls/hr IV .BOLUS ONE Stop: 04/15/21 17:35 Last Infusion: 04/15/21 01:11 Dose: 75 mls/hr Documented by: Ceftriaxone Sodium 1 gm/ (Sodium Chloride) 50 mls @ 100 mls/hr IV Q24H ARIELLE Last Admin: 04/15/21 01:18 Dose: 100 mls/hr Documented by: Sodium Chloride (Sodium Chloride 0.45%) 1,000 mls @ 50 mls/hr IV ASDIRECTED [facility] Insulin Regular in 0.9 % NACL (Myxredlin In Ns 100 Unit/100 Ml) 100 unit in 100 mls @ 2.5 mls/hr IV CONTINUOUS ARIELLE; Protocol Non-Formulary Medication (Brimonidine Tartrate/Timolol [Combigan 0.2%-0.5% Eye Drops]) 1 drop EYERT BID ARIELLE Non-Formulary Medication (Carvedilol [Carvedilol]) 6.25 mg PO BIDMEALS [facility] Non-Formulary Medication (Oxybutynin Chloride [Ditropan Xl]) 10 mg PO BEDTIME [facility] Omeprazole (Omeprazole 20 Mg Cap.Cr) 20 mg PO DAILY [facility] Ondansetron HCl (Ondansetron 4 Mg/2 Ml Sdv) 4 mg IVPUSH Q4H PRN PRN Reason: Nausea/Vomiting Senna/Docusate Sodium (Docusate Sodium/Sennosides 50-8.6 Mg Tab) 2 tab PO BID [facility] Last Admin: 04/15/21 01:22 Dose: Not Given Documented by: Sodium Chloride (Sodium Chloride 0.9% 10 Ml Syringe) 10 ml FLUSH ASDIRECTED PRN PRN Reason: Keep Vein Open Discontinued Medications Heparin Sodium (Porcine) (Heparin Sodium 5,000 Units/Ml Vial) 5,000 units SUBCUT Q12H [facility] Last Admin: 04/15/21 02:10 Dose: Not Given Documented by: Potassium Chloride 10 meq/ (Premix) 100 mls @ 100 mls/hr IV ONETIME ONE Stop: 04/14/21 22:35 Last Admin: 04/14/21 21:44 Dose: 100 mls/hr Documented by: Sodium Chloride (Normal Saline) 1,000 mls @ 75 mls/hr IV ASDIRECTED ARIELLE Potassium Chloride 20 meq/ (Premix) 100 mls @ 50 mls/hr IV Q2H [facility] Stop: 04/15/21 06:59 Last Admin: 04/15/21 06:06 Dose: 50 mls/hr Documented by: Insulin Regular in 0.9 % NACL (Myxredlin In Ns 100 Unit/100 Ml) 100 unit in 100 mls @ 2.5 drops/hr IV CONTINUOUS [facility]; Protocol Ondansetron HCl (Ondansetron 4 Mg/2 Ml Sdv) 4 mg IVPUSH ONETIME ONE Stop: 04/14/21 20:27 Last Admin: 04/14/21 20:40 Dose: 4 mg Documented by: Pantoprazole Sodium (Pantoprazole 40 Mg Vial) 40 mg IVPUSH ONETIME ONE Stop: 04/14/21 20:27 Last Admin: 04/14/21 20:43 Dose: 40 mg Documented by: - Exam General: Alert, Oriented HEENT: Pupils Equal, Pupils Reactive, EOMI, Mucous Membr. Moist/[place] Neck: Supple Lungs: Clear to Auscultation, Normal Respiratory Effort Cardiovascular: Regular Rate, Regular Rhythm GI/Abdominal Exam: Normal Bowel Sounds, Soft, Non-Tender, No Organomegaly, No Distention, No Abnormal Bruit, No Mass, Pelvis Stable Back Exam: Normal Inspection, Full Range of Motion Extremities: Normal Inspection, Normal Range of Motion, Non-Tender, No Pedal Edema, Normal Capillary Refill, Other (Patient status post bilateral lower extremity amputation) Peripheral Pulses: 2+: Carotid (L), Carotid (R), Brachial (L), Brachial (R), Radial (L), Radial (R), Femoral (L), Femoral (R) Skin: Warm, Dry, Intact Wound/Incisions: Healing Well Neurological: No New Focal Deficit Psy/Mental Status: Alert, Normal Affect, Normal Mood - Patient Data Lab Results Last 24 hrs: Laboratory Results - last 24 hr 04/14/21 04/14/21 04/14/21 Range/Units 19:25 19:25 19:25 WBC 10.9 H (5.0-10.0) 10^3/uL RBC 3.39 L (4.2-5.4) 10^6/uL Hgb 10.3 L (12.0-16.0) g/dL Hct 32.6 L (37.0-47.0) % MCV 96.2 D (80-100) fL MCH 30.4 (27.0-34.0) pg MCHC 31.6 L (33.0-35.0) g/dL Plt Count 394 (150-450) 10^3/uL Neut % (Auto) 84.0 H (42.2-75.2) % Lymph % (Auto) 11.8 L (20.5-50.1) % [place] % (Auto) 3.7 (2-8) % Eos % (Auto) 0.2 L (1.0-3.0) % Baso % (Auto) 0.3 (0.0-1.0) % PT 10.6 (9.0-12.0) SEC INR 1.1 (0.9-1.2) Sodium 145 (136-145) mmol/L Potassium 2.9 L (3.5-5.1) mmol/L Chloride 111 H (98-107) mmol/L Carbon Dioxide 16 L (21-32) mmol/L Anion Gap 20.9 H (7-13) mEq/L BUN 39 H (7-18) mg/dL Creatinine 1.94 H (0.55-1.02) mg/dL Est Cr Clr Drug Dosing TNP Estimated GFR (MDRD) 25 BUN/Creatinine Ratio 20.1 (No establ ref range) Glucose 133 H (70-99) mg/dL Lactic Acid (0.4-2.0) mmol/L Calcium 9.1 (8.5-10.1) mg/dL Magnesium 2.3 (1.8-2.4) mg/dL Iron (50-175) ug/dL TIBC (250-450) ug/dL % Saturation (20.0-50.0) % Ferritin (8-252) mg/mL Total Bilirubin 0.4 (0.2-1.0) mg/dL AST 17 (15-37) U/L ALT 12 L (14-59) U/L Alkaline Phosphatase 106 (46-116) U/L Troponin I High Sens (<=51) pg/mL Total Protein 6.8 (6.4-8.2) g/dL Albumin 2.7 L (3.4-5.0) g/dL Globulin 4.1 Albumin/Globulin Ratio 0.66 Amylase 21 L (25-115) U/L Lipase 69 L (73-393) U/L Urine Color (YELLOW) Urine Appearance (CLEAR) Urine pH (5.0-9.0) Ur Specific [place] (1.005-1.030) Urine Protein (NEGATIVE) Urine Glucose (UA) (NEGATIVE) Urine Ketones (NEGATIVE) Urine Occult Blood (NEGATIVE) Urine Nitrite (NEGATIVE) Urine Bilirubin (NEGATIVE) Urine Urobilinogen (0.2-1.0) mg/dL Ur Leukocyte Esterase (NEGATIVE) Urine RBC /HPF Urine WBC (0-5/HPF) /HPF Ur Epithelial Cells (NOT SEEN) /HPF Urine Bacteria (0-FEW/HPF) /HPF Ketones SARS-CoV-2 RNA (CATA) (NEGATIVE) 04/14/21 04/14/21 04/14/21 Range/Units 19:25 19:25 19:25 WBC (5.0-10.0) 10^3/uL RBC (4.2-5.4) 10^6/uL Hgb (12.0-16.0) g/dL Hct (37.0-47.0) % MCV (80-100) fL MCH (27.0-34.0) pg MCHC (33.0-35.0) g/dL Plt Count (150-450) 10^3/uL Neut % (Auto) (42.2-75.2) % Lymph % (Auto) (20.5-50.1) % [place] % (Auto) (2-8) % Eos % (Auto) (1.0-3.0) % Baso % (Auto) (0.0-1.0) % PT (9.0-12.0) SEC INR (0.9-1.2) Sodium (136-145) mmol/L Potassium (3.5-5.1) mmol/L Chloride (98-107) mmol/L Carbon Dioxide (21-32) mmol/L Anion Gap (7-13) mEq/L BUN (7-18) mg/dL Creatinine (0.55-1.02) mg/dL Est Cr Clr Drug Dosing Estimated GFR (MDRD) BUN/Creatinine Ratio (No establ ref range) Glucose (70-99) mg/dL Lactic Acid 0.6 (0.4-2.0) mmol/L Calcium (8.5-10.1) mg/dL Magnesium (1.8-2.4) mg/dL Iron 27 L (50-175) ug/dL TIBC 172 L (250-450) ug/dL % Saturation 15.7 L (20.0-50.0) % Ferritin 981 H (8-252) mg/mL Total Bilirubin (0.2-1.0) mg/dL AST (15-37) U/L ALT (14-59) U/L Alkaline Phosphatase (46-116) U/L Troponin I High Sens 22 (<=51) pg/mL Total Protein (6.4-8.2) g/dL Albumin (3.4-5.0) g/dL Globulin Albumin/Globulin Ratio Amylase (25-115) U/L Lipase (73-393) U/L Urine Color (YELLOW) Urine Appearance (CLEAR) Urine pH (5.0-9.0) Ur Specific [place] (1.005-1.030) Urine Protein (NEGATIVE) Urine Glucose (UA) (NEGATIVE) Urine Ketones (NEGATIVE) Urine Occult Blood (NEGATIVE) Urine Nitrite (NEGATIVE) Urine Bilirubin (NEGATIVE) Urine Urobilinogen (0.2-1.0) mg/dL Ur Leukocyte Esterase (NEGATIVE) Urine RBC /HPF Urine WBC (0-5/HPF) /HPF Ur Epithelial Cells (NOT SEEN) /HPF Urine Bacteria (0-FEW/HPF) /HPF Ketones SARS-CoV-2 RNA (CATA) (NEGATIVE) 04/14/21 04/14/21 04/14/21 Range/Units 19:25 21:41 22:48 WBC (5.0-10.0) 10^3/uL RBC (4.2-5.4) 10^6/uL Hgb (12.0-16.0) g/dL Hct (37.0-47.0) % MCV (80-100) fL MCH (27.0-34.0) pg MCHC (33.0-35.0) g/dL Plt Count (150-450) 10^3/uL Neut % (Auto) (42.2-75.2) % Lymph % (Auto) (20.5-50.1) % [place] % (Auto) (2-8) % Eos % (Auto) (1.0-3.0) % Baso % (Auto) (0.0-1.0) % PT (9.0-12.0) SEC INR (0.9-1.2) Sodium (136-145) mmol/L Potassium (3.5-5.1) mmol/L Chloride (98-107) mmol/L Carbon Dioxide (21-32) mmol/L Anion Gap (7-13) mEq/L BUN (7-18) mg/dL Creatinine (0.55-1.02) mg/dL Est Cr Clr Drug Dosing Estimated GFR (MDRD) BUN/Creatinine Ratio (No establ ref range) Glucose (70-99) mg/dL Lactic Acid (0.4-2.0) mmol/L Calcium (8.5-10.1) mg/dL Magnesium (1.8-2.4) mg/dL Iron (50-175) ug/dL TIBC (250-450) ug/dL % Saturation (20.0-50.0) % Ferritin (8-252) mg/mL Total Bilirubin (0.2-1.0) mg/dL AST (15-37) U/L ALT (14-59) U/L Alkaline Phosphatase (46-116) U/L Troponin I High Sens (<=51) pg/mL Total Protein (6.4-8.2) g/dL Albumin (3.4-5.0) g/dL Globulin Albumin/Globulin Ratio Amylase (25-115) U/L Lipase (73-393) U/L Urine Color Yellow (YELLOW) Urine Appearance Turbid (CLEAR) Urine pH 5.5 (5.0-9.0) Ur Specific [place] >= 1.030 (1.005-1.030) Urine Protein 100 H (NEGATIVE) Urine Glucose (UA) Negative (NEGATIVE) Urine Ketones Negative (NEGATIVE) Urine Occult Blood Trace-intact H (NEGATIVE) Urine Nitrite Negative (NEGATIVE) Urine Bilirubin Negative (NEGATIVE) Urine Urobilinogen 0.2 (0.2-1.0) mg/dL Ur Leukocyte Esterase Large H (NEGATIVE) Urine RBC Not seen /HPF Urine WBC Packed H (0-5/HPF) /HPF Ur Epithelial Cells Occasional (NOT SEEN) /HPF Urine Bacteria Many H (0-FEW/HPF) /HPF Ketones Small-20 mg/dl SARS-CoV-2 RNA (CATA) Negative (NEGATIVE) 04/15/21 04/15/21 Range/Units 06:20 06:20 WBC 12.4 H (5.0-10.0) 10^3/uL RBC 3.11 L (4.2-5.4) 10^6/uL Hgb 9.6 L (12.0-16.0) g/dL Hct 29.8 L (37.0-47.0) % MCV 95.8 (80-100) fL MCH 30.9 (27.0-34.0) pg MCHC 32.2 L (33.0-35.0) g/dL Plt Count 346 (150-450) 10^3/uL Neut % (Auto) 78.7 H (42.2-75.2) % Lymph % (Auto) 10.4 L (20.5-50.1) % [place] % (Auto) 10.3 H (2-8) % Eos % (Auto) 0.3 L (1.0-3.0) % Baso % (Auto) 0.3 (0.0-1.0) % PT (9.0-12.0) SEC INR (0.9-1.2) Sodium 146 H (136-145) mmol/L Potassium 3.6 (3.5-5.1) mmol/L Chloride 114 H (98-107) mmol/L Carbon Dioxide 16 L (21-32) mmol/L Anion Gap 19.6 H (7-13) mEq/L BUN 40 H (7-18) mg/dL Creatinine 1.94 H (0.55-1.02) mg/dL Est Cr Clr Drug Dosing 20.41 Estimated GFR (MDRD) 25 BUN/Creatinine Ratio 20.6 (No establ ref range) Glucose 81 (70-99) mg/dL Lactic Acid (0.4-2.0) mmol/L Calcium 8.4 L (8.5-10.1) mg/dL Magnesium (1.8-2.4) mg/dL Iron (50-175) ug/dL TIBC (250-450) ug/dL % Saturation (20.0-50.0) % Ferritin (8-252) mg/mL Total Bilirubin 0.3 (0.2-1.0) mg/dL AST 15 (15-37) U/L ALT 12 L (14-59) U/L Alkaline Phosphatase 90 (46-116) U/L Troponin I High Sens (<=51) pg/mL Total Protein 5.8 L (6.4-8.2) g/dL Albumin 2.1 L (3.4-5.0) g/dL Globulin 3.7 Albumin/Globulin Ratio 0.57 Amylase (25-115) U/L Lipase (73-393) U/L Urine Color (YELLOW) Urine Appearance (CLEAR) Urine pH (5.0-9.0) Ur Specific [place] (1.005-1.030) Urine Protein (NEGATIVE) Urine Glucose (UA) (NEGATIVE) Urine Ketones (NEGATIVE) Urine Occult Blood (NEGATIVE) Urine Nitrite (NEGATIVE) Urine Bilirubin (NEGATIVE) Urine Urobilinogen (0.2-1.0) mg/dL Ur Leukocyte Esterase (NEGATIVE) Urine RBC /HPF Urine WBC (0-5/HPF) /HPF Ur Epithelial Cells (NOT SEEN) /HPF Urine Bacteria (0-FEW/HPF) /HPF Ketones SARS-CoV-2 RNA (CATA) (NEGATIVE) Result Diagrams: 04/15/21 06:20 04/15/21 06:20 Siddharth Results Last 24 hrs: Microbiology 04/14/21 20:15 Stool Occult Blood (SIDDHARTH) - Final Stool / Feces NEGATIVE OCCULT BLOOD REFERENCE RANGE: NEGATIVE 04/14/21 19:25 Anaerobic Blood Culture - Final Blood - Arm, Left Sepsis Event Note - Evaluation Sepsis Screening Result: No Definite Risk - Focused Exam Vital Signs: Vital Signs Temp Pulse Pulse Resp BP BP Pulse Ox 04/15/21 04:00 97.5 F 61 20 122/58 L 100 04/14/21 23:44 97.0 F 61 20 130/62 123/47 L 100 04/14/21 21:48 95.9 F L 60 24 H 131/56 L 99 - Problem List Review Problem List Initiated/Reviewed/Updated: Yes - My Orders Last 24 Hours: My Active Orders 04/15/21 00:43 Up to Chair [RC] ASDIRECTED Vital Signs [RC] 00,04,08,12,16,20 Acetaminophen [TylenoL] 650 mg PO Q4H PRN Ondansetron [Zofran] 4 mg IVPUSH Q4H PRN Sodium Chloride 0.9% [Saline Flush] 10 ml FLUSH ASDIRECTED PRN Peripheral IV Insertion Adult [OM.PC] Routine Resuscitation Status Routine 04/15/21 00:44 Peripheral IV Care [RC] 04/15/21 00:46 Nasogastric Tube Management [Gastrointestinal Tube Mgmt] [RC] 04/15/21 00:49 B-HYDROXYBUTYRATE [REF] Routine 04/15/21 01:00 Docusate Sodium/Sennosides [Senna Plus] 2 tab PO BID cefTRIAXone [Rocephin] 1 gm Sodium Chloride 0.9% [Normal Saline] 50 ml IV Q24H 04/15/21 Breakfast Nothing per Oral Now Diet [DIET] 04/15/21 07:41 PHOSPHORUS [CHEM] Routine 04/15/21 07:43 Blood Glucose Check, Bedside [RC] Q1H Communication Order [RC] 04/15/21 07:45 Insulin Regular in 0.9 % NACL [Myxredlin in NS 100 UNIT/100 ML] 100 unit in 100 ml IV CONTINUOUS Sodium Chloride 0.45% 1,000 ml IV ASDIRECTED 04/15/21 08:00 carvediloL [Carvedilol] 6.25 mg PO BIDMEALS 04/15/21 09:00 Aspirin [Halfprin] 81 mg PO DAILY Brimonidine Tartrate/Timolol [Combigan 0.2%-0.5% Eye Drops] 1 drop EYERT BID Clopidogrel [Plavix] 75 mg PO DAILY Heparin Sodium 5,000 units SUBCUT Q12H Omeprazole 20 mg PO DAILY 04/15/21 12:00 BASIC METABOLIC PANEL,BMP [CHEM] Routine 04/15/21 21:00 Oxybutynin Chloride [Ditropan Xl] 10 mg PO BEDTIME 04/16/21 05:00 BASIC METABOLIC PANEL,BMP [CHEM] Routine CBC WITH AUTO DIFF [HEME] Routine - Plan Plan:: Surgical History: Previous documentation of herniorrhaphythe patient is uncertain of this, right carpal tunnel surgery, right [id number] amputation, previous documentation of bladder surgery of which the patient is uncertain, CABG, cardiac stent placement, left below-knee amputation, bilateral cataract surgery, cardiac ablation Family History: Cancer, stroke, diabetes, coronary artery disease, hypertension, hyperlipidemia Social History: Tobacco: Never Alcohol: Denies Caffeine: Cola Drugs: Never Allergies: Gemfibrozil, propanolol, codeine, Metformin, penicillin Code Status: Full Assessment / Plan: Query partial small bowel obstruction. N.p.o. Nasogastric tube set to low intermittent suction. IV half-normal saline at 50 mils per hour. Senna plus: 2 tabs NG twice daily Hypernatremia. Will monitor sodium levels intermittently Overactive bladder. Ditropan XL 10 mg p.o. nightly Chronic kidney disease, baseline creatinine approximately 2. Will monitor creatinine level intermittently Hypokalemia. Will monitor potassium levels intermittently and supplement as necessary Urinary tract infection. Rocephin 1 g IV daily Glaucoma. Combigan 0.2% / 0.5%: 1 drop in both eyes twice daily Cholelithiasis, asymptomatic Anemia of chronic disease. Will monitor hemoglobin level intermittently. CHF, ejection fraction 30 to 35%. Coreg 6.25 mg p.o. twice daily Moderate mitral regurgitation Pulmonary hypertension Coronary artery disease, status post MN, status post MN, status post CABG. Coreg 6.25 mg p.o. twice daily plus aspirin 81 mg p.o. daily plus Plavix 75 mg p.o. daily Diabetes/DKA. IV normal saline 75 mils per hour plus insulin drip at 2.5 units/h. Check fingerstick glucose hourly. CMP every [address] To be notified when serum glucose is less than 110 GERD. Prilosec 20 mg p.o. daily Hyperlipidemia Hypertension. Coreg 6.25 mg p.o. twice daily Osteoarthritis Neuropathy History of nephrolithiasis, status post left nephrostomy tube placement History of SVT, status post cardiac ablation. Coreg 6.25 mg p.o. twice daily Peripheral vascular disease. Aspirin 81 mg p.o. daily plus Plavix 75 mg p.o. daily Seasonal allergies Chronic pain DVT prophylaxis. Heparin 5000 units subcutaneously every 12 hours Disposition: Anticipate discharge within 24 hours END OF DOCTOR EMAMIS HISTORY AND PHYSICAL / CONSULTATION NOTE
[2021-04-15] MEDS: Dextrose 5%-0.45% NaCl 1,000 ML IV SCH ×2 (08:11→20:41)
[2021-04-15] MEDS: Aspirin 81 MG Tab.EC PO SCH (08:19)
[2021-04-15] MEDS: Clopidogrel 75 MG Tab PO SCH (08:21)
[2021-04-15] MEDS: Carvedilol 6.25 MG Tab PO SCH ×2 (08:21→17:33)
[2021-04-15] MEDS: Heparin Sodium 5,000 Units/ML Vial SUBCUT SCH ×2 (08:22→20:43)
[2021-04-15] MEDS: Omeprazole 20 MG Cap.CR PO SCH (08:22)
[2021-04-15] MEDS ORDERED: 50% Dextrose in Water 50 ML Syringe IVPUSH ONE ×2 (08:29→21:23)
[2021-04-15 12:24] LABS: ANION GAP 20.1 mEq/L (7-13)
[2021-04-15] MEDS: Sodium Bicarbonate 650 MG Tab PO SCH ×2 (13:47→20:42)
[2021-04-15] MEDS: Potassium Chloride 10 MEQ Tab.ER PO SCH ×3 (13:47→18:19)
[2021-04-15 16:38] LABS: ANION GAP 18.3 mEq/L (7-13)
[2021-04-15] MEDS ORDERED: Potassium Chloride 10 MEQ Tab.ER PO SCH (18:00)
[2021-04-15] MEDS: TIMOLOL EYELF SCH (20:44)
[2021-04-15] MEDS: EYE EYELF SCH (20:44)
[2021-04-15] MEDS: BRIMONIDINE TARTRATE EYELF SCH (20:44)
[2021-04-15] MEDS ORDERED: Oxybutynin 5 MG Tab.ER PO SCH (21:00)
[2021-04-15] MEDS ORDERED: 50% Dextrose in Water 50 ML Syringe ONE (21:22)
[2021-04-15 21:45] LABS: ANION GAP 18.8 mEq/L (7-13)
[2021-04-15] MEDS ORDERED: Glucagon,Human Recombinant 1 MG Vial IM PRN (22:00)
[2021-04-15] MEDS ORDERED: 50% Dextrose in Water 50 ML Syringe IVPUSH PRN (22:00)
[2021-04-15] MEDS: Insulin Lispro 100 Units/ML 3 ML Vial SUBCUT SCH (22:24)
[2021-04-16] MEDS: cefTRIAXone 1 GM in Sodium Chloride 0.9% 50 ML IV SCH (01:18)
[2021-04-16] MEDS: Insulin Lispro 100 Units/ML 3 ML Vial SUBCUT SCH ×2 (04:43→10:17)
[2021-04-16] MEDS: Omeprazole 20 MG Cap.CR PO SCH (06:10)
[2021-04-16 06:22] LABS: ANION GAP 19.5 mEq/L (7-13)
[2021-04-16] MEDS ORDERED: Sodium Polystyrene Sulfonate 15 GM/60 ML Susp 60 ML Bot PO ONE (07:19)
--- NOTE | 2021-04-16 07:28 | PCM.PN ---
- General Info Date of Service: 04/16/21 Subjective Update: The patient complains of throat pain due to her nasogastric tube. Aside from this she endorses no complaints. She denies fever, rigors, nausea, vomiting, cough, wheeze, abdominal pain, chest pain, dyspnea. I explained to the patient her current medical condition and plan of care and I have answered all of her questions. Per nursing staff patient has been having regular bowel movements and her nasogastric tube output has decreased Functional Status: Reports: Pain Controlled - Review of Systems General: Reports: No Symptoms HEENT: Reports: No Symptoms Pulmonary: Reports: No Symptoms Cardiovascular: Reports: No Symptoms Gastrointestinal: Reports: No Symptoms Genitourinary: Reports: No Symptoms Musculoskeletal: Reports: No Symptoms Skin: Reports: No Symptoms Neurological: Reports: No Symptoms Psychiatric: Reports: No Symptoms - Patient Data Vitals - Most Recent: Last Vital Signs Temp 98.7 F 04/16/21 04:00 Pulse 64 04/16/21 04:00 Resp 16 04/16/21 04:00 BP 135/54 L 04/16/21 04:00 Pulse Ox 99 04/16/21 04:00 Weight - Most Recent: 129 lb 6.4 oz I&O - Last 24 Hours: Intake & Output 04/15/21 04/16/21 04/16/21 22:59 06:59 14:59 Intake Total 1350 44 Output Total 620 75 Balance 730 -31 Lab Results Last 24 Hours: Laboratory Results - last 24 hr 04/15/21 04/15/21 04/15/21 Range/Units 06:20 07:51 08:45 WBC (5.0-10.0) 10^3/uL RBC (4.2-5.4) 10^6/uL Hgb (12.0-16.0) g/dL Hct (37.0-47.0) % MCV (80-100) fL MCH (27.0-34.0) pg MCHC (33.0-35.0) g/dL Plt Count (150-450) 10^3/uL Neut % (Auto) (42.2-75.2) % Lymph % (Auto) (20.5-50.1) % [place] % (Auto) (2-8) % Eos % (Auto) (1.0-3.0) % Baso % (Auto) (0.0-1.0) % Sodium (136-145) mmol/L Potassium (3.5-5.1) mmol/L Chloride (98-107) mmol/L Carbon Dioxide (21-32) mmol/L Anion Gap (7-13) mEq/L BUN (7-18) mg/dL Creatinine (0.55-1.02) mg/dL Est Cr Clr Drug Dosing mL/min Estimated GFR (MDRD) Glucose (70-99) mg/dL POC Glucose 65 L 72 (70-99) mg/dL Calcium (8.5-10.1) mg/dL Phosphorus 5.2 H (2.6-4.7) mg/dL 04/15/21 04/15/21 04/15/21 Range/Units 09:59 11:01 12:02 WBC (5.0-10.0) 10^3/uL RBC (4.2-5.4) 10^6/uL Hgb (12.0-16.0) g/dL Hct (37.0-47.0) % MCV (80-100) fL MCH (27.0-34.0) pg MCHC (33.0-35.0) g/dL Plt Count (150-450) 10^3/uL Neut % (Auto) (42.2-75.2) % Lymph % (Auto) (20.5-50.1) % [place] % (Auto) (2-8) % Eos % (Auto) (1.0-3.0) % Baso % (Auto) (0.0-1.0) % Sodium (136-145) mmol/L Potassium (3.5-5.1) mmol/L Chloride (98-107) mmol/L Carbon Dioxide (21-32) mmol/L Anion Gap (7-13) mEq/L BUN (7-18) mg/dL Creatinine (0.55-1.02) mg/dL Est Cr Clr Drug Dosing mL/min Estimated GFR (MDRD) Glucose (70-99) mg/dL POC Glucose 268 H 218 H 232 H (70-99) mg/dL Calcium (8.5-10.1) mg/dL Phosphorus (2.6-4.7) mg/dL 04/15/21 04/15/21 04/15/21 Range/Units 12:04 13:12 13:59 WBC (5.0-10.0) 10^3/uL RBC (4.2-5.4) 10^6/uL Hgb (12.0-16.0) g/dL Hct (37.0-47.0) % MCV (80-100) fL MCH (27.0-34.0) pg MCHC (33.0-35.0) g/dL Plt Count (150-450) 10^3/uL Neut % (Auto) (42.2-75.2) % Lymph % (Auto) (20.5-50.1) % [place] % (Auto) (2-8) % Eos % (Auto) (1.0-3.0) % Baso % (Auto) (0.0-1.0) % Sodium 145 (136-145) mmol/L Potassium 3.1 L (3.5-5.1) mmol/L Chloride 113 H (98-107) mmol/L Carbon Dioxide 15 L (21-32) mmol/L Anion Gap 20.1 H (7-13) mEq/L BUN 40 H (7-18) mg/dL Creatinine 2.02 H (0.55-1.02) mg/dL Est Cr Clr Drug Dosing 19.60 mL/min Estimated GFR (MDRD) 24 Glucose 234 H (70-99) mg/dL POC Glucose 189 H 174 H (70-99) mg/dL Calcium 8.1 L (8.5-10.1) mg/dL Phosphorus (2.6-4.7) mg/dL 04/15/21 04/15/21 04/15/21 Range/Units 15:09 16:17 16:21 WBC (5.0-10.0) 10^3/uL RBC (4.2-5.4) 10^6/uL Hgb (12.0-16.0) g/dL Hct (37.0-47.0) % MCV (80-100) fL MCH (27.0-34.0) pg MCHC (33.0-35.0) g/dL Plt Count (150-450) 10^3/uL Neut % (Auto) (42.2-75.2) % Lymph % (Auto) (20.5-50.1) % [place] % (Auto) (2-8) % Eos % (Auto) (1.0-3.0) % Baso % (Auto) (0.0-1.0) % Sodium 145 (136-145) mmol/L Potassium 3.3 L (3.5-5.1) mmol/L Chloride 114 H (98-107) mmol/L Carbon Dioxide 16 L (21-32) mmol/L Anion Gap 18.3 H (7-13) mEq/L BUN 40 H (7-18) mg/dL Creatinine 2.01 H (0.55-1.02) mg/dL Est Cr Clr Drug Dosing 19.70 mL/min Estimated GFR (MDRD) 24 Glucose 152 H (70-99) mg/dL POC Glucose 162 H 131 H (70-99) mg/dL Calcium 8.2 L (8.5-10.1) mg/dL Phosphorus (2.6-4.7) mg/dL 04/15/21 04/15/21 04/15/21 Range/Units 17:42 18:16 19:21 WBC (5.0-10.0) 10^3/uL RBC (4.2-5.4) 10^6/uL Hgb (12.0-16.0) g/dL Hct (37.0-47.0) % MCV (80-100) fL MCH (27.0-34.0) pg MCHC (33.0-35.0) g/dL Plt Count (150-450) 10^3/uL Neut % (Auto) (42.2-75.2) % Lymph % (Auto) (20.5-50.1) % [place] % (Auto) (2-8) % Eos % (Auto) (1.0-3.0) % Baso % (Auto) (0.0-1.0) % Sodium (136-145) mmol/L Potassium (3.5-5.1) mmol/L Chloride (98-107) mmol/L Carbon Dioxide (21-32) mmol/L Anion Gap (7-13) mEq/L BUN (7-18) mg/dL Creatinine (0.55-1.02) mg/dL Est Cr Clr Drug Dosing mL/min Estimated GFR (MDRD) Glucose (70-99) mg/dL POC Glucose 108 H 112 H 95 (70-99) mg/dL Calcium (8.5-10.1) mg/dL Phosphorus (2.6-4.7) mg/dL 04/15/21 04/15/21 04/15/21 Range/Units 20:13 21:15 21:25 WBC (5.0-10.0) 10^3/uL RBC (4.2-5.4) 10^6/uL Hgb (12.0-16.0) g/dL Hct (37.0-47.0) % MCV (80-100) fL MCH (27.0-34.0) pg MCHC (33.0-35.0) g/dL Plt Count (150-450) 10^3/uL Neut % (Auto) (42.2-75.2) % Lymph % (Auto) (20.5-50.1) % [place] % (Auto) (2-8) % Eos % (Auto) (1.0-3.0) % Baso % (Auto) (0.0-1.0) % Sodium 144 (136-145) mmol/L Potassium 5.8 H D (3.5-5.1) mmol/L Chloride 115 H (98-107) mmol/L Carbon Dioxide 16 L (21-32) mmol/L Anion Gap 18.8 H (7-13) mEq/L BUN 40 H (7-18) mg/dL Creatinine 2.04 H (0.55-1.02) mg/dL Est Cr Clr Drug Dosing 19.41 mL/min Estimated GFR (MDRD) 24 Glucose 79 (70-99) mg/dL POC Glucose 88 69 L (70-99) mg/dL Calcium 8.3 L (8.5-10.1) mg/dL Phosphorus (2.6-4.7) mg/dL 04/15/21 04/15/21 04/16/21 Range/Units 21:51 23:37 04:06 WBC (5.0-10.0) 10^3/uL RBC (4.2-5.4) 10^6/uL Hgb (12.0-16.0) g/dL Hct (37.0-47.0) % MCV (80-100) fL MCH (27.0-34.0) pg MCHC (33.0-35.0) g/dL Plt Count (150-450) 10^3/uL Neut % (Auto) (42.2-75.2) % Lymph % (Auto) (20.5-50.1) % [place] % (Auto) (2-8) % Eos % (Auto) (1.0-3.0) % Baso % (Auto) (0.0-1.0) % Sodium (136-145) mmol/L Potassium (3.5-5.1) mmol/L Chloride (98-107) mmol/L Carbon Dioxide (21-32) mmol/L Anion Gap (7-13) mEq/L BUN (7-18) mg/dL Creatinine (0.55-1.02) mg/dL Est Cr Clr Drug Dosing mL/min Estimated GFR (MDRD) Glucose (70-99) mg/dL POC Glucose 159 H 127 H 82 (70-99) mg/dL Calcium (8.5-10.1) mg/dL Phosphorus (2.6-4.7) mg/dL 04/16/21 04/16/21 04/16/21 Range/Units 05:35 05:35 06:08 WBC 10.8 H (5.0-10.0) 10^3/uL RBC 3.10 L (4.2-5.4) 10^6/uL Hgb 9.5 L (12.0-16.0) g/dL Hct 30.2 L (37.0-47.0) % MCV 97.4 (80-100) fL MCH 30.6 (27.0-34.0) pg MCHC 31.5 L (33.0-35.0) g/dL Plt Count 376 (150-450) 10^3/uL Neut % (Auto) 69.4 (42.2-75.2) % Lymph % (Auto) 15.4 L (20.5-50.1) % [place] % (Auto) 10.0 H (2-8) % Eos % (Auto) 4.8 H (1.0-3.0) % Baso % (Auto) 0.4 (0.0-1.0) % Sodium 145 (136-145) mmol/L Potassium 5.5 H (3.5-5.1) mmol/L Chloride 117 H (98-107) mmol/L Carbon Dioxide 14 L (21-32) mmol/L Anion Gap 19.5 H (7-13) mEq/L BUN 36 H (7-18) mg/dL Creatinine 1.94 H (0.55-1.02) mg/dL Est Cr Clr Drug Dosing 20.41 mL/min Estimated GFR (MDRD) 25 Glucose 101 H (70-99) mg/dL POC Glucose 93 (70-99) mg/dL Calcium 8.2 L (8.5-10.1) mg/dL Phosphorus (2.6-4.7) mg/dL Siddharth Results Last 24 Hours: Microbiology 04/14/21 19:25 Aerobic Blood Culture - Preliminary Blood - Arm, Left NO GROWTH AFTER 1 DAY Anaerobic Blood Culture - Final Med Orders - Current: Current Medications Acetaminophen (Acetaminophen 325 Mg Tab) 650 mg PO Q4H PRN PRN Reason: Pain (Mild 1-3)/fever Aspirin (Aspirin 81 Mg Tab.Ec) 81 mg PO DAILY [facility] Last Admin: 04/15/21 08:19 Dose: 81 mg Documented by: Carvedilol (Carvedilol 6.25 Mg Tab) 6.25 mg PO BIDMEALS [facility] Last Admin: 04/15/21 17:33 Dose: Not Given Documented by: Clopidogrel Bisulfate (Clopidogrel 75 Mg Tab) 75 mg PO DAILY [facility] Last Admin: 04/15/21 08:21 Dose: 75 mg Documented by: Dextrose/Water (50% Dextrose In Water 50 Ml Syringe) 50 ml IVPUSH Q15M PRN PRN Reason: Hypoglycemia Glucagon (Glucagon,Human Recombinant 1 Mg Vial) 1 mg IM Q15M PRN PRN Reason: Hypoglycemia Heparin Sodium (Porcine) (Heparin Sodium 5,000 Units/Ml Vial) 5,000 units SUBCUT Q12H [facility] Last Admin: 04/15/21 20:43 Dose: 5,000 units Documented by: Ceftriaxone Sodium 1 gm/ (Sodium Chloride) 50 mls @ 100 mls/hr IV Q24H [facility] Last Admin: 04/16/21 01:18 Dose: 100 mls/hr Documented by: Insulin Human Lispro (Insulin Lispro 100 Units/Ml 3 Ml Vial) 0 unit SUBCUT Q6H [facility]; Protocol Last Admin: 04/16/21 04:43 Dose: Not Given Documented by: Brimonidine Tartrate /Timolol (Combigan) 0.2%-0.5% Eye Drops Own Med 1 drop EYELF BID [facility] Last Admin: 04/15/21 20:44 Dose: 1 drop Documented by: Omeprazole (Omeprazole 20 Mg Cap.Cr) 20 mg PO ACBREAKFAST [facility] Last Admin: 04/16/21 06:10 Dose: 20 mg Documented by: Ondansetron HCl (Ondansetron 4 Mg/2 Ml Sdv) 4 mg IVPUSH Q4H PRN PRN Reason: Nausea/Vomiting Oxybutynin Chloride (Oxybutynin 5 Mg Tab.Er) 10 mg PO BEDTIME [facility] Last Admin: 04/15/21 20:42 Dose: 10 mg Documented by: Senna/Docusate Sodium (Docusate Sodium/Sennosides 50-8.6 Mg Tab) 2 tab PO BID [facility] Last Admin: 04/15/21 20:42 Dose: 2 tab Documented by: Sodium Bicarbonate (Sodium Bicarbonate 650 Mg Tab) 650 mg PO TID [facility] Sodium Chloride (Sodium Chloride 0.9% 10 Ml Syringe) 10 ml FLUSH ASDIRECTED PRN PRN Reason: Keep Vein Open Discontinued Medications Dextrose/Water (50% Dextrose In Water 50 Ml Syringe) 100 ml IVPUSH ONETIME ONE Stop: 04/15/21 08:30 Last Admin: 04/15/21 09:22 Dose: 100 ml Documented by: Dextrose/Water (50% Dextrose In Water 50 Ml Syringe) 50 ml IVPUSH ONETIME ONE Stop: 04/15/21 21:24 Last Admin: 04/15/21 21:30 Dose: 50 ml Documented by: Dextrose/Water (50% Dextrose In Water 50 Ml Syringe) Confirm Administered Dose 50 ml .ROUTE .STK-MED ONE Stop: 04/15/21 21:23 Last Admin: 04/15/21 21:37 Dose: Not Given Documented by: Heparin Sodium (Porcine) (Heparin Sodium 5,000 Units/Ml Vial) 5,000 units SUBCUT Q12H [facility] Last Admin: 04/15/21 02:10 Dose: Not Given Documented by: Potassium Chloride 10 meq/ (Premix) 100 mls @ 100 mls/hr IV ONETIME ONE Stop: 04/14/21 22:35 Last Admin: 04/14/21 21:44 Dose: 100 mls/hr Documented by: Sodium Chloride (Normal Saline) 1,000 mls @ 50 mls/hr IV .BOLUS ONE Stop: 04/15/21 17:35 Last Infusion: 04/15/21 08:09 Dose: 75 mls/hr Documented by: Sodium Chloride (Normal Saline) 1,000 mls @ 75 mls/hr IV ASDIRECTED [facility] Potassium Chloride 20 meq/ (Premix) 100 mls @ 50 mls/hr IV Q2H [facility] Stop: 04/15/21 06:59 Last Admin: 04/15/21 06:06 Dose: 50 mls/hr Documented by: Insulin Regular in 0.9 % NACL (Myxredlin In Ns 100 Unit/100 Ml) 100 unit in 100 mls @ 2.5 drops/hr IV CONTINUOUS [facility]; Protocol Sodium Chloride (Sodium Chloride 0.45%) 1,000 mls @ 50 mls/hr IV ASDIRECTED [facility] Insulin Regular in 0.9 % NACL (Myxredlin In Ns 100 Unit/100 Ml) 100 unit in 100 mls @ 2.5 mls/hr IV CONTINUOUS [facility]; Protocol Last Titration: 04/15/21 21:24 Dose: 0 mls/hr, 0 mls/hr Documented by: Dextrose/Sodium Chloride (Dextrose 5%-1/2 Ns) 1,000 mls @ 75 mls/hr IV ASDIRECTED [facility] Last Admin: 04/15/21 20:41 Dose: 75 mls/hr Documented by: Potassium Chloride 20 meq/ (Premix) 100 mls @ 50 mls/hr IV Q2H [facility] Stop: 04/15/21 20:59 Last Admin: 04/15/21 20:02 Dose: 50 mls/hr Documented by: Sodium Chloride (Normal Saline) 1,000 mls @ 75 mls/hr IV ASDIRECTED [facility] Last Admin: 04/15/21 22:26 Dose: 75 mls/hr Documented by: Ondansetron HCl (Ondansetron 4 Mg/2 Ml Sdv) 4 mg IVPUSH ONETIME ONE Stop: 04/14/21 20:27 Last Admin: 04/14/21 20:40 Dose: 4 mg Documented by: Pantoprazole Sodium (Pantoprazole 40 Mg Vial) 40 mg IVPUSH ONETIME ONE Stop: 04/14/21 20:27 Last Admin: 04/14/21 20:43 Dose: 40 mg Documented by: Potassium Chloride (Potassium Chloride 10 Meq Tab.Er) 40 meq PO Q1H [facility] Stop: 04/15/21 15:01 Last Admin: 04/15/21 18:19 Dose: Not Given Documented by: Potassium Chloride (Potassium Chloride 10 Meq Tab.Er) 40 meq PO Q1H [facility] Stop: 04/15/21 18:01 Last Admin: 04/15/21 18:19 Dose: 40 meq Documented by: Sodium Bicarbonate (Sodium Bicarbonate 650 Mg Tab) 650 mg PO BID [facility] Last Admin: 04/15/21 20:42 Dose: 650 mg Documented by: Sodium Polystyrene Sulfonate (Sodium Polystyrene Sulfonate 15 Gm/60 Ml Susp 60 Ml Bot) 30 gm PO ONETIME ONE Stop: 04/16/21 07:20 - Exam General: Alert, Oriented HEENT: Pupils Equal, Pupils Reactive, EOMI, Mucous Membr. Moist/[place] Neck: Supple Lungs: Clear to Auscultation, Normal Respiratory Effort Cardiovascular: Regular Rate, Regular Rhythm GI/Abdominal Exam: Normal Bowel Sounds, Soft, Non-Tender, No Organomegaly, No Distention, No Abnormal Bruit, No Mass, Pelvis Stable Back Exam: Normal Inspection, Full Range of Motion Extremities: Other (Patient status post bilateral lower extremity amputation) Peripheral Pulses: 2+: Carotid (L), Carotid (R), Brachial (L), Brachial (R), Radial (L), Radial (R), Femoral (L), Femoral (R) Skin: Warm, Dry, Intact Wound/Incisions: Healing Well Neurological: No New Focal Deficit Psy/Mental Status: Alert, Normal Affect, Normal Mood - Patient Data Lab Results Last 24 hrs: Laboratory Results - last 24 hr 04/15/21 04/15/21 04/15/21 Range/Units 06:20 07:51 08:45 WBC (5.0-10.0) 10^3/uL RBC (4.2-5.4) 10^6/uL Hgb (12.0-16.0) g/dL Hct (37.0-47.0) % MCV (80-100) fL MCH (27.0-34.0) pg MCHC (33.0-35.0) g/dL Plt Count (150-450) 10^3/uL Neut % (Auto) (42.2-75.2) % Lymph % (Auto) (20.5-50.1) % [place] % (Auto) (2-8) % Eos % (Auto) (1.0-3.0) % Baso % (Auto) (0.0-1.0) % Sodium (136-145) mmol/L Potassium (3.5-5.1) mmol/L Chloride (98-107) mmol/L Carbon Dioxide (21-32) mmol/L Anion Gap (7-13) mEq/L BUN (7-18) mg/dL Creatinine (0.55-1.02) mg/dL Est Cr Clr Drug Dosing mL/min Estimated GFR (MDRD) Glucose (70-99) mg/dL POC Glucose 65 L 72 (70-99) mg/dL Calcium (8.5-10.1) mg/dL Phosphorus 5.2 H (2.6-4.7) mg/dL 04/15/21 04/15/21 04/15/21 Range/Units 09:59 11:01 12:02 WBC (5.0-10.0) 10^3/uL RBC (4.2-5.4) 10^6/uL Hgb (12.0-16.0) g/dL Hct (37.0-47.0) % MCV (80-100) fL MCH (27.0-34.0) pg MCHC (33.0-35.0) g/dL Plt Count (150-450) 10^3/uL Neut % (Auto) (42.2-75.2) % Lymph % (Auto) (20.5-50.1) % [place] % (Auto) (2-8) % Eos % (Auto) (1.0-3.0) % Baso % (Auto) (0.0-1.0) % Sodium (136-145) mmol/L Potassium (3.5-5.1) mmol/L Chloride (98-107) mmol/L Carbon Dioxide (21-32) mmol/L Anion Gap (7-13) mEq/L BUN (7-18) mg/dL Creatinine (0.55-1.02) mg/dL Est Cr Clr Drug Dosing mL/min Estimated GFR (MDRD) Glucose (70-99) mg/dL POC Glucose 268 H 218 H 232 H (70-99) mg/dL Calcium (8.5-10.1) mg/dL Phosphorus (2.6-4.7) mg/dL 04/15/21 04/15/21 04/15/21 Range/Units 12:04 13:12 13:59 WBC (5.0-10.0) 10^3/uL RBC (4.2-5.4) 10^6/uL Hgb (12.0-16.0) g/dL Hct (37.0-47.0) % MCV (80-100) fL MCH (27.0-34.0) pg MCHC (33.0-35.0) g/dL Plt Count (150-450) 10^3/uL Neut % (Auto) (42.2-75.2) % Lymph % (Auto) (20.5-50.1) % [place] % (Auto) (2-8) % Eos % (Auto) (1.0-3.0) % Baso % (Auto) (0.0-1.0) % Sodium 145 (136-145) mmol/L Potassium 3.1 L (3.5-5.1) mmol/L Chloride 113 H (98-107) mmol/L Carbon Dioxide 15 L (21-32) mmol/L Anion Gap 20.1 H (7-13) mEq/L BUN 40 H (7-18) mg/dL Creatinine 2.02 H (0.55-1.02) mg/dL Est Cr Clr Drug Dosing 19.60 mL/min Estimated GFR (MDRD) 24 Glucose 234 H (70-99) mg/dL POC Glucose 189 H 174 H (70-99) mg/dL Calcium 8.1 L (8.5-10.1) mg/dL Phosphorus (2.6-4.7) mg/dL 04/15/21 04/15/21 04/15/21 Range/Units 15:09 16:17 16:21 WBC (5.0-10.0) 10^3/uL RBC (4.2-5.4) 10^6/uL Hgb (12.0-16.0) g/dL Hct (37.0-47.0) % MCV (80-100) fL MCH (27.0-34.0) pg MCHC (33.0-35.0) g/dL Plt Count (150-450) 10^3/uL Neut % (Auto) (42.2-75.2) % Lymph % (Auto) (20.5-50.1) % [place] % (Auto) (2-8) % Eos % (Auto) (1.0-3.0) % Baso % (Auto) (0.0-1.0) % Sodium 145 (136-145) mmol/L Potassium 3.3 L (3.5-5.1) mmol/L Chloride 114 H (98-107) mmol/L Carbon Dioxide 16 L (21-32) mmol/L Anion Gap 18.3 H (7-13) mEq/L BUN 40 H (7-18) mg/dL Creatinine 2.01 H (0.55-1.02) mg/dL Est Cr Clr Drug Dosing 19.70 mL/min Estimated GFR (MDRD) 24 Glucose 152 H (70-99) mg/dL POC Glucose 162 H 131 H (70-99) mg/dL Calcium 8.2 L (8.5-10.1) mg/dL Phosphorus (2.6-4.7) mg/dL 04/15/21 04/15/21 04/15/21 Range/Units 17:42 18:16 19:21 WBC (5.0-10.0) 10^3/uL RBC (4.2-5.4) 10^6/uL Hgb (12.0-16.0) g/dL Hct (37.0-47.0) % MCV (80-100) fL MCH (27.0-34.0) pg MCHC (33.0-35.0) g/dL Plt Count (150-450) 10^3/uL Neut % (Auto) (42.2-75.2) % Lymph % (Auto) (20.5-50.1) % [place] % (Auto) (2-8) % Eos % (Auto) (1.0-3.0) % Baso % (Auto) (0.0-1.0) % Sodium (136-145) mmol/L Potassium (3.5-5.1) mmol/L Chloride (98-107) mmol/L Carbon Dioxide (21-32) mmol/L Anion Gap (7-13) mEq/L BUN (7-18) mg/dL Creatinine (0.55-1.02) mg/dL Est Cr Clr Drug Dosing mL/min Estimated GFR (MDRD) Glucose (70-99) mg/dL POC Glucose 108 H 112 H 95 (70-99) mg/dL Calcium (8.5-10.1) mg/dL Phosphorus (2.6-4.7) mg/dL 04/15/21 04/15/21 04/15/21 Range/Units 20:13 21:15 21:25 WBC (5.0-10.0) 10^3/uL RBC (4.2-5.4) 10^6/uL Hgb (12.0-16.0) g/dL Hct (37.0-47.0) % MCV (80-100) fL MCH (27.0-34.0) pg MCHC (33.0-35.0) g/dL Plt Count (150-450) 10^3/uL Neut % (Auto) (42.2-75.2) % Lymph % (Auto) (20.5-50.1) % [place] % (Auto) (2-8) % Eos % (Auto) (1.0-3.0) % Baso % (Auto) (0.0-1.0) % Sodium 144 (136-145) mmol/L Potassium 5.8 H D (3.5-5.1) mmol/L Chloride 115 H (98-107) mmol/L Carbon Dioxide 16 L (21-32) mmol/L Anion Gap 18.8 H (7-13) mEq/L BUN 40 H (7-18) mg/dL Creatinine 2.04 H (0.55-1.02) mg/dL Est Cr Clr Drug Dosing 19.41 mL/min Estimated GFR (MDRD) 24 Glucose 79 (70-99) mg/dL POC Glucose 88 69 L (70-99) mg/dL Calcium 8.3 L (8.5-10.1) mg/dL Phosphorus (2.6-4.7) mg/dL 04/15/21 04/15/21 04/16/21 Range/Units 21:51 23:37 04:06 WBC (5.0-10.0) 10^3/uL RBC (4.2-5.4) 10^6/uL Hgb (12.0-16.0) g/dL Hct (37.0-47.0) % MCV (80-100) fL MCH (27.0-34.0) pg MCHC (33.0-35.0) g/dL Plt Count (150-450) 10^3/uL Neut % (Auto) (42.2-75.2) % Lymph % (Auto) (20.5-50.1) % [place] % (Auto) (2-8) % Eos % (Auto) (1.0-3.0) % Baso % (Auto) (0.0-1.0) % Sodium (136-145) mmol/L Potassium (3.5-5.1) mmol/L Chloride (98-107) mmol/L Carbon Dioxide (21-32) mmol/L Anion Gap (7-13) mEq/L BUN (7-18) mg/dL Creatinine (0.55-1.02) mg/dL Est Cr Clr Drug Dosing mL/min Estimated GFR (MDRD) Glucose (70-99) mg/dL POC Glucose 159 H 127 H 82 (70-99) mg/dL Calcium (8.5-10.1) mg/dL Phosphorus (2.6-4.7) mg/dL 04/16/21 04/16/21 04/16/21 Range/Units 05:35 05:35 06:08 WBC 10.8 H (5.0-10.0) 10^3/uL RBC 3.10 L (4.2-5.4) 10^6/uL Hgb 9.5 L (12.0-16.0) g/dL Hct 30.2 L (37.0-47.0) % MCV 97.4 (80-100) fL MCH 30.6 (27.0-34.0) pg MCHC 31.5 L (33.0-35.0) g/dL Plt Count 376 (150-450) 10^3/uL Neut % (Auto) 69.4 (42.2-75.2) % Lymph % (Auto) 15.4 L (20.5-50.1) % [place] % (Auto) 10.0 H (2-8) % Eos % (Auto) 4.8 H (1.0-3.0) % Baso % (Auto) 0.4 (0.0-1.0) % Sodium 145 (136-145) mmol/L Potassium 5.5 H (3.5-5.1) mmol/L Chloride 117 H (98-107) mmol/L Carbon Dioxide 14 L (21-32) mmol/L Anion Gap 19.5 H (7-13) mEq/L BUN 36 H (7-18) mg/dL Creatinine 1.94 H (0.55-1.02) mg/dL Est Cr Clr Drug Dosing 20.41 mL/min Estimated GFR (MDRD) 25 Glucose 101 H (70-99) mg/dL POC Glucose 93 (70-99) mg/dL Calcium 8.2 L (8.5-10.1) mg/dL Phosphorus (2.6-4.7) mg/dL Result Diagrams: 04/16/21 05:35 04/16/21 05:35 Siddharth Results Last 24 hrs: Microbiology 04/14/21 19:25 Aerobic Blood Culture - Preliminary Blood - Arm, Left NO GROWTH AFTER 1 DAY Anaerobic Blood Culture - Final Sepsis Event Note - Evaluation Sepsis Screening Result: No Definite Risk - Focused Exam Vital Signs: Vital Signs Temp Pulse Resp BP BP Pulse Ox 04/16/21 04:00 98.7 F 64 16 135/54 L 99 04/16/21 00:00 98.8 F 64 16 112/52 L 99 04/15/21 20:00 97.4 F 64 20 96/48 L 99 - Problem List Review Problem List Initiated/Reviewed/Updated: Yes - My Orders Last 24 Hours: My Active Orders 04/15/21 07:43 Communication Order [RC] 08,20 04/15/21 08:00 Omeprazole 20 mg PO ACBREAKFAST carvediloL [Coreg] 6.25 mg PO BIDMEALS 04/15/21 08:34 Wound Care [RC] DAILY 04/15/21 08:35 Communication Order [RC] DAILY 04/15/21 09:00 Aspirin [Halfprin] 81 mg PO DAILY Clopidogrel [Plavix] 75 mg PO DAILY Heparin Sodium 5,000 units SUBCUT Q12H 04/15/21 15:13 Communication Order [RC] DAILY 04/15/21 21:00 Brimonidine Tartrate/Timolol [Combigan 0.2%-0.5% Eye Drops] 1 drop EYELF BID Oxybutynin [Oxybutynin ER] 10 mg PO BEDTIME 04/15/21 22:00 Dextrose 50% in Water 50 ml IVPUSH Q15M PRN Glucagon,Human Recombinant [GlucaGen] 1 mg IM Q15M PRN Insulin Lispro [HumaLOG] See Protocol SUBCUT Q6H 04/16/21 Breakfast Consistent Carbohydrate Diet [DIET] 04/16/21 07:19 Nasogastric Orogastric Tube Removal [OM.PC] Routine 04/16/21 07:21 Blood Glucose Check, Bedside [RC] WITHMEALSANDBED 04/16/21 09:00 Sodium Bicarbonate 650 mg PO TID 04/17/21 05:00 BASIC METABOLIC PANEL,BMP [CHEM] Routine PHOSPHORUS [CHEM] Routine - Plan Plan:: Surgical History: Previous documentation of herniorrhaphythe patient is uncertain of this, right carpal tunnel surgery, right [id number] amputation, previous documentation of bladder surgery of which the patient is uncertain, CABG, cardiac stent placement, left below-knee amputation, bilateral cataract surgery, cardiac ablation Family History: Cancer, stroke, diabetes, coronary artery disease, hypertension, hyperlipidemia Social History: Tobacco: Never Alcohol: Denies Caffeine: Cola Drugs: Never Allergies: Gemfibrozil, propanolol, codeine, Metformin, penicillin Code Status: Full Assessment / Plan: Query partial small bowel obstruction. Clinically resolved. Nasogastric tube removed April 16, 2021 and diet advanced. Senna plus: 2 tabs NG twice daily Hypernatremia. Will monitor sodium levels intermittently Overactive bladder. Ditropan XL 10 mg p.o. nightly Chronic kidney disease, baseline creatinine approximately 2. Will monitor creatinine level intermittently Metabolic acidosis, secondary to chronic kidney disease. Sodium bicarbonate 650 mg p.o. 3 times daily Hypokalemia. Will monitor potassium levels intermittently and supplement as necessary Hyperkalemia. Will monitor potassium levels intermittently and correct as necessary Hyperphosphatemia. Will monitor phosphorus levels intermittently and correct as necessary Urinary tract infection. Rocephin 1 g IV daily Glaucoma. Combigan 0.2% / 0.5%: 1 drop in both eyes twice daily Cholelithiasis, asymptomatic Anemia of chronic disease. Will monitor hemoglobin level intermittently. CHF, ejection fraction 30 to 35%. Coreg 6.25 mg p.o. twice daily Moderate mitral regurgitation Pulmonary hypertension Coronary artery disease, status post [place], status post [place], status post CABG. Coreg 6.25 mg p.o. twice daily plus aspirin 81 mg p.o. daily plus Plavix 75 mg p.o. daily Diabetes. Will check fingerstick glucose before every meal and at bedtime and provide sulci scale GERD. Prilosec 20 mg p.o. daily Hyperlipidemia Hypertension. Coreg 6.25 mg p.o. twice daily Osteoarthritis Neuropathy History of nephrolithiasis, status post left nephrostomy tube placement History of SVT, status post cardiac ablation. Coreg 6.25 mg p.o. twice daily Peripheral vascular disease. Aspirin 81 mg p.o. daily plus Plavix 75 mg p.o. daily Seasonal allergies Chronic pain DVT prophylaxis. Heparin 5000 units subcutaneously every 12 hours Disposition: We will advance the patient's diet on this day of April 16 1221. If she is able to tolerate her diet, she will be a candidate for discharge END OF DOCTOR EMAMIS HISTORY AND PHYSICAL / CONSULTATION NOTE
[2021-04-16] MEDS: Aspirin 81 MG Tab.EC PO SCH (08:30)
[2021-04-16] MEDS: Clopidogrel 75 MG Tab PO SCH (08:31)
[2021-04-16] MEDS: Carvedilol 6.25 MG Tab PO SCH (08:31)
[2021-04-16] MEDS: Heparin Sodium 5,000 Units/ML Vial SUBCUT SCH (08:31)
[2021-04-16] MEDS: TIMOLOL EYELF SCH (08:36)
[2021-04-16] MEDS: BRIMONIDINE TARTRATE EYELF SCH (08:36)
[2021-04-16] MEDS: EYE EYELF SCH (08:36)
[2021-04-16] MEDS ORDERED: Sodium Bicarbonate 650 MG Tab PO SCH (09:00)
--- NOTE | 2021-04-16 10:44 | PCM.DCSUM1 ---
Discharge Summary - Hospital Course Free Text/Narrative:: START OF DOCTOR EMAMIS DISCHARGE SUMMARY Date of Admission: April 14, 2021 Date of Discharge: 10:40 AM on April 16, 2021 Primary Diagnosis: Query partial small bowel junction, resolved Secondary Diagnosis: Hyponatremia, resolved Overactive bladder Chronic kidney disease, baseline creatinine approximately 2 Hypokalemia, status post treatment Hyperkalemia, status post treatment Hyperphosphatemia Urinary tract infection Glaucoma Cholelithiasis, asymptomatic Anemia of chronic disease CHF, ejection fraction 30 to 35% Moderate mitral regurgitation Pulmonary hypertension Coronary artery disease, status post AK, status post stent, status post CABG Diabetes GERD Hyperlipidemia Hypertension Osteoarthritis Neuropathy History nephrolithiasis, status post left nephrostomy tube placement History of SVT, status post cardiac ablation Peripheral vascular disease Seasonal allergies Chronic pain Metabolic acidosis, likely sequelae of chronic kidney disease Consultations: None Condition on Discharge: Fair Disposition: The patient will be advised to follow-up with the surgeon who performed her left lower extremity amputation as directed for wound care The patient is advised follow-up with nephrology 2 weeks post discharge for diagnosis of chronic kidney disease, metabolic acidosis The patient is advised to follow-up with urology as directed for management of her left nephrostomy tube The patient is advised follow-up with her primary care physician or with a provider 7 to 10 days post discharge for posthospitalization evaluation Discharge Medications: Multivitamin 1 tab p.o. daily Lactulose 30 mL p.o. twice daily as needed constipation Vitamin C 500 mg p.o. twice daily Sodium bicarbonate 650 mg p.o. 3 times daily Oxybutynin ER 10 mg p.o. nightly Prilosec 20 mg p.o. daily Plavix 75 mg p.o. daily Coreg 6.25 mg p.o. twice daily Combigan 0.2% / 0.5%: 1 drop in both eyes twice daily Aspirin 81 mg p.o. daily Bactrim 400/80 m tab p.o. twice daily. Quantity 10. 0 refills Bumex 1 mg p.o. daily Potassium chloride 20 [place] use p.o. daily to be resumed on April 19, 2021 Senna plus: 2 tabs p.o. twice daily END OF DOCTOR EMAMIS DISCHARGE SUMMARY - Discharge Data Discharge Date: 04/16/21 Discharge Disposition: Home, Self-Care 01 Condition: Fair - Referral to Home Health Primary Care Physician: PCP None - Patient Instructions Diet: Heart Healthy Diet, Low Sodium, Fluid Restriction, Diabetic Diet, Renal Diet Activity: As Tolerated - Discharge Plan *PRESCRIPTION DRUG MONITORING PROGRAM REVIEWED*: No *COPY OF PRESCRIPTION DRUG MONITORING REPORT IN PATIENT MALLORY: No Prescriptions/Med Rec: Sulfamethoxazole/Trimethoprim [Bactrim 400-80 MG] 1 each PO BID 5 Days #10 tablet Docusate Sodium/Sennosides [Senna Plus] 2 tab PO BID 30 Days #120 tablet Sodium Bicarbonate 650 mg PO TID 30 Days #90 tablet Home Medications: Home Meds Aspirin [Lo-Dose Aspirin EC] 81 mg PO DAILY 11/17/18 [History] Clopidogrel [Plavix] 75 mg PO DAILY 11/17/18 [History] Ascorbic Acid 500 mg PO BIDMEALS 12/14/20 [History] Brimonidine Tartrate/Timolol [Combigan 0.2%-0.5% Eye Drops] 1 drop EYELF BID 0 12/14/20 [History] Lactulose 30 ml PO BID PRN 12/14/20 [History] Omeprazole 20 mg PO DAILY 12/14/20 [History] Bumetanide [Bumex] 1 mg PO DAILY #30 tablet 12/23/20 [Rx] Multivitamin with Minerals [Multiple Vitamin] 1 tab PO WITHBREAKFAST 04/14/21 [History] Potassium Chloride 15 ml PO DAILY 04/14/21 [History] carvediloL [Carvedilol] 6.25 mg PO BIDMEALS 04/14/21 [History] Docusate Sodium/Sennosides [Senna Plus] 2 tab PO BID 30 Days #120 tablet 04/16/21 [Rx] Oxybutynin [Oxybutynin ER] 10 mg PO BEDTIME tab.er 04/16/21 [Rx] Sodium Bicarbonate 650 mg PO TID 30 Days #90 tablet 04/16/21 [Rx] Sulfamethoxazole/Trimethoprim [Bactrim 400-80 MG] 1 each PO BID 5 Days #10 tablet 04/16/21 [Rx] Patient Handouts: Docusate Sodium; Senna tablets or capsules, Sodium Bicarbonate tablets, Bowel Obstruction, [id number], Sulfamethoxazole; Trimethoprim, [id number]-[id number] tablets Referrals: PCP,None [Primary Care Provider] - - Discharge Summary/Plan Comment DC Time >30 min.: Yes - Review of Systems General: Reports: No Symptoms HEENT: Reports: No Symptoms Pulmonary: Reports: No Symptoms Cardiovascular: Reports: No Symptoms Gastrointestinal: Reports: No Symptoms Genitourinary: Reports: No Symptoms Musculoskeletal: Reports: No Symptoms Skin: Reports: No Symptoms Neurological: Reports: No Symptoms Psychiatric: Reports: No Symptoms - Patient Data Vitals - Most Recent: Last Vital Signs Temp 97.9 F 04/16/21 08:00 Pulse 62 04/16/21 08:31 Resp 20 04/16/21 08:00 BP 178/70 H 04/16/21 08:31 Pulse Ox 100 04/16/21 08:00 Weight - Most Recent: 129 lb 6.4 oz I&O - Last 24 hours: Intake & Output 04/15/21 04/16/21 04/16/21 22:59 06:59 14:59 Intake Total 1350 44 360 Output Total 620 75 Balance 730 -31 360 Lab Results - Last 24 hrs: Laboratory Results - last 24 hr 04/15/21 04/15/21 04/15/21 Range/Units 11:01 12:02 12:04 WBC (5.0-10.0) 10^3/uL RBC (4.2-5.4) 10^6/uL Hgb (12.0-16.0) g/dL Hct (37.0-47.0) % MCV (80-100) fL MCH (27.0-34.0) pg MCHC (33.0-35.0) g/dL Plt Count (150-450) 10^3/uL Neut % (Auto) (42.2-75.2) % Lymph % (Auto) (20.5-50.1) % [place] % (Auto) (2-8) % Eos % (Auto) (1.0-3.0) % Baso % (Auto) (0.0-1.0) % Sodium 145 (136-145) mmol/L Potassium 3.1 L (3.5-5.1) mmol/L Chloride 113 H (98-107) mmol/L Carbon Dioxide 15 L (21-32) mmol/L Anion Gap 20.1 H (7-13) mEq/L BUN 40 H (7-18) mg/dL Creatinine 2.02 H (0.55-1.02) mg/dL Est Cr Clr Drug Dosing 19.60 mL/min Estimated GFR (MDRD) 24 Glucose 234 H (70-99) mg/dL POC Glucose 218 H 232 H (70-99) mg/dL Calcium 8.1 L (8.5-10.1) mg/dL 04/15/21 04/15/21 04/15/21 Range/Units 13:12 13:59 15:09 WBC (5.0-10.0) 10^3/uL RBC (4.2-5.4) 10^6/uL Hgb (12.0-16.0) g/dL Hct (37.0-47.0) % MCV (80-100) fL MCH (27.0-34.0) pg MCHC (33.0-35.0) g/dL Plt Count (150-450) 10^3/uL Neut % (Auto) (42.2-75.2) % Lymph % (Auto) (20.5-50.1) % [place] % (Auto) (2-8) % Eos % (Auto) (1.0-3.0) % Baso % (Auto) (0.0-1.0) % Sodium (136-145) mmol/L Potassium (3.5-5.1) mmol/L Chloride (98-107) mmol/L Carbon Dioxide (21-32) mmol/L Anion Gap (7-13) mEq/L BUN (7-18) mg/dL Creatinine (0.55-1.02) mg/dL Est Cr Clr Drug Dosing mL/min Estimated GFR (MDRD) Glucose (70-99) mg/dL POC Glucose 189 H 174 H 162 H (70-99) mg/dL Calcium (8.5-10.1) mg/dL 04/15/21 04/15/21 04/15/21 Range/Units 16:17 16:21 17:42 WBC (5.0-10.0) 10^3/uL RBC (4.2-5.4) 10^6/uL Hgb (12.0-16.0) g/dL Hct (37.0-47.0) % MCV (80-100) fL MCH (27.0-34.0) pg MCHC (33.0-35.0) g/dL Plt Count (150-450) 10^3/uL Neut % (Auto) (42.2-75.2) % Lymph % (Auto) (20.5-50.1) % [place] % (Auto) (2-8) % Eos % (Auto) (1.0-3.0) % Baso % (Auto) (0.0-1.0) % Sodium 145 (136-145) mmol/L Potassium 3.3 L (3.5-5.1) mmol/L Chloride 114 H (98-107) mmol/L Carbon Dioxide 16 L (21-32) mmol/L Anion Gap 18.3 H (7-13) mEq/L BUN 40 H (7-18) mg/dL Creatinine 2.01 H (0.55-1.02) mg/dL Est Cr Clr Drug Dosing 19.70 mL/min Estimated GFR (MDRD) 24 Glucose 152 H (70-99) mg/dL POC Glucose 131 H 108 H (70-99) mg/dL Calcium 8.2 L (8.5-10.1) mg/dL 04/15/21 04/15/21 04/15/21 Range/Units 18:16 19:21 20:13 WBC (5.0-10.0) 10^3/uL RBC (4.2-5.4) 10^6/uL Hgb (12.0-16.0) g/dL Hct (37.0-47.0) % MCV (80-100) fL MCH (27.0-34.0) pg MCHC (33.0-35.0) g/dL Plt Count (150-450) 10^3/uL Neut % (Auto) (42.2-75.2) % Lymph % (Auto) (20.5-50.1) % [place] % (Auto) (2-8) % Eos % (Auto) (1.0-3.0) % Baso % (Auto) (0.0-1.0) % Sodium (136-145) mmol/L Potassium (3.5-5.1) mmol/L Chloride (98-107) mmol/L Carbon Dioxide (21-32) mmol/L Anion Gap (7-13) mEq/L BUN (7-18) mg/dL Creatinine (0.55-1.02) mg/dL Est Cr Clr Drug Dosing mL/min Estimated GFR (MDRD) Glucose (70-99) mg/dL POC Glucose 112 H 95 88 (70-99) mg/dL Calcium (8.5-10.1) mg/dL 04/15/21 04/15/21 04/15/21 Range/Units 21:15 21:25 21:51 WBC (5.0-10.0) 10^3/uL RBC (4.2-5.4) 10^6/uL Hgb (12.0-16.0) g/dL Hct (37.0-47.0) % MCV (80-100) fL MCH (27.0-34.0) pg MCHC (33.0-35.0) g/dL Plt Count (150-450) 10^3/uL Neut % (Auto) (42.2-75.2) % Lymph % (Auto) (20.5-50.1) % [place] % (Auto) (2-8) % Eos % (Auto) (1.0-3.0) % Baso % (Auto) (0.0-1.0) % Sodium 144 (136-145) mmol/L Potassium 5.8 H D (3.5-5.1) mmol/L Chloride 115 H (98-107) mmol/L Carbon Dioxide 16 L (21-32) mmol/L Anion Gap 18.8 H (7-13) mEq/L BUN 40 H (7-18) mg/dL Creatinine 2.04 H (0.55-1.02) mg/dL Est Cr Clr Drug Dosing 19.41 mL/min Estimated GFR (MDRD) 24 Glucose 79 (70-99) mg/dL POC Glucose 69 L 159 H (70-99) mg/dL Calcium 8.3 L (8.5-10.1) mg/dL 04/15/21 04/16/21 04/16/21 Range/Units 23:37 04:06 05:35 WBC 10.8 H (5.0-10.0) 10^3/uL RBC 3.10 L (4.2-5.4) 10^6/uL Hgb 9.5 L (12.0-16.0) g/dL Hct 30.2 L (37.0-47.0) % MCV 97.4 (80-100) fL MCH 30.6 (27.0-34.0) pg MCHC 31.5 L (33.0-35.0) g/dL Plt Count 376 (150-450) 10^3/uL Neut % (Auto) 69.4 (42.2-75.2) % Lymph % (Auto) 15.4 L (20.5-50.1) % [place] % (Auto) 10.0 H (2-8) % Eos % (Auto) 4.8 H (1.0-3.0) % Baso % (Auto) 0.4 (0.0-1.0) % Sodium (136-145) mmol/L Potassium (3.5-5.1) mmol/L Chloride (98-107) mmol/L Carbon Dioxide (21-32) mmol/L Anion Gap (7-13) mEq/L BUN (7-18) mg/dL Creatinine (0.55-1.02) mg/dL Est Cr Clr Drug Dosing mL/min Estimated GFR (MDRD) Glucose (70-99) mg/dL POC Glucose 127 H 82 (70-99) mg/dL Calcium (8.5-10.1) mg/dL 04/16/21 04/16/21 04/16/21 Range/Units 05:35 06:08 10:01 WBC (5.0-10.0) 10^3/uL RBC (4.2-5.4) 10^6/uL Hgb (12.0-16.0) g/dL Hct (37.0-47.0) % MCV (80-100) fL MCH (27.0-34.0) pg MCHC (33.0-35.0) g/dL Plt Count (150-450) 10^3/uL Neut % (Auto) (42.2-75.2) % Lymph % (Auto) (20.5-50.1) % [place] % (Auto) (2-8) % Eos % (Auto) (1.0-3.0) % Baso % (Auto) (0.0-1.0) % Sodium 145 (136-145) mmol/L Potassium 5.5 H (3.5-5.1) mmol/L Chloride 117 H (98-107) mmol/L Carbon Dioxide 14 L (21-32) mmol/L Anion Gap 19.5 H (7-13) mEq/L BUN 36 H (7-18) mg/dL Creatinine 1.94 H (0.55-1.02) mg/dL Est Cr Clr Drug Dosing 20.41 mL/min Estimated GFR (MDRD) 25 Glucose 101 H (70-99) mg/dL POC Glucose 93 142 H (70-99) mg/dL Calcium 8.2 L (8.5-10.1) mg/dL YISEL Results - Last 24 hrs: Microbiology 04/14/21 21:41 Urine Culture - Preliminary Urine, Nephrostomy Gram Negative Rods Yeast 04/14/21 19:25 Aerobic Blood Culture - Preliminary Blood - Arm, Left NO GROWTH AFTER 1 DAY Anaerobic Blood Culture - Final Med Orders - Current: Current Medications Acetaminophen (Acetaminophen 325 Mg Tab) 650 mg PO Q4H PRN PRN Reason: Pain (Mild 1-3)/fever Aspirin (Aspirin 81 Mg Tab.Ec) 81 mg PO DAILY [facility] Last Admin: 04/16/21 08:30 Dose: 81 mg Documented by: Carvedilol (Carvedilol 6.25 Mg Tab) 6.25 mg PO BIDMEALS [facility] Last Admin: 04/16/21 08:31 Dose: 6.25 mg Documented by: Clopidogrel Bisulfate (Clopidogrel 75 Mg Tab) 75 mg PO DAILY [facility] Last Admin: 04/16/21 08:31 Dose: 75 mg Documented by: Dextrose/Water (50% Dextrose In Water 50 Ml Syringe) 50 ml IVPUSH Q15M PRN PRN Reason: Hypoglycemia Glucagon (Glucagon,Human Recombinant 1 Mg Vial) 1 mg IM Q15M PRN PRN Reason: Hypoglycemia Heparin Sodium (Porcine) (Heparin Sodium 5,000 Units/Ml Vial) 5,000 units SUBCUT Q12H [facility] Last Admin: 04/16/21 08:31 Dose: 5,000 units Documented by: Ceftriaxone Sodium 1 gm/ (Sodium Chloride) 50 mls @ 100 mls/hr IV Q24H [facility] Last Admin: 04/16/21 01:18 Dose: 100 mls/hr Documented by: Insulin Human Lispro (Insulin Lispro 100 Units/Ml 3 Ml Vial) 0 unit SUBCUT Q6H [facility]; Protocol Last Admin: 04/16/21 10:17 Dose: Not Given Documented by: Brimonidine Tartrate /Timolol (Combigan) 0.2%-0.5% Eye Drops Own Med 1 drop EYELF BID [facility] Last Admin: 04/16/21 08:36 Dose: 1 drop Documented by: Omeprazole (Omeprazole 20 Mg Cap.Cr) 20 mg PO ACBREAKFAST [facility] Last Admin: 04/16/21 06:10 Dose: 20 mg Documented by: Ondansetron HCl (Ondansetron 4 Mg/2 Ml Sdv) 4 mg IVPUSH Q4H PRN PRN Reason: Nausea/Vomiting Oxybutynin Chloride (Oxybutynin 5 Mg Tab.Er) 10 mg PO BEDTIME [facility] Last Admin: 04/15/21 20:42 Dose: 10 mg Documented by: Senna/Docusate Sodium (Docusate Sodium/Sennosides 50-8.6 Mg Tab) 2 tab PO BID [facility] Last Admin: 04/16/21 08:30 Dose: 2 tab Documented by: Sodium Bicarbonate (Sodium Bicarbonate 650 Mg Tab) 650 mg PO TID [facility] Last Admin: 04/16/21 08:30 Dose: 650 mg Documented by: Sodium Chloride (Sodium Chloride 0.9% 10 Ml Syringe) 10 ml FLUSH ASDIRECTED PRN PRN Reason: Keep Vein Open Discontinued Medications Dextrose/Water (50% Dextrose In Water 50 Ml Syringe) 100 ml IVPUSH ONETIME ONE Stop: 04/15/21 08:30 Last Admin: 04/15/21 09:22 Dose: 100 ml Documented by: Dextrose/Water (50% Dextrose In Water 50 Ml Syringe) 50 ml IVPUSH ONETIME ONE Stop: 04/15/21 21:24 Last Admin: 04/15/21 21:30 Dose: 50 ml Documented by: Dextrose/Water (50% Dextrose In Water 50 Ml Syringe) Confirm Administered Dose 50 ml .ROUTE .STK-MED ONE Stop: 04/15/21 21:23 Last Admin: 04/15/21 21:37 Dose: Not Given Documented by: Heparin Sodium (Porcine) (Heparin Sodium 5,000 Units/Ml Vial) 5,000 units SUBCUT Q12H [facility] Last Admin: 04/15/21 02:10 Dose: Not Given Documented by: Potassium Chloride 10 meq/ (Premix) 100 mls @ 100 mls/hr IV ONETIME ONE Stop: 04/14/21 22:35 Last Admin: 04/14/21 21:44 Dose: 100 mls/hr Documented by: Sodium Chloride (Normal Saline) 1,000 mls @ 50 mls/hr IV .BOLUS ONE Stop: 04/15/21 17:35 Last Infusion: 04/15/21 08:09 Dose: 75 mls/hr Documented by: Sodium Chloride (Normal Saline) 1,000 mls @ 75 mls/hr IV ASDIRECTED [facility] Potassium Chloride 20 meq/ (Premix) 100 mls @ 50 mls/hr IV Q2H [facility] Stop: 04/15/21 06:59 Last Admin: 04/15/21 06:06 Dose: 50 mls/hr Documented by: Insulin Regular in 0.9 % NACL (Myxredlin In Ns 100 Unit/100 Ml) 100 unit in 100 mls @ 2.5 drops/hr IV CONTINUOUS [facility]; Protocol Sodium Chloride (Sodium Chloride 0.45%) 1,000 mls @ 50 mls/hr IV ASDIRECTED [facility]EL[facility] Insulin Regular in 0.9 % NACL (Myxredlin In Ns 100 Unit/100 Ml) 100 unit in 100 mls @ 2.5 mls/hr IV CONTINUOUS [facility]; Protocol Last Titration: 04/15/21 21:24 Dose: 0 mls/hr, 0 mls/hr Documented by: Dextrose/Sodium Chloride (Dextrose 5%-1/2 Ns) 1,000 mls @ 75 mls/hr IV ASDIRECTED [facility] Last Admin: 04/15/21 20:41 Dose: 75 mls/hr Documented by: Potassium Chloride 20 meq/ (Premix) 100 mls @ 50 mls/hr IV Q2H [facility] Stop: 04/15/21 20:59 Last Admin: 04/15/21 20:02 Dose: 50 mls/hr Documented by: Sodium Chloride (Normal Saline) 1,000 mls @ 75 mls/hr IV ASDIRECTED [facility] Last Admin: 04/15/21 22:26 Dose: 75 mls/hr Documented by: Ondansetron HCl (Ondansetron 4 Mg/2 Ml Sdv) 4 mg IVPUSH ONETIME ONE Stop: 04/14/21 20:27 Last Admin: 04/14/21 20:40 Dose: 4 mg Documented by: Pantoprazole Sodium (Pantoprazole 40 Mg Vial) 40 mg IVPUSH ONETIME ONE Stop: 04/14/21 20:27 Last Admin: 04/14/21 20:43 Dose: 40 mg Documented by: Potassium Chloride (Potassium Chloride 10 Meq Tab.Er) 40 meq PO Q1H [facility] Stop: 04/15/21 15:01 Last Admin: 04/15/21 18:19 Dose: Not Given Documented by: Potassium Chloride (Potassium Chloride 10 Meq Tab.Er) 40 meq PO Q1H [facility] Stop: 04/15/21 18:01 Last Admin: 04/15/21 18:19 Dose: 40 meq Documented by: Sodium Bicarbonate (Sodium Bicarbonate 650 Mg Tab) 650 mg PO BID [facility] Last Admin: 04/15/21 20:42 Dose: 650 mg Documented by: Sodium Polystyrene Sulfonate (Sodium Polystyrene Sulfonate 15 Gm/60 Ml Susp 60 Ml Bot) 30 gm PO ONETIME ONE Stop: 04/16/21 07:20 Last Admin: 04/16/21 07:33 Dose: 30 gm Documented by: - Exam General: Reports: Alert, Oriented HEENT: Reports: Pupils Equal, Pupils Reactive, EOMI, Mucous Membr. Moist/[place] Neck: Reports: Supple Lungs: Reports: Clear to Auscultation, Normal Respiratory Effort Cardiovascular: Reports: Regular Rate, Regular Rhythm GI/Abdominal Exam: Normal Bowel Sounds, Soft, Non-Tender, No Organomegaly, No Distention, No Abnormal Bruit, No Mass, Pelvis Stable Back Exam: Reports: Normal Inspection, Full Range of Motion Extremities: Other (Patient status post bilateral lower extremity amputation) Skin: Reports: Warm, Dry, Intact Wound/Incisions: Reports: Healing Well Neurological: Reports: No New Focal Deficit Psy/Mental Status: Reports: Alert, Normal Affect, Normal Mood
[2021-04-16 12:27] VITALS: BP 125/64; PULSE 64
== END 2021-04-16 11:42 | disposition home or self-care (01) | DRG 389 ==
LOC: DL.ED 16:32 → DL.MS 23:07
PROVIDERS: ADMIT Internal Medicine; ATTEND Internal Medicine
PROC: 0D9670Z Drainage of Stomach with Drainage Device, Via Natural or Artificial Opening (ICD-10-PCS; principal; 2021-04-14)
DX: K56.600 Partial intestinal obstruction, unspecified as to cause (principal); N39.0 Urinary tract infection, site not specified; E87.0 Hyperosmolality and hypernatremia; E87.2 Acidosis; N32.81 Overactive bladder; K56.609 Unspecified intestinal obstruction, unspecified as to partial versus complete obstruction; H40.9 Unspecified glaucoma; I50.9 Heart failure, unspecified; I27.20 Pulmonary hypertension, unspecified; E87.6 Hypokalemia; I34.0 Nonrheumatic mitral (valve) insufficiency; E11.22 Type 2 diabetes mellitus with diabetic chronic kidney disease; K21.9 Gastro-esophageal reflux disease without esophagitis; E78.5 Hyperlipidemia, unspecified; E87.5 Hyperkalemia; E83.39 Other disorders of phosphorus metabolism; D63.1 Anemia in chronic kidney disease; H54.7 Unspecified visual loss; E11.42 Type 2 diabetes mellitus with diabetic polyneuropathy; G89.29 Other chronic pain; I25.10 Atherosclerotic heart disease of native coronary artery without angina pectoris; E78.00 Pure hypercholesterolemia, unspecified; I25.2 Old myocardial infarction; Z95.5 Presence of coronary angioplasty implant and graft; E66.9 Obesity, unspecified; Z98.890 Other specified postprocedural states; I10 Essential (primary) hypertension; Z98.41 Cataract extraction status, right eye; Z98.42 Cataract extraction status, left eye; K59.09 Other constipation; M19.90 Unspecified osteoarthritis, unspecified site; E11.65 Type 2 diabetes mellitus with hyperglycemia; E11.40 Type 2 diabetes mellitus with diabetic neuropathy, unspecified; Z95.1 Presence of aortocoronary bypass graft; Z88.0 Allergy status to penicillin; Z88.5 Allergy status to narcotic agent; Z89.512 Acquired absence of left leg below knee; Z68.22 Body mass index [BMI] 22.0-22.9, adult; Z88.8 Allergy status to other drugs, medicaments and biological substances; Z79.01 Long term (current) use of anticoagulants; Z79.82 Long term (current) use of aspirin; Z79.899 Other long term (current) drug therapy; Z20.822 Contact with and (suspected) exposure to COVID-19
CPT/HCPCS: 36415; 74176; 80053; 81001; 82009; 82150; 82272; 82728; 83540; 83550; 83605; 83690; 83735; 84484; 85025; 85610; 87040; 87086; 87088; 87186; 96365; 96375; 99284; 99285; C9113; J2405; J3480; J7030; U0002; 71045; 80048; 82947; 84100; A9270-GY; J0696; J1644; J1815-GY; J7042

== ENCOUNTER 2021-07-02 11:31 | Emergency (ER) | payer MEDICARE ==
[2021-07-02 12:10] VITALS: BP 186/70; PULSE 64
--- NOTE | 2021-07-02 12:20 | CT ---
PROCEDURE INFORMATION: Exam: CT Head Without Contrast Exam date and time: 07/02/2021 12:13 PM Age: 75 years old Clinical indication: Other: Slurred speech, facial droop TECHNIQUE: Imaging protocol: Computed tomography of the head without contrast. Radiation optimization: All CT scans at this facility use at least one of these dose optimization techniques: automated exposure control; mA and/or kV adjustment per patient size (includes targeted exams where dose is matched to clinical indication); or iterative reconstruction. Other technique: STROKE PROTOCOL was implemented. COMPARISON: CT Head wo Cont 05/14/2021 11:50 PM FINDINGS: Brain: There is mild atrophy and mild to moderate microangiopathy. There are remote multifocal lacunar infarcts seen within the basal ganglia. A subtle area of low attenuation within the left gisselle with seen on the prior examination. This could be artifactual or related to an old infarct. Cerebral ventricles: No ventriculomegaly. Paranasal sinuses: Visualized sinuses are unremarkable. No fluid levels. Mastoid air cells: Visualized mastoid air cells are well aerated. Bones/joints: Unremarkable. No acute fracture. Soft tissues: Unremarkable. IMPRESSION: There is mild to moderate microangiopathy and multifocal remote infarcts. No definite acute intracranial process is seen. ASSESSMENT: ASPECTS ([place] Stroke Program Early CT Score) is 10.
--- NOTE | 2021-07-02 12:36 | EDM.PDOC ---
ED HPI GENERAL MEDICAL PROBLEM - General Chief Complaint: Neuro Symptoms/Deficits Stated Complaint: [id number] MOUTH DROPING AND SLURRING Time Seen by Provider: 07/02/21 12:06 Source of Information: Reports: Patient, Family, RN, RN Notes Reviewed History Limitations: Reports: No Limitations - History of Present Illness INITIAL COMMENTS - FREE TEXT/NARRATIVE: Patient is a 75-year-old female who presents to ER with her daughter with complaint of left-sided facial drooping and slurred speech this morning. Daughter states slurred speech began on and off yesterday, she states this morning about 10:00 she thought that the left side of her face was drooping. Patient and daughter state the symptoms have improved since arriving at the ER. Patient denies any complaints of. Patient has bilateral AKA, and nephrostomy tubes. Patient has a history of chronic anemia and kidney disease. NIHSS = 2 Patient had a little difficulty with seeing pictures and words for the NIHSS scale. Patient is blind in the left eye and vision is poor in the right eye. Patient is a yuri lift from wheelchair to bed. Onset: Today, Sudden - Related Data Allergies Allergy/AdvReac Type Severity Reaction Status Date / Time gemfibrozil [From Lopid] Allergy Cannot Verified 07/02/21 12:17 Remember Penicillins Allergy Rash Verified 07/02/21 12:17 propranolol HCl Allergy Cannot Verified 07/02/21 12:17 [From Inderal LA] Remember codeine AdvReac Irritabilit Verified 07/02/21 12:17 y metformin AdvReac Shaking Verified 07/02/21 12:17 Home Meds: Home Meds Aspirin [Lo-Dose Aspirin EC] 81 mg PO DAILY 11/17/18 [History] Clopidogrel [Plavix] 75 mg PO DAILY 11/17/18 [History] Ascorbic Acid 500 mg PO BIDMEALS 12/14/20 [History] Brimonidine Tartrate/Timolol [Combigan 0.2%-0.5% Eye Drops] 1 drop EYERT BID 12/14/20 [History] Omeprazole 20 mg PO DAILY 12/14/20 [History] Bumetanide [Bumex] 1 mg PO DAILY #30 tablet 12/23/20 [Rx] Multivitamin with Minerals [Multiple Vitamin] 1 tab PO WITHBREAKFAST 04/14/21 [History] carvediloL [Carvedilol] 6.25 mg PO BIDMEALS 04/14/21 [History] Oxybutynin [Oxybutynin ER] 10 mg PO BEDTIME tab.er 04/16/21 [Rx] Docusate Sodium/Sennosides [Senna Plus] 2 tab PO BID tablet 05/15/21 [Rx] Magnesium Hydroxide [Milk of Magnesia] 30 ml PO Q12H cup 05/15/21 [Rx] Potassium Chloride [Potassium Chloride Solution] 29.3 meq PO DAILY cup 05/15/21 [Rx] Past Medical History HEENT History: Reports: Cataract, Impaired Vision Other HEENT History: wears glasses Cardiovascular History: Reports: Bypass, CAD, Heart Failure, High Cholesterol, Hypertension, PA, Stents Respiratory History: Reports: None Gastrointestinal History: Reports: Bowel Obstruction, Chronic Constipation Genitourinary History: Reports: UTI, Recurrent [employer] History: Reports: Musculoskeletal History: Reports: Osteoarthritis Neurological History: Reports: Neuropathy, Diabetic, Other (See Below) Other Neuro History: 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 Psychiatric History: Reports: None Endocrine/Metabolic History: Reports: Diabetes, Type II Hematologic History: Reports: Anemia, Blood Transfusion(s) Immunologic History: Reports: None Oncologic (Cancer) History: Reports: None Dermatologic History: Reports: None - Infectious Disease History Infectious Disease History: Reports: None - Past Surgical History Head Surgeries/Procedures: Reports: None HEENT Surgical History: Reports: Cataract Surgery Cardiovascular Surgical History: Reports: Coronary Artery Bypass GI Surgical History: Reports: Hernia Repair/Other Female Surgical History: Reports: Other (See Below) Other Female Surgeries/Procedures: bladder surgery, urostomy Neurological Surgical History: Reports: None Musculoskeletal Surgical History: Reports: Amputation, Other (See Below) Other Musculoskeletal Surgeries/Procedures:: carpal tunnel surgery, amputation December 06 left bka and March 16 right aka toal amputation of bilateral lower extremities above the knee Social & Family History - Family History Family Medical History: No Pertinent Family History - Tobacco Use Tobacco Use Status *Q: Unknown Ever Used Tobacco - Caffeine Use Caffeine Use: Reports: Coffee - Recreational Drug Use Recreational Drug Use: No - Living Situation & Occupation Living situation: Reports: Occupation: Retired ED ROS GENERAL - Review of Systems Review Of Systems: Comprehensive ROS is negative, except as noted in HPI. ED EXAM, NEURO - Physical Exam Exam: See Below Exam Limited By: No Limitations General Appearance: Alert, WD/WN, No Apparent Distress Eye Exam: Bilateral Eye: EOMI, Normal Inspection, PERRL (3 brisk) Ears: Normal External Exam, Hearing Grossly Normal Nose: Normal Inspection Throat/Mouth: Normal Inspection, Normal Voice, No Airway Compromise, Other (missing several teeth) Head Exam: Atraumatic, Normocephalic Neck: Normal Inspection, Supple, Non-Tender, Full Range of Motion Respiratory/Chest: No Respiratory Distress, No Accessory Muscle Use, Chest Non- Tender, Crackles (bases bilaterally) Cardiovascular: Normal Peripheral Pulses, Regular Rate, Rhythm, No Edema, No Gallop, No JVD, No Murmur, No Rub GI/Abdominal: Normal Bowel Sounds, Soft, Non-Tender (Female) Exam: Deferred Rectal (Female) Exam: Deferred Neurological: Alert, Normal Mood/Affect, CN II-XII Intact, Oriented x 3 Back Exam: Normal Inspection, Full Range of Motion Extremities: Other (Bilateral AKA) Psychiatric: Normal Affect, Normal Mood Skin Exam: Warm, Dry, Intact, Normal Color, No Rash #1 Interpretation EKG Date: 07/02/21 Time: 12:03 Rhythm: NSR Rate (Beats/Min): 53 [place]: Normal P-Wave: Present QRS: RBBB Comparison: Change From Previous EKG Course - Vital Signs Last Recorded V/S: Last Vital Signs Temp 97.4 F 07/02/21 12:06 Pulse 64 07/02/21 12:06 Resp 12 07/02/21 12:06 BP 186/70 H 07/02/21 12:06 Pulse Ox 100 07/02/21 12:06 - Orders/Labs/Meds Orders: Active Orders 24 hr Category Date Time Status CULTURE BLOOD [BC] Stat Lab 07/02/21 12:25 Received CULTURE URINE [RM] Stat Lab 07/02/21 13:08 Received Blood Culture x2 Reflex Set [OM.PC] Stat Oth 07/02/21 11:55 Ordered Labs: Laboratory Tests 07/02/21 07/02/21 07/02/21 Range/Units 11:39 12:25 12:25 WBC 6.8 (5.0-10.0) 10^3/uL RBC 3.23 L (4.2-5.4) 10^6/uL Hgb 9.5 L (12.0-16.0) g/dL Hct 30.4 L (37.0-47.0) % MCV 94.1 D (80-100) fL MCH 29.4 (27.0-34.0) pg MCHC 31.3 L (33.0-35.0) g/dL Plt Count 301 (150-450) 10^3/uL Neut % (Auto) 48.7 (42.2-75.2) % Lymph % (Auto) 32.8 (20.5-50.1) % [place] % (Auto) 9.1 H (2-8) % Eos % (Auto) 8.4 H (1.0-3.0) % Baso % (Auto) 1.0 (0.0-1.0) % ESR 57 H (0-20) mm/hr PT 10.4 (9.0-12.0) SEC INR 1.0 (0.9-1.2) Sodium (136-145) mmol/L Potassium (3.5-5.1) mmol/L Chloride (98-107) mmol/L Carbon Dioxide (21-32) mmol/L Anion Gap (7-13) mEq/L BUN (7-18) mg/dL Creatinine (0.55-1.02) mg/dL Est Cr Clr Drug Dosing Estimated GFR (MDRD) BUN/Creatinine Ratio (No establ ref range) Glucose (70-99) mg/dL POC Glucose 91 (70-99) mg/dL Lactic Acid (0.4-2.0) mmol/L Calcium (8.5-10.1) mg/dL Total Bilirubin (0.2-1.0) mg/dL AST (15-37) U/L ALT (14-59) U/L Alkaline Phosphatase (46-116) U/L Troponin I High Sens (<=51) pg/mL C-Reactive Protein (0.0-0.9) mg/dL Total Protein (6.4-8.2) g/dL Albumin (3.4-5.0) g/dL Globulin Albumin/Globulin Ratio Urine Color (YELLOW) Urine Appearance (CLEAR) Urine pH (5.0-9.0) Ur Specific [place] (1.005-1.030) Urine Protein (NEGATIVE) Urine Glucose (UA) (NEGATIVE) Urine Ketones (NEGATIVE) Urine Occult Blood (NEGATIVE) Urine Nitrite (NEGATIVE) Urine Bilirubin (NEGATIVE) Urine Urobilinogen (0.2-1.0) mg/dL Ur Leukocyte Esterase (NEGATIVE) Urine RBC (0-5) /HPF Urine WBC (0-5/HPF) /HPF Ur Epithelial Cells (NOT SEEN) /HPF Urine Bacteria (0-FEW/HPF) /HPF 07/02/21 07/02/21 07/02/21 Range/Units 12:25 12:25 13:08 WBC (5.0-10.0) 10^3/uL RBC (4.2-5.4) 10^6/uL Hgb (12.0-16.0) g/dL Hct (37.0-47.0) % MCV (80-100) fL MCH (27.0-34.0) pg MCHC (33.0-35.0) g/dL Plt Count (150-450) 10^3/uL Neut % (Auto) (42.2-75.2) % Lymph % (Auto) (20.5-50.1) % [place] % (Auto) (2-8) % Eos % (Auto) (1.0-3.0) % Baso % (Auto) (0.0-1.0) % ESR (0-20) mm/hr PT (9.0-12.0) SEC INR (0.9-1.2) Sodium 143 (136-145) mmol/L Potassium 3.4 L (3.5-5.1) mmol/L Chloride 111 H (98-107) mmol/L Carbon Dioxide 19 L (21-32) mmol/L Anion Gap 16.4 H (7-13) mEq/L BUN 44 H (7-18) mg/dL Creatinine 1.50 H (0.55-1.02) mg/dL Est Cr Clr Drug Dosing TNP Estimated GFR (MDRD) 34 BUN/Creatinine Ratio 29.3 (No establ ref range) Glucose 90 (70-99) mg/dL POC Glucose (70-99) mg/dL Lactic Acid 0.3 L (0.4-2.0) mmol/L Calcium 8.7 (8.5-10.1) mg/dL Total Bilirubin 0.3 (0.2-1.0) mg/dL AST 16 (15-37) U/L ALT 18 (14-59) U/L Alkaline Phosphatase 80 (46-116) U/L Troponin I High Sens 15 (<=51) pg/mL C-Reactive Protein < 0.2 (0.0-0.9) mg/dL Total Protein 6.4 (6.4-8.2) g/dL Albumin 2.4 L (3.4-5.0) g/dL Globulin 4.0 Albumin/Globulin Ratio 0.60 Urine Color Yellow (YELLOW) Urine Appearance Cloudy (CLEAR) Urine pH 7.0 (5.0-9.0) Ur Specific [place] 1.025 (1.005-1.030) Urine Protein >=300 H (NEGATIVE) Urine Glucose (UA) Negative (NEGATIVE) Urine Ketones Negative (NEGATIVE) Urine Occult Blood Moderate H (NEGATIVE) Urine Nitrite Negative (NEGATIVE) Urine Bilirubin Negative (NEGATIVE) Urine Urobilinogen 0.2 (0.2-1.0) mg/dL Ur Leukocyte Esterase Large H (NEGATIVE) Urine RBC 50-75 H (0-5) /HPF Urine WBC Packed H (0-5/HPF) /HPF Ur Epithelial Cells Not seen (NOT SEEN) /HPF Urine Bacteria Many H (0-FEW/HPF) /HPF - Radiology Interpretation Free Text/Narrative:: Head CT wo contrast: [facility] Final Radiology Report Call: [phone] assistance Online chat: [email or web address] Name: OSWALD HOWELL Age: 75Years F Date: 07/02/2021 SSN: -- : [id number] Study: CT HEAD WO CONT Requesting Physician: Jennifer Vallejo Images: [phone] Addl Studies: Provided Clinical History: slurred speech, facial droop Contrast: Without Contrast Medium: Contrast Amount: Contrast Method: Page 1 of 2 PROCEDURE INFORMATION: Exam: CT Head Without Contrast Exam date and time: 07/02/2021 12:13 PM Age: 75 years old Clinical indication: Other: Slurred speech, facial droop TECHNIQUE: Imaging protocol: Computed tomography of the head without contrast. Radiation optimization: All CT scans at this facility use at least one of these dose optimization techniques: automated exposure control; mA and/or kV adjustment per patient size (includes targeted exams where dose is matched to clinical indication); or iterative reconstruction. Other technique: STROKE PROTOCOL was implemented. COMPARISON: CT Head wo Cont 05/14/2021 11:50 PM FINDINGS: Brain: There is mild atrophy and mild to moderate microangiopathy. There are remote multifocal lacunar infarcts seen within the basal ganglia. A subtle area of low attenuation within the left gisselle with seen on the prior examination. This could be artifactual or related to an old infarct. Cerebral ventricles: No ventriculomegaly. Paranasal sinuses: Visualized sinuses are unremarkable. No fluid levels. Mastoid air cells: Visualized mastoid air cells are well aerated. Bones/joints: Unremarkable. No acute fracture. Soft tissues: Unremarkable. IMPRESSION: There is mild to moderate microangiopathy and multifocal remote infarcts. No definite acute intracranial process is seen. ASSESSMENT: ASPECTS (Melody Stroke Program Early CT Score) is 10. Thank you for allowing us to participate in the care of your patient. Dictated and Authenticated by: Haseeb Randall MD 07/02/2021 12:20 PM Central Time ([place] & [place]) See rad report Departure - Departure Time of Disposition: 13:39 Disposition: Home, Self-Care 01 Condition: Fair Clinical Impression: Chronic anemia, TIA (transient ischemic attack), S/P AKA (above knee amputation) bilateral UTI (urinary tract infection) due to urinary indwelling catheter Qualifiers: Indwelling urinary catheter type: nephrostomy catheter Encounter type: initial encounter Qualified Code(s): T83.512A - Infection and inflammatory reaction due to nephrostomy catheter, initial encounter - Discharge Information *PRESCRIPTION DRUG MONITORING PROGRAM REVIEWED*: No *COPY OF PRESCRIPTION DRUG MONITORING REPORT IN PATIENT MALLORY: No Instructions: Anemia, Transient Ischemic Attack, [id number] Forms: ED Department Discharge Additional Instructions: Return to ER with any worsening of problems Follow up with your primary care facility next week with further problems RX: Cipro 500mg orally twice daily for 7 days Sepsis Event Note (ED) - Focused Exam Vital Signs: Vital Signs Temp Pulse Resp BP Pulse Ox 07/02/21 12:06 97.4 F 64 12 186/70 H 100 - My Orders Last 24 Hours: My Active Orders 07/02/21 11:55 Blood Culture x2 Reflex Set [OM.PC] Stat 07/02/21 12:25 CULTURE BLOOD [BC] Stat 07/02/21 13:08 CULTURE URINE [RM] Stat - Assessment/Plan Last 24 Hours: My Active Orders 07/02/21 11:55 Blood Culture x2 Reflex Set [OM.PC] Stat 07/02/21 12:25 CULTURE BLOOD [BC] Stat 07/02/21 13:08 CULTURE URINE [RM] Stat
[2021-07-02 13:05] LABS: ANION GAP 16.4 mEq/L (7-13); CHLORIDE,CL 111 mmol/L (98-107); SODIUM,NA 143 mmol/L (136-145)
== END 2021-07-02 14:09 | disposition home or self-care (01) ==
LOC: DL.ED 11:31
DX: T83.512A Infection and inflammatory reaction due to nephrostomy catheter, initial encounter (principal); N39.0 Urinary tract infection, site not specified; G45.9 Transient cerebral ischemic attack, unspecified; D64.9 Anemia, unspecified; I45.10 Unspecified right bundle-branch block; I25.10 Atherosclerotic heart disease of native coronary artery without angina pectoris; I11.0 Hypertensive heart disease with heart failure; I50.9 Heart failure, unspecified; I25.2 Old myocardial infarction; M19.90 Unspecified osteoarthritis, unspecified site; E11.40 Type 2 diabetes mellitus with diabetic neuropathy, unspecified; Z89.611 Acquired absence of right leg above knee; Z89.612 Acquired absence of left leg above knee; Z88.8 Allergy status to other drugs, medicaments and biological substances; Z88.0 Allergy status to penicillin; Z88.5 Allergy status to narcotic agent; Z79.82 Long term (current) use of aspirin; Z79.02 Long term (current) use of antithrombotics/antiplatelets; Z79.899 Other long term (current) drug therapy
CPT/HCPCS: 36415; 70450; 80053; 81001; 82947; 83605; 84484; 85025; 85610; 85651; 86140; 87040; 87086; 87088; 87186; 93005; 99285-25